=== PATIENT | female | born 1950 | race Caucasian/White ===

== ENCOUNTER → 2018-02-08 10:56 | Outpatient (CLI) | payer MEDICARE, OTHER, SELFPAY ==
--- NOTE | 2018-02-08 | DI.MG.S_ITS ---
BILATERAL DIGITAL SCREENING MAMMOGRAM 3D/2D WITH CAD: 02/08/2018 CLINICAL: Routine screening. Family history of breast cancer. Comparison is made to exams dated: 01/12/2017 mammogram - [facility], 11/13/2015 mammogram, and 12/04/2014 mammogram - [facility]. There are scattered fibroglandular elements in both breasts. Current study was also evaluated with a Computer Aided Detection (CAD) system. No significant masses, calcifications, or other findings are seen in either breast. There has been no significant interval change. IMPRESSION: NEGATIVE There is no mammographic evidence of malignancy. A 1 year screening mammogram is recommended.(02/09/2019) This exam was interpreted at Station ID: [id number]. NOTE: For mammograms, a report in lay terms will be sent to the patient. Approximately 15% of breast malignancies will not be visualized mammographically. In the management of a palpable breast mass, a negative mammogram must not discourage biopsy of a clinically suspicious lesion. Electronically Signed By: Julio [email or web address]:02/08/2018 11:52:38 letter sent: Normal Exam ACR BI-RADS Category 1: Negative [id number]
== END ==
PROVIDERS: PCP Physician Assistant Medical; Visit Provider Physician Assistant Medical
DX: Z12.31 Encounter for screening mammogram for malignant neoplasm of breast (principal); Z80.3 Family history of malignant neoplasm of breast
CPT/HCPCS: 77063; 77067

== ENCOUNTER 2018-04-27 10:30 | Outpatient (RCR) | payer MEDICARE, OTHER, SELFPAY ==
--- NOTE | 2018-03-06 17:10 | PT.OIE ---
Current Diagnoses Stiffness of left elbow, not elsewhere classified (03/06/18) Weakness (03/06/18) Nondisplaced fracture of head of left radius, initial encounter for closed fracture (03/06/18) Provider Visit Care Team Role Provider Type Renu Pringle PA-C Primary Care Provider Non-Staff Specialty: Medical Address: [address] [place] [address] [address], [place], [address] Email: EMMY Melendez Attending Provider Non-Staff Specialty: Family Practice Address: [address] [place] [address], [address], [place], [address] Email: Physical Therapy Initial Evaluation PT-OP-A Visit Information Start: 03/06/18 09:11 Freq: Status: Active Protocol: Document 03/06/18 16:23 ML (Rec: 03/06/18 17:04 ML [email or web address]) Out-Patient Physical Therapy Visit Information Visit Information Visit Type Initial Evaluation Visit Start Time 13:00 Visit Stop Time 13:45 Total Visit Minutes 45 Visit Number / Number of LINE MAINTAINER SECTION Visits 0 PT-OP-B Current Condition Start: 03/06/18 09:11 Freq: Status: Active Protocol: Document 03/06/18 16:23 ML (Rec: 03/06/18 17:04 ML [email or web address]) Current Condition History of Current Condition Onset Date 01/24/18 Current Complaints L radial head fx and elbow contracture History of Current Condition Pt fell on her elbow on and reports that her immediate x-ray indicated fracture of her radial head. Pt also states that her follow up x-ray a few weeks later indicated that a piece of the bone was chipped and is floating and that she was closed to healed. Doctor estimated a couple more weeks for full healing. The pt iced frequently wore a sling for 4 weeks after fracture which she believes has contributed to her current loss of motion. The pt states that she has pain when pressure is applied to her elbow by leaning on them or rolling onto the elbow in sleeping which wakes her. The pt denies any numbness or tingling, and has no pain when using her elbow to do functional activities unless it involves contact with her elbow. She mentions that she doesn't feel as strong in general, and notices that she is unable to lift her wts when she does her yoga exercises that involve hand wts. Her biggest complaints involve not being able to dance the [place] or reaching her cupboards in the kitchen which are both limited by her lack of ROM. 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 PT-OP-C Subjective Start: 03/06/18 09:11 Freq: Status: Active Protocol: Document 03/06/18 16:23 ML (Rec: 03/06/18 17:04 ML [email or web address]) OP-PT Subjective Patient Comments Patient Comments Pt was very clear about indicating that her ROM is the biggest limitation and is where she would like to improve in therapy most. Patient Questionnaires Quick Dash- Upper Extremity Quick Dash UE Score 18.18 Quick Dash UE Impairment 1 to 19% Impaired (Score 1-19) OP-PT Pain Assessment Location 1 Pain Location Details post elbow L Intensity 2 Scale Used Numeric (1 - 10) Frequency Intermittent Pain Duration only with contact pressure Other Pain Aggravating Factors leaning on elbows or rolling onto elbow while sleeping PT-OP-F Manual Assessment Start: 03/06/18 09:11 Freq: Status: Active Protocol: Document 03/06/18 16:23 ML (Rec: 03/06/18 17:04 ML [email or web address]) Manual Assessments Soft Tissue Assessment Soft Tissue Mobility Assessment tight wrist extensors on L PT-OP-K Range of Motion Start: 03/06/18 09:11 Freq: Status: Active Protocol: Document 03/06/18 16:23 ML (Rec: 03/06/18 17:04 ML [email or web address]) Shoulder Goniometric Range of Motion Shoulder Measured in Degrees L Testing Position Sitting Flexion 145 R Testing Position Sitting Flexion 161 Elbow/Forearm Range of Motion Elbow/Forearm Measured in Degrees L ROM Testing Position Sitting Elbow Flexion (degrees) 141 Elbow Extension (degrees) 30 Pronation (degrees) 94 Supination (degrees) 115 R ROM Testing Position Sitting Elbow Flexion (degrees) 156 Elbow Hyperextension 4 PT-OP-M Strength Start: 03/06/18 09:11 Freq: Status: Active Protocol: Document 03/06/18 16:23 ML (Rec: 03/06/18 17:04 ML [email or web address]) Shoulder Strength Shoulder Manual Muscle Testing L Flexion 4- Good- Extension 4 Good Abduction (C5) 4- Good- External Rotation 4 Good Internal Rotation 4 Good R Flexion 4- Good- Extension 4+ Good+ Abduction (C5) 4 Good External Rotation 4 Good Internal Rotation 4 Good Elbow/Forearm Strength Elbow and Forearm Manual Muscle Testing L Flexion (C6) 4+ Good+ Extension (C7) 4 Good Pronation 5 Normal Supination 5 Normal R Flexion (C6) 5 Normal Extension (C7) 4+ Good+ Wrist Strength Wrist Manual Muscle Testing L Flexion (C7) 4+ Good+ Extension (C6) 4 Good Ulnar Deviation 4 Good Radial Deviation 4 Good Comments some pain w/wrist flex R Flexion (C7) 4+ Good+ Extension (C6) 4+ Good+ Ulnar Deviation 4 Good Radial Deviation 4 Good Hand Rail Car Painter/Sandblaster/Pinch Strength Hand Strength Right Comments 45/46/45 3 trials Left Comments 46/40/45 3 trials PT-OP-Q Treatments Start: 03/06/18 09:11 Freq: Status: Active Protocol: Document 03/06/18 16:23 ML (Rec: 03/06/18 17:04 ML [email or web address]) Therapeutic Exercises Sitting Exercises 1 Sitting Exercise Name wrist ext stretch Side left PT-OP-T Assessment and Plan Start: 03/06/18 09:11 Freq: Status: Active Protocol: Document 03/06/18 16:23 ML (Rec: 03/06/18 17:04 ML [email or web address]) Physical Therapy Assessment Rehab Potential Rehabilitation Potential Good Evaluation Complexity Number of Personal Factors/Comorbidities 1-2 Number of Body Systems Impaired 4 or More Clinical Presentation at Evaluation Stable Impairments Impairments Functional Activities Functional Mobility Pain Posture ROM Soft Tissue Mobility Strength Tone Goals 2 Impairment dec strength Short Term Goal (STG) Pt will be independent with HEP. STG Duration 04/06/18 [facility] Goal (LTG) Pt will improve her elbow and strength to 5/5 without pain in order to do her yoga routine. LTG Duration 05/06/18 1 Impairment dec ROM Actuarial Consultant Goal (LTG) Pt will improve her ROM in order to reach her kitchen cupboards and dance the [place]. LTG Duration 05/06/18 Assessment Summary Assessment Pt presents to PT with evident elbow contracture. Pt's overall UE strength is strong regarding current condition, yet there seem to be some dec in strength bilaterally. She also indicates that she sometimes gets pain through her extensor muscles of her wrist, although did not present with pain when tested for wrist extension strength during the evaluation, but did indicate that there was some pain during wrist flexion and supination. The pt was given a wrist extensor stretch for her tight extensor muscles to work on at home. The pt demonstrated significantly more motion w/her R elbow than L, but there were limitations bilaterally in her shoulder ROM when assessed. Physical Therapy Plan Frequency and Duration Frequency of Treatment 2x/Week Duration of Treatment 2 months Plan of Care Start Date 03/06/18 Plan of Care End Date 05/06/18 Therapeutic Interventions Therapeutic Interventions Coordination Training Home Exercise Program Joint Mobilizations Manual Therapy Neuromuscular Re-education Patient/Caregiver Education Self-Care/Home Management Soft Tissue Mobilization Taping Therapeutic Activities Therapeutic Exercises Modalities Cold Pack/Ice Massage Electric Stimulation Hot Packs Infrared Therapy Iontophoresis Ultrasound Next Visit Focus/Plan Next Note Type Treatment Note Next Visit Plan HEP (stretch, strengthen), manual prn
--- NOTE | 2018-03-06 17:10 | PT.OPPOC ---
Current Diagnoses Stiffness of left elbow, not elsewhere classified (03/06/18) Weakness (03/06/18) Nondisplaced fracture of head of left radius, initial encounter for closed fracture (03/06/18) Provider Visit Care Team Role Provider Type Renu Pringle PA-C Primary Care Provider Non-Staff Specialty: Medical Address: [address] [place] [address] [address], [place], [address] Email: EMMY Melendez Attending Provider Non-Staff Specialty: Family Practice Address: [address] [place] [address] Drive, [address], [place], [address] Email: Plan Of Care PT-OP-T Assessment and Plan Start: 03/06/18 09:11 Freq: Status: Active Protocol: Document 03/06/18 16:23 ML (Rec: 03/06/18 17:04 ML [email or web address]) Physical Therapy Assessment Rehab Potential Rehabilitation Potential Good Evaluation Complexity Number of Personal Factors/Comorbidities 1-2 Number of Body Systems Impaired 4 or More Clinical Presentation at Evaluation Stable Impairments Impairments Functional Activities Functional Mobility Pain Posture ROM Soft Tissue Mobility Strength Tone Goals 2 Impairment dec strength Short Term Goal (STG) Pt will be independent with HEP. STG Duration 04/06/18 Jail Goal (LTG) Pt will improve her elbow and strength to 5/5 without pain in order to do her yoga routine. LTG Duration 05/06/18 1 Impairment dec ROM Tobacco Shaker Goal (LTG) Pt will improve her ROM in order to reach her kitchen cupboards and dance the [place]. LTG Duration 05/06/18 Assessment Summary Assessment Pt presents to PT with evident elbow contracture. Pt's overall UE strength is strong regarding current condition, yet there seem to be some dec in strength bilaterally. She also indicates that she sometimes gets pain through her extensor muscles of her wrist, although did not present with pain when tested for wrist extension strength during the evaluation, but did indicate that there was some pain during wrist flexion and supination. The pt was given a wrist extensor stretch for her tight extensor muscles to work on at home. The pt demonstrated significantly more motion w/her R elbow than L, but there were limitations bilaterally in her shoulder ROM when assessed. Physical Therapy Plan Frequency and Duration Frequency of Treatment 2x/Week Duration of Treatment 2 months Plan of Care Start Date 03/06/18 Plan of Care End Date 05/06/18 Therapeutic Interventions Therapeutic Interventions Coordination Training Home Exercise Program Joint Mobilizations Manual Therapy Neuromuscular Re-education Patient/Caregiver Education Self-Care/Home Management Soft Tissue Mobilization Taping Therapeutic Activities Therapeutic Exercises Modalities Cold Pack/Ice Massage Electric Stimulation Hot Packs Infrared Therapy Iontophoresis Ultrasound Next Visit Focus/Plan Next Note Type Treatment Note Next Visit Plan HEP (stretch, strengthen), manual prn Plan of Care Dates Plan of Care Start Date 03/06/18 Plan of Care End Date 05/06/18 Please Sign and Return: I have reviewed this Plan of Care and certify that the skilled therapy services above are required to meet the patient?s needs. Physician Signature Date Printed Name and Credentials Clinical Instructor Signature Printed Name and Credentials
--- NOTE | 2018-03-13 11:23 | PT.OTN ---
Current Diagnoses Nondisplaced fracture of head of left radius, initial encounter for closed fracture (03/13/18) Physical Therapy Treatment Note PT-OP-A Visit Information Start: 03/06/18 09:11 Freq: Status: Active Protocol: Document 03/13/18 11:13 SA (Rec: 03/13/18 11:23 SA [email or web address]) Out-Patient Physical Therapy Visit Information Visit Information Visit Type Treatment Note Visit Start Time 09:00 Visit Stop Time 09:53 Total Visit Minutes 53 Visit Number 07/15 PT-OP-B Current Condition Start: 03/06/18 09:11 Freq: Status: Active Protocol: Document 03/06/18 16:23 ML (Rec: 03/06/18 17:04 ML [email or web address]) Current Condition History of Current Condition Onset Date 01/24/18 Current Complaints L radial head fx and elbow contracture History of Current Condition Pt fell on her elbow on and reports that her immediate x-ray indicated fracture of her radial head. Pt also states that her follow up x-ray a few weeks later indicated that a piece of the bone was chipped and is floating and that she was closed to healed. Doctor estimated a couple more weeks for full healing. The pt iced frequently wore a sling for 4 weeks after fracture which she believes has contributed to her current loss of motion. The pt states that she has pain when pressure is applied to her elbow by leaning on them or rolling onto the elbow in sleeping which wakes her. The pt denies any numbness or tingling, and has no pain when using her elbow to do functional activities unless it involves contact with her elbow. She mentions that she doesn't feel as strong in general, and notices that she is unable to lift her wts when she does her yoga exercises that involve hand wts. Her biggest complaints involve not being able to dance the [place] or reaching her cupboards in the kitchen which are both limited by her lack of ROM. 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 PT-OP-C Subjective Start: 03/06/18 09:11 Freq: Status: Active Protocol: Document 03/13/18 11:13 SA (Rec: 03/13/18 11:23 SA [email or web address]) OP-PT Subjective Patient Comments Patient Comments Pt notes progress, and increased ability to extend and flex elbow, doing HEP regularly. Patient Reported Progress Improving PT-OP-F Manual Assessment Start: 03/06/18 09:11 Freq: Status: Active Protocol: Document 03/06/18 16:23 ML (Rec: 03/06/18 17:04 ML [email or web address]) Manual Assessments Soft Tissue Assessment Soft Tissue Mobility Assessment tight wrist extensors on L PT-OP-K Range of Motion Start: 03/06/18 09:11 Freq: Status: Active Protocol: Document 03/06/18 16:23 ML (Rec: 03/06/18 17:04 ML [email or web address]) Shoulder Goniometric Range of Motion Shoulder Measured in Degrees L Testing Position Sitting Flexion 145 R Testing Position Sitting Flexion 161 Elbow/Forearm Range of Motion Elbow/Forearm Measured in Degrees L ROM Testing Position Sitting Elbow Flexion (degrees) 141 Elbow Extension (degrees) 30 Pronation (degrees) 94 Supination (degrees) 115 R ROM Testing Position Sitting Elbow Flexion (degrees) 156 Elbow Hyperextension 4 PT-OP-M Strength Start: 03/06/18 09:11 Freq: Status: Active Protocol: Document 03/06/18 16:23 ML (Rec: 03/06/18 17:04 ML [email or web address]) Shoulder Strength Shoulder Manual Muscle Testing L Flexion 4- Good- Extension 4 Good Abduction (C5) 4- Good- External Rotation 4 Good Internal Rotation 4 Good R Flexion 4- Good- Extension 4+ Good+ Abduction (C5) 4 Good External Rotation 4 Good Internal Rotation 4 Good Elbow/Forearm Strength Elbow and Forearm Manual Muscle Testing L Flexion (C6) 4+ Good+ Extension (C7) 4 Good Pronation 5 Normal Supination 5 Normal R Flexion (C6) 5 Normal Extension (C7) 4+ Good+ Wrist Strength Wrist Manual Muscle Testing L Flexion (C7) 4+ Good+ Extension (C6) 4 Good Ulnar Deviation 4 Good Radial Deviation 4 Good Comments some pain w/wrist flex R Flexion (C7) 4+ Good+ Extension (C6) 4+ Good+ Ulnar Deviation 4 Good Radial Deviation 4 Good Hand Low Pressure Kettle Operator/Pinch Strength Hand Strength Right Comments 45/46/45 3 trials Left Comments 46/40/45 3 trials PT-OP-Q Treatments Start: 03/06/18 09:11 Freq: Status: Active Protocol: Document 03/13/18 11:13 SA (Rec: 03/13/18 11:23 SA [email or web address]) Therapeutic Exercises Supine Exercises Shoulder flexion Resistance 3# Reps/Minutes 2 x 15 1 Supine Exercise Name elbow ext Side bilateral Resistance 3# Reps/Minutes 2 x 15 Comments HEP Sitting Exercises 2 Sitting Exercise Name radial and ulnar deviation Side bilateral Resistance level 1 Reps/Minutes 2 x 15 1 Sitting Exercise Name wrist ext stretch Side left Reps/Minutes 30 holds Manual Therapy Treatment Soft Tissue Mobilization 1 Body Location L wrist extensors Mobilization Type Cross-Friction Myofascial Release Rolling Sustained Pressure Intensity/Depth Moderate Body Position Sitting PT-OP-R Modalities Start: 03/06/18 09:11 Freq: Status: Active Protocol: Document 03/13/18 11:13 SA (Rec: 03/13/18 11:23 SA [email or web address]) Hot Pack/Cold Pack Treatment Cold Pack Location L elbow Treatment Duration (minutes) 10 PT-OP-T Assessment and Plan Start: 03/06/18 09:11 Freq: Status: Active Protocol: Document 03/13/18 11:13 SA (Rec: 03/13/18 11:23 SA [email or web address]) Physical Therapy Assessment Rehab Potential Rehabilitation Potential Good Progress Towards Goals Progress Towards Goals Progressing Toward Goals Assessment Summary Assessment Pt tolerating HEP well with noted improvement of elbow ROM , uses ice as needed for pain management. Physical Therapy Plan Next Visit Focus/Plan Next Note Type Treatment Note Next Visit Plan Continue with HEP and icing at home. Re assess tolerance of STM/manual treatment.
--- NOTE | 2018-03-16 13:31 | PT.OTN ---
Current Diagnoses Nondisplaced fracture of head of left radius, initial encounter for closed fracture (03/16/18) Physical Therapy Treatment Note PT-OP-A Visit Information Start: 03/06/18 09:11 Freq: Status: Active Protocol: Document 03/16/18 13:20 SA (Rec: 03/16/18 13:31 SA [email or web address]) Out-Patient Physical Therapy Visit Information Visit Information Visit Type Treatment Note Visit Start Time 09:50 Visit Stop Time 10:35 Total Visit Minutes 45 Visit Number 4/10 Number of HEALTHCARE TECHNICIAN Visits 2 PT-OP-B Current Condition Start: 03/06/18 09:11 Freq: Status: Active Protocol: Document 03/06/18 16:23 ML (Rec: 03/06/18 17:04 ML [email or web address]) Current Condition History of Current Condition Onset Date 01/24/18 Current Complaints L radial head fx and elbow contracture History of Current Condition Pt fell on her elbow on and reports that her immediate x-ray indicated fracture of her radial head. Pt also states that her follow up x-ray a few weeks later indicated that a piece of the bone was chipped and is floating and that she was closed to healed. Doctor estimated a couple more weeks for full healing. The pt iced frequently wore a sling for 4 weeks after fracture which she believes has contributed to her current loss of motion. The pt states that she has pain when pressure is applied to her elbow by leaning on them or rolling onto the elbow in sleeping which wakes her. The pt denies any numbness or tingling, and has no pain when using her elbow to do functional activities unless it involves contact with her elbow. She mentions that she doesn't feel as strong in general, and notices that she is unable to lift her wts when she does her yoga exercises that involve hand wts. Her biggest complaints involve not being able to dance the [place] or reaching her cupboards in the kitchen which are both limited by her lack of ROM. 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 PT-OP-C Subjective Start: 03/06/18 09:11 Freq: Status: Active Protocol: Document 03/16/18 13:20 SA (Rec: 03/16/18 13:31 SA [email or web address]) OP-PT Subjective Patient Comments Patient Comments Gradual improvement in motion of elbow. Decreasing instances of pain. Patient Reported Progress Improving PT-OP-F Manual Assessment Start: 03/06/18 09:11 Freq: Status: Active Protocol: Document 03/06/18 16:23 ML (Rec: 03/06/18 17:04 ML [email or web address]) Manual Assessments Soft Tissue Assessment Soft Tissue Mobility Assessment tight wrist extensors on L PT-OP-K Range of Motion Start: 03/06/18 09:11 Freq: Status: Active Protocol: Document 03/06/18 16:23 ML (Rec: 03/06/18 17:04 ML [email or web address]) Shoulder Goniometric Range of Motion Shoulder Measured in Degrees L Testing Position Sitting Flexion 145 R Testing Position Sitting Flexion 161 Elbow/Forearm Range of Motion Elbow/Forearm Measured in Degrees L ROM Testing Position Sitting Elbow Flexion (degrees) 141 Elbow Extension (degrees) 30 Pronation (degrees) 94 Supination (degrees) 115 R ROM Testing Position Sitting Elbow Flexion (degrees) 156 Elbow Hyperextension 4 PT-OP-M Strength Start: 03/06/18 09:11 Freq: Status: Active Protocol: Document 03/06/18 16:23 ML (Rec: 03/06/18 17:04 ML [email or web address]) Shoulder Strength Shoulder Manual Muscle Testing L Flexion 4- Good- Extension 4 Good Abduction (C5) 4- Good- External Rotation 4 Good Internal Rotation 4 Good R Flexion 4- Good- Extension 4+ Good+ Abduction (C5) 4 Good External Rotation 4 Good Internal Rotation 4 Good Elbow/Forearm Strength Elbow and Forearm Manual Muscle Testing L Flexion (C6) 4+ Good+ Extension (C7) 4 Good Pronation 5 Normal Supination 5 Normal R Flexion (C6) 5 Normal Extension (C7) 4+ Good+ Wrist Strength Wrist Manual Muscle Testing L Flexion (C7) 4+ Good+ Extension (C6) 4 Good Ulnar Deviation 4 Good Radial Deviation 4 Good Comments some pain w/wrist flex R Flexion (C7) 4+ Good+ Extension (C6) 4+ Good+ Ulnar Deviation 4 Good Radial Deviation 4 Good Hand Inspector Rag Sorting/Pinch Strength Hand Strength Right Comments 45/46/45 3 trials Left Comments 46/40/45 3 trials PT-OP-Q Treatments Start: 03/06/18 09:11 Freq: Status: Active Protocol: Document 03/16/18 13:20 SA (Rec: 03/16/18 13:31 SA [email or web address]) Cardio Equipment Upper Body Ergometer (UBE) Duration (Minutes) 4 Other level 60 Therapeutic Exercises Supine Exercises Shoulder flexion Resistance 3# Reps/Minutes 2 x 15 1 Supine Exercise Name elbow ext Side bilateral Resistance 3# Reps/Minutes 2 x 15 Sitting Exercises 2 Sitting Exercise Name radial and ulnar deviation Side bilateral Resistance level 1 Reps/Minutes 2 x 15 1 Sitting Exercise Name wrist ext stretch Side left Reps/Minutes 30 holds Manual Therapy Treatment Soft Tissue Mobilization 1 Body Location L wrist extensors Mobilization Type Cross-Friction Myofascial Release Rolling Sustained Pressure Intensity/Depth Moderate Body Position Sitting PT-OP-R Modalities Start: 03/06/18 09:11 Freq: Status: Active Protocol: Document 03/16/18 13:20 (Rec: 03/16/18 13:31 [email or web address]) Hot Pack/Cold Pack Treatment Cold Pack Location L elbow Treatment Duration (minutes) 10 PT-OP-T Assessment and Plan Start: 03/06/18 09:11 Freq: Status: Active Protocol: Document 03/16/18 13:20 (Rec: 03/16/18 13:31 [email or web address]) Physical Therapy Assessment Assessment Summary Assessment Pt doing HEP daily and to assess response to UBE, continued increase in ROM. Physical Therapy Plan Next Visit Focus/Plan Next Note Type Treatment Note Next Visit Plan Pt to continue with HEP and icing and assess response to UBE.
--- NOTE | 2018-03-20 16:04 | PT.OTN ---
Current Diagnoses Nondisplaced fracture of head of left radius, initial encounter for closed fracture (03/16/18) Physical Therapy Treatment Note PT-OP-A Visit Information Start: 03/06/18 09:11 Freq: Status: Active Protocol: Document 03/20/18 15:11 [facility] (Rec: 03/20/18 15:29 [facility] [email or web address]) Out-Patient Physical Therapy Visit Information Visit Information Visit Type Treatment Note Visit Note 1st 15 min of rx performed by Elizabeth Null PT then taken over by this PT Visit Start Time 13:30 Visit Stop Time 14:25 Total Visit Minutes 55 Visit Number 5/ Number of TAPPET ADJUSTER Visits 0 PT-OP-B Current Condition Start: 03/06/18 09:11 Freq: Status: Active Protocol: Document 03/06/18 16:23 ML (Rec: 03/06/18 17:04 ML [email or web address]) Current Condition History of Current Condition Onset Date 01/24/18 Current Complaints L radial head fx and elbow contracture History of Current Condition Pt fell on her elbow on and reports that her immediate x-ray indicated fracture of her radial head. Pt also states that her follow up x-ray a few weeks later indicated that a piece of the bone was chipped and is floating and that she was closed to healed. Doctor estimated a couple more weeks for full healing. The pt iced frequently wore a sling for 4 weeks after fracture which she believes has contributed to her current loss of motion. The pt states that she has pain when pressure is applied to her elbow by leaning on them or rolling onto the elbow in sleeping which wakes her. The pt denies any numbness or tingling, and has no pain when using her elbow to do functional activities unless it involves contact with her elbow. She mentions that she doesn't feel as strong in general, and notices that she is unable to lift her wts when she does her yoga exercises that involve hand wts. Her biggest complaints involve not being able to dance the [place] or reaching her cupboards in the kitchen which are both limited by her lack of ROM. 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 PT-OP-C Subjective Start: 03/06/18 09:11 Freq: Status: Active Protocol: Document 03/20/18 15:11 [facility] (Rec: 03/20/18 15:38 [facility] [email or web address]) OP-PT Subjective Patient Comments Patient Comments Pt reports she used her split mirror to help with improving elbow flexion. PT-OP-F Manual Assessment Start: 03/06/18 09:11 Freq: Status: Active Protocol: Document 03/06/18 16:23 ML (Rec: 03/06/18 17:04 ML [email or web address]) Manual Assessments Soft Tissue Assessment Soft Tissue Mobility Assessment tight wrist extensors on L PT-OP-K Range of Motion Start: 03/06/18 09:11 Freq: Status: Active Protocol: Document 03/06/18 16:23 ML (Rec: 03/06/18 17:04 ML [email or web address]) Shoulder Goniometric Range of Motion Shoulder Measured in Degrees L Testing Position Sitting Flexion 145 R Testing Position Sitting Flexion 161 Elbow/Forearm Range of Motion Elbow/Forearm Measured in Degrees L ROM Testing Position Sitting Elbow Flexion (degrees) 141 Elbow Extension (degrees) 30 Pronation (degrees) 94 Supination (degrees) 115 R ROM Testing Position Sitting Elbow Flexion (degrees) 156 Elbow Hyperextension 4 PT-OP-M Strength Start: 03/06/18 09:11 Freq: Status: Active Protocol: Document 03/06/18 16:23 ML (Rec: 03/06/18 17:04 ML [email or web address]) Shoulder Strength Shoulder Manual Muscle Testing L Flexion 4- Good- Extension 4 Good Abduction (C5) 4- Good- External Rotation 4 Good Internal Rotation 4 Good R Flexion 4- Good- Extension 4+ Good+ Abduction (C5) 4 Good External Rotation 4 Good Internal Rotation 4 Good Elbow/Forearm Strength Elbow and Forearm Manual Muscle Testing L Flexion (C6) 4+ Good+ Extension (C7) 4 Good Pronation 5 Normal Supination 5 Normal R Flexion (C6) 5 Normal Extension (C7) 4+ Good+ Wrist Strength Wrist Manual Muscle Testing L Flexion (C7) 4+ Good+ Extension (C6) 4 Good Ulnar Deviation 4 Good Radial Deviation 4 Good Comments some pain w/wrist flex R Flexion (C7) 4+ Good+ Extension (C6) 4+ Good+ Ulnar Deviation 4 Good Radial Deviation 4 Good Hand Dietitian Research/Pinch Strength Hand Strength Right Comments 45/46/45 3 trials Left Comments 46/40/45 3 trials PT-OP-Q Treatments Start: 03/06/18 09:11 Freq: Status: Active Protocol: Document 03/20/18 15:11 [facility] (Rec: 03/20/18 15:38 [facility] [email or web address]) Cardio Equipment Upper Body Ergometer (UBE) Duration (Minutes) 5 RPM 60 Manual Therapy Treatment Soft Tissue Mobilization biceps Body Location biceps medially Mobilization Type Rolling Intensity/Depth Moderate Body Position Supine 1 Body Location L wrist extensors Mobilization Type Cross-Friction Myofascial Release Rolling Sustained Pressure Intensity/Depth Moderate Body Position Supine Joint Mobilizations proximal radioulnar Joint radius Direction AP with motion into ext distal radioulnar Joint distal radioulnar Direction AP Grade II Body Position Supine Comments sustained humeroulnar Joint humeroulnar Direction distraction FM into elbow flex Body Position Supine PT-OP-R Modalities Start: 03/06/18 09:11 Freq: Status: Active Protocol: Document 03/20/18 15:11 [facility] (Rec: 03/20/18 15:29 [facility] [email or web address]) Hot Pack/Cold Pack Treatment Cold Pack Location L elbow Treatment Duration (minutes) 10 Ultrasound Therapy Treatment L elbow Treatment Duration (minutes) 8 Patient Position Supine Coupling Medium Ultrasound Gel Applicator Size (cm2) 2 Frequency Setting (mHz) 1 Mode Setting Continuous Duty Cycle 50% Intensity Setting (w/cm2) 1.5 Comments ant forearm laterally with elbow in ext and supination PT-OP-T Assessment and Plan Start: 03/06/18 09:11 Freq: Status: Active Protocol: Document 03/20/18 15:11 [facility] (Rec: 03/20/18 15:29 [facility] [email or web address]) Physical Therapy Assessment Goals 2 Impairment dec strength Short Term Goal (STG) Pt will be independent with HEP. STG Duration 04/06/18 [employer] Metals Engraver Hand Goal (LTG) Pt will improve her elbow and strength to 5/5 without pain in order to do her yoga routine. LTG Duration 05/06/18 1 Impairment dec ROM Hard Metals Engraver Hand Goal (LTG) Pt will improve her ROM in order to reach her kitchen cupboards and dance the [place]. LTG Duration 05/06/18 Assessment Summary Assessment Pt had significant improvement in elbow flexion to being able to easily touch her shoulder with hand with elbow flex. Pt improved with elbow ext but had greater ease into elbow ext with pronation, whereas elbow ext with supination was painful and limited. Physical Therapy Plan Frequency and Duration Frequency of Treatment 2x/Week Duration of Treatment 2 months Plan of Care Start Date 03/06/18 Plan of Care End Date 05/06/18 Next Visit Focus/Plan Next Note Type Treatment Note Next Visit Plan Cont to work on bicep mobility , gentle distal uloradial mobs & humeroulnar mobs; progress exercsies
--- NOTE | 2018-03-23 15:31 | PT.OTN ---
Current Diagnoses Nondisplaced fracture of head of left radius, initial encounter for closed fracture (03/23/18) Physical Therapy Treatment Note PT-OP-A Visit Information Start: 03/06/18 09:11 Freq: Status: Active Protocol: Document 03/23/18 15:18 [facility] (Rec: 03/23/18 15:31 [facility] [email or web address]) Out-Patient Physical Therapy Visit Information Visit Information Visit Type Treatment Note Visit Start Time 13:40 Visit Stop Time 14:20 Total Visit Minutes 40 Visit Number 6/10 Number of FILM EXAMINER Visits 1 PT-OP-B Current Condition Start: 03/06/18 09:11 Freq: Status: Active Protocol: Document 03/06/18 16:23 ML (Rec: 03/06/18 17:04 ML [email or web address]) Current Condition History of Current Condition Onset Date 01/24/18 Current Complaints L radial head fx and elbow contracture History of Current Condition Pt fell on her elbow on and reports that her immediate x-ray indicated fracture of her radial head. Pt also states that her follow up x-ray a few weeks later indicated that a piece of the bone was chipped and is floating and that she was closed to healed. Doctor estimated a couple more weeks for full healing. The pt iced frequently wore a sling for 4 weeks after fracture which she believes has contributed to her current loss of motion. The pt states that she has pain when pressure is applied to her elbow by leaning on them or rolling onto the elbow in sleeping which wakes her. The pt denies any numbness or tingling, and has no pain when using her elbow to do functional activities unless it involves contact with her elbow. She mentions that she doesn't feel as strong in general, and notices that she is unable to lift her wts when she does her yoga exercises that involve hand wts. Her biggest complaints involve not being able to dance the [place] or reaching her cupboards in the kitchen which are both limited by her lack of ROM. 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 PT-OP-C Subjective Start: 03/06/18 09:11 Freq: Status: Active Protocol: Document 03/23/18 15:18 [facility] (Rec: 03/23/18 15:31 [facility] [email or web address]) OP-PT Subjective Patient Comments Patient Comments Pt reports feeling like last visit really helped free up some movement, doing HEP daily . Patient Reported Progress Improving PT-OP-F Manual Assessment Start: 03/06/18 09:11 Freq: Status: Active Protocol: Document 03/06/18 16:23 ML (Rec: 03/06/18 17:04 ML [email or web address]) Manual Assessments Soft Tissue Assessment Soft Tissue Mobility Assessment tight wrist extensors on L PT-OP-K Range of Motion Start: 03/06/18 09:11 Freq: Status: Active Protocol: Document 03/06/18 16:23 ML (Rec: 03/06/18 17:04 ML [email or web address]) Shoulder Goniometric Range of Motion Shoulder Measured in Degrees L Testing Position Sitting Flexion 145 R Testing Position Sitting Flexion 161 Elbow/Forearm Range of Motion Elbow/Forearm Measured in Degrees L ROM Testing Position Sitting Elbow Flexion (degrees) 141 Elbow Extension (degrees) 30 Pronation (degrees) 94 Supination (degrees) 115 R ROM Testing Position Sitting Elbow Flexion (degrees) 156 Elbow Hyperextension 4 PT-OP-M Strength Start: 03/06/18 09:11 Freq: Status: Active Protocol: Document 03/06/18 16:23 ML (Rec: 03/06/18 17:04 ML [email or web address]) Shoulder Strength Shoulder Manual Muscle Testing L Flexion 4- Good- Extension 4 Good Abduction (C5) 4- Good- External Rotation 4 Good Internal Rotation 4 Good R Flexion 4- Good- Extension 4+ Good+ Abduction (C5) 4 Good External Rotation 4 Good Internal Rotation 4 Good Elbow/Forearm Strength Elbow and Forearm Manual Muscle Testing L Flexion (C6) 4+ Good+ Extension (C7) 4 Good Pronation 5 Normal Supination 5 Normal R Flexion (C6) 5 Normal Extension (C7) 4+ Good+ Wrist Strength Wrist Manual Muscle Testing L Flexion (C7) 4+ Good+ Extension (C6) 4 Good Ulnar Deviation 4 Good Radial Deviation 4 Good Comments some pain w/wrist flex R Flexion (C7) 4+ Good+ Extension (C6) 4+ Good+ Ulnar Deviation 4 Good Radial Deviation 4 Good Hand Dispersion Mixer/Pinch Strength Hand Strength Right Comments 45/46/45 3 trials Left Comments 46/40/45 3 trials PT-OP-Q Treatments Start: 03/06/18 09:11 Freq: Status: Active Protocol: Document 03/23/18 15:18 [facility] (Rec: 03/23/18 15:31 [facility] [email or web address]) Cardio Equipment Upper Body Ergometer (UBE) Duration (Minutes) 5 RPM 60 Therapeutic Exercises Supine Exercises Shoulder flexion Resistance 3# Reps/Minutes 2 x 15 1 Supine Exercise Name elbow ext Side bilateral Resistance 3# Reps/Minutes 2 x 15 Sitting Exercises 2 Sitting Exercise Name radial and ulnar deviation Side bilateral Resistance level 1 Reps/Minutes 2 x 15 1 Sitting Exercise Name wrist ext stretch Side left Reps/Minutes 30 holds Manual Therapy Treatment Soft Tissue Mobilization 1 Body Location L wrist extensors Mobilization Type Cross-Friction Myofascial Release Rolling Sustained Pressure Intensity/Depth Moderate Body Position Supine Joint Mobilizations proximal radioulnar Joint radius Direction AP with motion into ext distal radioulnar Joint distal radioulnar Direction AP Grade II Body Position Supine Comments sustained humeroulnar Joint humeroulnar Direction distraction FM into elbow flex Body Position Supine PT-OP-R Modalities Start: 03/06/18 09:11 Freq: Status: Active Protocol: Document 03/20/18 15:11 [facility] (Rec: 03/20/18 15:29 [facility] [email or web address]) Hot Pack/Cold Pack Treatment Cold Pack Location L elbow Treatment Duration (minutes) 10 Ultrasound Therapy Treatment L elbow Treatment Duration (minutes) 8 Patient Position Supine Coupling Medium Ultrasound Gel Applicator Size (cm2) 2 Frequency Setting (mHz) 1 Mode Setting Continuous Duty Cycle 50% Intensity Setting (w/cm2) 1.5 Comments ant forearm laterally with elbow in ext and supination PT-OP-T Assessment and Plan Start: 03/06/18 09:11 Freq: Status: Active Protocol: Document 03/23/18 15:18 (Rec: 03/23/18 15:31 [email or web address]) Physical Therapy Assessment Assessment Summary Assessment Pt still presents with limitation with elbow EXT in supination vs pronation, tolerated joint mobs and STM well from last visit. Physical Therapy Plan Next Visit Focus/Plan Next Note Type Treatment Note Next Visit Plan Continue with distal uloradial mobs and humeroulnar mobs, progress ROM and strengthening .
--- NOTE | 2018-03-27 10:27 | PT.OTN ---
Current Diagnoses Nondisplaced fracture of head of left radius, initial encounter for closed fracture (03/27/18) Physical Therapy Treatment Note PT-OP-A Visit Information Start: 03/06/18 09:11 Freq: Status: Active Protocol: Document 03/27/18 10:17 [facility] (Rec: 03/27/18 10:27 [facility] [email or web address]) Out-Patient Physical Therapy Visit Information Visit Information Visit Type Treatment Note Visit Start Time 08:20 Visit Stop Time 09:06 Total Visit Minutes 41 Visit Number 7/ Number of COMMERCIAL TECHNICIAN Visits 2 PT-OP-B Current Condition Start: 03/06/18 09:11 Freq: Status: Active Protocol: Document 03/06/18 16:23 ML (Rec: 03/06/18 17:04 ML [email or web address]) Current Condition History of Current Condition Onset Date 01/24/18 Current Complaints L radial head fx and elbow contracture History of Current Condition Pt fell on her elbow on and reports that her immediate x-ray indicated fracture of her radial head. Pt also states that her follow up x-ray a few weeks later indicated that a piece of the bone was chipped and is floating and that she was closed to healed. Doctor estimated a couple more weeks for full healing. The pt iced frequently wore a sling for 4 weeks after fracture which she believes has contributed to her current loss of motion. The pt states that she has pain when pressure is applied to her elbow by leaning on them or rolling onto the elbow in sleeping which wakes her. The pt denies any numbness or tingling, and has no pain when using her elbow to do functional activities unless it involves contact with her elbow. She mentions that she doesn't feel as strong in general, and notices that she is unable to lift her wts when she does her yoga exercises that involve hand wts. Her biggest complaints involve not being able to dance the [place] or reaching her cupboards in the kitchen which are both limited by her lack of ROM. 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 PT-OP-C Subjective Start: 03/06/18 09:11 Freq: Status: Active Protocol: Document 03/27/18 10:17 [facility] (Rec: 03/27/18 10:27 [facility] [email or web address]) OP-PT Subjective Patient Comments Patient Comments Feeling pretty good, about the same with no increase in pain . Patient Reported Progress Same PT-OP-F Manual Assessment Start: 03/06/18 09:11 Freq: Status: Active Protocol: Document 03/06/18 16:23 ML (Rec: 03/06/18 17:04 ML [email or web address]) Manual Assessments Soft Tissue Assessment Soft Tissue Mobility Assessment tight wrist extensors on L PT-OP-K Range of Motion Start: 03/06/18 09:11 Freq: Status: Active Protocol: Document 03/06/18 16:23 ML (Rec: 03/06/18 17:04 ML [email or web address]) Shoulder Goniometric Range of Motion Shoulder Measured in Degrees L Testing Position Sitting Flexion 145 R Testing Position Sitting Flexion 161 Elbow/Forearm Range of Motion Elbow/Forearm Measured in Degrees L ROM Testing Position Sitting Elbow Flexion (degrees) 141 Elbow Extension (degrees) 30 Pronation (degrees) 94 Supination (degrees) 115 R ROM Testing Position Sitting Elbow Flexion (degrees) 156 Elbow Hyperextension 4 PT-OP-M Strength Start: 03/06/18 09:11 Freq: Status: Active Protocol: Document 03/06/18 16:23 ML (Rec: 03/06/18 17:04 ML [email or web address]) Shoulder Strength Shoulder Manual Muscle Testing L Flexion 4- Good- Extension 4 Good Abduction (C5) 4- Good- External Rotation 4 Good Internal Rotation 4 Good R Flexion 4- Good- Extension 4+ Good+ Abduction (C5) 4 Good External Rotation 4 Good Internal Rotation 4 Good Elbow/Forearm Strength Elbow and Forearm Manual Muscle Testing L Flexion (C6) 4+ Good+ Extension (C7) 4 Good Pronation 5 Normal Supination 5 Normal R Flexion (C6) 5 Normal Extension (C7) 4+ Good+ Wrist Strength Wrist Manual Muscle Testing L Flexion (C7) 4+ Good+ Extension (C6) 4 Good Ulnar Deviation 4 Good Radial Deviation 4 Good Comments some pain w/wrist flex R Flexion (C7) 4+ Good+ Extension (C6) 4+ Good+ Ulnar Deviation 4 Good Radial Deviation 4 Good Hand Yoga Instructor/Pinch Strength Hand Strength Right Comments 45/46/45 3 trials Left Comments 46/40/45 3 trials PT-OP-Q Treatments Start: 03/06/18 09:11 Freq: Status: Active Protocol: Document 03/27/18 10:17 [facility] (Rec: 03/27/18 10:27 [facility] [email or web address]) Cardio Equipment Upper Body Ergometer (UBE) Duration (Minutes) 6 RPM 70 Therapeutic Exercises Supine Exercises Shoulder flexion Resistance 3# Reps/Minutes 2x 20 Sitting Exercises 2 Sitting Exercise Name radial and ulnar deviation Side bilateral Resistance level 1 Reps/Minutes 2 x 15 1 Sitting Exercise Name wrist ext stretch Side left Reps/Minutes 30 holds Manual Therapy Treatment Soft Tissue Mobilization biceps Body Location biceps medially Mobilization Type Rolling Intensity/Depth Moderate Body Position Supine Joint Mobilizations proximal radioulnar Joint radius Direction AP with motion into ext distal radioulnar Joint distal radioulnar Direction AP Grade II Body Position Supine Comments sustained humeroulnar Joint humeroulnar Direction distraction FM into elbow flex Body Position Supine PT-OP-R Modalities Start: 03/06/18 09:11 Freq: Status: Active Protocol: Document 03/27/18 10:17 [facility] (Rec: 03/27/18 10:27 [email or web address]) Hot Pack/Cold Pack Treatment Cold Pack Location L elbow Treatment Duration (minutes) 10 PT-OP-T Assessment and Plan Start: 03/06/18 09:11 Freq: Status: Active Protocol: Document 03/27/18 10:17 [facility] (Rec: 03/27/18 10:27 [email or web address]) Physical Therapy Assessment Progress Towards Goals Progress Towards Goals Progressing Toward Goals Assessment Summary Assessment Improving elbow extension with Supination, decreased pain and abilty to sustain position . Physical Therapy Plan Next Visit Focus/Plan Next Note Type Treatment Note Next Visit Plan Continue with joint mobilizations and soft tissue, progress UE strengthening as able.
--- NOTE | 2018-04-03 11:41 | PT.OTN ---
Current Diagnoses Nondisplaced fracture of head of left radius, initial encounter for closed fracture (04/03/18) Physical Therapy Treatment Note PT-OP-A Visit Information Start: 03/06/18 09:11 Freq: Status: Active Protocol: Document 04/03/18 11:33 SA (Rec: 04/03/18 11:41 SA [email or web address]) Out-Patient Physical Therapy Visit Information Visit Information Visit Type Treatment Note Visit Start Time 10:30 Visit Stop Time 11:20 Total Visit Minutes 50 Visit Number 8/ Number of PAPER GUILLOTINE OPERATOR Visits 3 PT-OP-B Current Condition Start: 03/06/18 09:11 Freq: Status: Active Protocol: Document 03/06/18 16:23 ML (Rec: 03/06/18 17:04 ML [email or web address]) Current Condition History of Current Condition Onset Date 01/24/18 Current Complaints L radial head fx and elbow contracture History of Current Condition Pt fell on her elbow on and reports that her immediate x-ray indicated fracture of her radial head. Pt also states that her follow up x-ray a few weeks later indicated that a piece of the bone was chipped and is floating and that she was closed to healed. Doctor estimated a couple more weeks for full healing. The pt iced frequently wore a sling for 4 weeks after fracture which she believes has contributed to her current loss of motion. The pt states that she has pain when pressure is applied to her elbow by leaning on them or rolling onto the elbow in sleeping which wakes her. The pt denies any numbness or tingling, and has no pain when using her elbow to do functional activities unless it involves contact with her elbow. She mentions that she doesn't feel as strong in general, and notices that she is unable to lift her wts when she does her yoga exercises that involve hand wts. Her biggest complaints involve not being able to dance the [place] or reaching her cupboards in the kitchen which are both limited by her lack of ROM. 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 PT-OP-C Subjective Start: 03/06/18 09:11 Freq: Status: Active Protocol: Document 04/03/18 11:33 SA (Rec: 04/03/18 11:41 SA [email or web address]) OP-PT Subjective Patient Comments Patient Comments Nothing new to report, no pain but still occasional tightness with elbow EXT and palm up. PT-OP-F Manual Assessment Start: 03/06/18 09:11 Freq: Status: Active Protocol: Document 03/06/18 16:23 ML (Rec: 03/06/18 17:04 ML [email or web address]) Manual Assessments Soft Tissue Assessment Soft Tissue Mobility Assessment tight wrist extensors on L PT-OP-K Range of Motion Start: 03/06/18 09:11 Freq: Status: Active Protocol: Document 03/06/18 16:23 ML (Rec: 03/06/18 17:04 ML [email or web address]) Shoulder Goniometric Range of Motion Shoulder Measured in Degrees L Testing Position Sitting Flexion 145 R Testing Position Sitting Flexion 161 Elbow/Forearm Range of Motion Elbow/Forearm Measured in Degrees L ROM Testing Position Sitting Elbow Flexion (degrees) 141 Elbow Extension (degrees) 30 Pronation (degrees) 94 Supination (degrees) 115 R ROM Testing Position Sitting Elbow Flexion (degrees) 156 Elbow Hyperextension 4 PT-OP-M Strength Start: 03/06/18 09:11 Freq: Status: Active Protocol: Document 03/06/18 16:23 ML (Rec: 03/06/18 17:04 ML [email or web address]) Shoulder Strength Shoulder Manual Muscle Testing L Flexion 4- Good- Extension 4 Good Abduction (C5) 4- Good- External Rotation 4 Good Internal Rotation 4 Good R Flexion 4- Good- Extension 4+ Good+ Abduction (C5) 4 Good External Rotation 4 Good Internal Rotation 4 Good Elbow/Forearm Strength Elbow and Forearm Manual Muscle Testing L Flexion (C6) 4+ Good+ Extension (C7) 4 Good Pronation 5 Normal Supination 5 Normal R Flexion (C6) 5 Normal Extension (C7) 4+ Good+ Wrist Strength Wrist Manual Muscle Testing L Flexion (C7) 4+ Good+ Extension (C6) 4 Good Ulnar Deviation 4 Good Radial Deviation 4 Good Comments some pain w/wrist flex R Flexion (C7) 4+ Good+ Extension (C6) 4+ Good+ Ulnar Deviation 4 Good Radial Deviation 4 Good Hand Ribbon Blocker/Pinch Strength Hand Strength Right Comments 45/46/45 3 trials Left Comments 46/40/45 3 trials PT-OP-Q Treatments Start: 03/06/18 09:11 Freq: Status: Active Protocol: Document 04/03/18 11:33 SA (Rec: 04/03/18 11:41 SA [email or web address]) Cardio Equipment Upper Body Ergometer (UBE) Duration (Minutes) 6 RPM 75 Therapeutic Exercises Supine Exercises Shoulder flexion Resistance 3# Reps/Minutes 2x 20 1 Supine Exercise Name elbow ext Side bilateral Resistance 3# Reps/Minutes 2 x 15 Sitting Exercises 2 Sitting Exercise Name radial and ulnar deviation Side bilateral Resistance level 1 Reps/Minutes 2 x 15 1 Reps/Minutes HEP Standing Exercises Pulleys IR Equipment Used pulleys Reps/Minutes 3 min Manual Therapy Treatment Soft Tissue Mobilization 1 Body Location L wrist extensors Mobilization Type Cross-Friction Myofascial Release Rolling Sustained Pressure Intensity/Depth Moderate Body Position Supine Joint Mobilizations proximal radioulnar Joint radius Direction AP with motion into ext distal radioulnar Joint distal radioulnar Direction AP Grade II Body Position Supine Comments sustained humeroulnar Joint humeroulnar Direction distraction FM into elbow flex Body Position Supine PT-OP-R Modalities Start: 03/06/18 09:11 Freq: Status: Active Protocol: Document 04/03/18 11:33 (Rec: 04/03/18 11:41 SA [email or web address]) Hot Pack/Cold Pack Treatment Cold Pack Location L elbow Treatment Duration (minutes) 8 Ultrasound Therapy Treatment L elbow Treatment Duration (minutes) 8 Patient Position Supine Coupling Medium Ultrasound Gel Applicator Size (cm2) 2 Frequency Setting (mHz) 1 Mode Setting Continuous Duty Cycle 50% Intensity Setting (w/cm2) 1.5 Comments ant forearm laterally with elbow in ext and supination PT-OP-T Assessment and Plan Start: 03/06/18 09:11 Freq: Status: Active Protocol: Document 04/03/18 11:33 (Rec: 04/03/18 11:41 [email or web address]) Physical Therapy Assessment Assessment Summary Assessment Pt denies pain, doing well with HEP, continued lack of AROM with elbow EXT and supination. Physical Therapy Plan Next Visit Focus/Plan Next Note Type Treatment Note Next Visit Plan Continue with joint mobilizations and soft tissue, progress UE strengthening as able.
--- NOTE | 2018-04-06 11:41 | PT.OTN ---
Current Diagnoses Nondisplaced fracture of head of left radius, initial encounter for closed fracture (04/06/18) Physical Therapy Treatment Note PT-OP-A Visit Information Start: 03/06/18 09:11 Freq: Status: Active Protocol: Document 04/06/18 11:34 SA (Rec: 04/06/18 11:41 SA [email or web address]) Out-Patient Physical Therapy Visit Information Visit Information Visit Type Treatment Note Visit Start Time 10:30 Visit Stop Time 11:18 Total Visit Minutes 48 Visit Number 01/15 Number of BRIDGE OPERATOR SLIP Visits 4 PT-OP-B Current Condition Start: 03/06/18 09:11 Freq: Status: Active Protocol: Document 03/06/18 16:23 ML (Rec: 03/06/18 17:04 ML [email or web address]) Current Condition History of Current Condition Onset Date 01/24/18 Current Complaints L radial head fx and elbow contracture History of Current Condition Pt fell on her elbow on and reports that her immediate x-ray indicated fracture of her radial head. Pt also states that her follow up x-ray a few weeks later indicated that a piece of the bone was chipped and is floating and that she was closed to healed. Doctor estimated a couple more weeks for full healing. The pt iced frequently wore a sling for 4 weeks after fracture which she believes has contributed to her current loss of motion. The pt states that she has pain when pressure is applied to her elbow by leaning on them or rolling onto the elbow in sleeping which wakes her. The pt denies any numbness or tingling, and has no pain when using her elbow to do functional activities unless it involves contact with her elbow. She mentions that she doesn't feel as strong in general, and notices that she is unable to lift her wts when she does her yoga exercises that involve hand wts. Her biggest complaints involve not being able to dance the [place] or reaching her cupboards in the kitchen which are both limited by her lack of ROM. 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 PT-OP-C Subjective Start: 03/06/18 09:11 Freq: Status: Active Protocol: Document 04/06/18 11:34 SA (Rec: 04/06/18 11:41 SA [email or web address]) OP-PT Subjective Patient Comments Patient Comments Feeling a little less restricted every time, no real pain to note. Patient Reported Progress Improving PT-OP-F Manual Assessment Start: 03/06/18 09:11 Freq: Status: Active Protocol: Document 03/06/18 16:23 ML (Rec: 03/06/18 17:04 ML [email or web address]) Manual Assessments Soft Tissue Assessment Soft Tissue Mobility Assessment tight wrist extensors on L PT-OP-K Range of Motion Start: 03/06/18 09:11 Freq: Status: Active Protocol: Document 03/06/18 16:23 ML (Rec: 03/06/18 17:04 ML [email or web address]) Shoulder Goniometric Range of Motion Shoulder Measured in Degrees L Testing Position Sitting Flexion 145 R Testing Position Sitting Flexion 161 Elbow/Forearm Range of Motion Elbow/Forearm Measured in Degrees L ROM Testing Position Sitting Elbow Flexion (degrees) 141 Elbow Extension (degrees) 30 Pronation (degrees) 94 Supination (degrees) 115 R ROM Testing Position Sitting Elbow Flexion (degrees) 156 Elbow Hyperextension 4 PT-OP-M Strength Start: 03/06/18 09:11 Freq: Status: Active Protocol: Document 03/06/18 16:23 ML (Rec: 03/06/18 17:04 ML [email or web address]) Shoulder Strength Shoulder Manual Muscle Testing L Flexion 4- Good- Extension 4 Good Abduction (C5) 4- Good- External Rotation 4 Good Internal Rotation 4 Good R Flexion 4- Good- Extension 4+ Good+ Abduction (C5) 4 Good External Rotation 4 Good Internal Rotation 4 Good Elbow/Forearm Strength Elbow and Forearm Manual Muscle Testing L Flexion (C6) 4+ Good+ Extension (C7) 4 Good Pronation 5 Normal Supination 5 Normal R Flexion (C6) 5 Normal Extension (C7) 4+ Good+ Wrist Strength Wrist Manual Muscle Testing L Flexion (C7) 4+ Good+ Extension (C6) 4 Good Ulnar Deviation 4 Good Radial Deviation 4 Good Comments some pain w/wrist flex R Flexion (C7) 4+ Good+ Extension (C6) 4+ Good+ Ulnar Deviation 4 Good Radial Deviation 4 Good Hand Voice Instructor/Pinch Strength Hand Strength Right Comments 45/46/45 3 trials Left Comments 46/40/45 3 trials PT-OP-Q Treatments Start: 03/06/18 09:11 Freq: Status: Active Protocol: Document 04/06/18 11:34 SA (Rec: 04/06/18 11:41 SA [email or web address]) Cardio Equipment Upper Body Ergometer (UBE) Duration (Minutes) 6 RPM 75 Therapeutic Exercises Supine Exercises Shoulder flexion Resistance 3# Reps/Minutes 2x 20 1 Supine Exercise Name elbow ext Side bilateral Resistance 3# Reps/Minutes 2 x 15 Sitting Exercises 2 Sitting Exercise Name radial and ulnar deviation Side bilateral Resistance level 1 Reps/Minutes 2 x 15 Manual Therapy Treatment Soft Tissue Mobilization biceps Body Location biceps medially Mobilization Type Rolling Intensity/Depth Moderate Body Position Supine 1 Body Location L wrist extensors Mobilization Type Cross-Friction Myofascial Release Rolling Sustained Pressure Intensity/Depth Moderate Body Position Supine Joint Mobilizations proximal radioulnar Joint radius Direction AP with motion into ext distal radioulnar Joint distal radioulnar Direction AP Grade II Body Position Supine Comments sustained humeroulnar Joint humeroulnar Direction distraction FM into elbow flex Body Position Supine PT-OP-R Modalities Start: 03/06/18 09:11 Freq: Status: Active Protocol: Document 04/06/18 11:34 SA (Rec: 04/06/18 11:41 SA [email or web address]) Hot Pack/Cold Pack Treatment Cold Pack Location L elbow Treatment Duration (minutes) 10 PT-OP-T Assessment and Plan Start: 03/06/18 09:11 Freq: Status: Active Protocol: Document 04/06/18 11:34 SA (Rec: 04/06/18 11:41 SA [email or web address]) Physical Therapy Assessment Progress Towards Goals Progress Towards Goals Progressing Toward Goals Assessment Summary Assessment Pt denies pain and improving supination with elbow EXT. HEP going well. Physical Therapy Plan Next Visit Focus/Plan Next Note Type Treatment Note Next Visit Plan Progress UE strengthening and ROM as per treatment plan.
--- NOTE | 2018-04-10 13:17 | PT.OTN ---
Current Diagnoses Nondisplaced fracture of head of left radius, initial encounter for closed fracture (04/10/18) Physical Therapy Treatment Note PT-OP-A Visit Information Start: 03/06/18 09:11 Freq: Status: Active Protocol: Document 04/10/18 13:09 [facility] (Rec: 04/10/18 13:15 [facility] [email or web address]) Out-Patient Physical Therapy Visit Information Visit Information Visit Type Treatment Note Visit Start Time 10:35 Visit Stop Time 11:25 Total Visit Minutes 50 Visit Number 05/17 PT-OP-B Current Condition Start: 03/06/18 09:11 Freq: Status: Active Protocol: Document 03/06/18 16:23 ML (Rec: 03/06/18 17:04 ML [email or web address]) Current Condition History of Current Condition Onset Date 01/24/18 Current Complaints L radial head fx and elbow contracture History of Current Condition Pt fell on her elbow on and reports that her immediate x-ray indicated fracture of her radial head. Pt also states that her follow up x-ray a few weeks later indicated that a piece of the bone was chipped and is floating and that she was closed to healed. Doctor estimated a couple more weeks for full healing. The pt iced frequently wore a sling for 4 weeks after fracture which she believes has contributed to her current loss of motion. The pt states that she has pain when pressure is applied to her elbow by leaning on them or rolling onto the elbow in sleeping which wakes her. The pt denies any numbness or tingling, and has no pain when using her elbow to do functional activities unless it involves contact with her elbow. She mentions that she doesn't feel as strong in general, and notices that she is unable to lift her wts when she does her yoga exercises that involve hand wts. Her biggest complaints involve not being able to dance the [place] or reaching her cupboards in the kitchen which are both limited by her lack of ROM. 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 PT-OP-C Subjective Start: 03/06/18 09:11 Freq: Status: Active Protocol: Document 04/10/18 13:09 [facility] (Rec: 04/10/18 13:15 [facility] [email or web address]) OP-PT Subjective Patient Comments Patient Comments Pt reports she noticed when she went to itch her back, she couldn't get to top of shouler blade region. PT-OP-F Manual Assessment Start: 03/06/18 09:11 Freq: Status: Active Protocol: Document 03/06/18 16:23 ML (Rec: 03/06/18 17:04 ML [email or web address]) Manual Assessments Soft Tissue Assessment Soft Tissue Mobility Assessment tight wrist extensors on L PT-OP-K Range of Motion Start: 03/06/18 09:11 Freq: Status: Active Protocol: Document 03/06/18 16:23 ML (Rec: 03/06/18 17:04 ML [email or web address]) Shoulder Goniometric Range of Motion Shoulder Measured in Degrees L Testing Position Sitting Flexion 145 R Testing Position Sitting Flexion 161 Elbow/Forearm Range of Motion Elbow/Forearm Measured in Degrees L ROM Testing Position Sitting Elbow Flexion (degrees) 141 Elbow Extension (degrees) 30 Pronation (degrees) 94 Supination (degrees) 115 R ROM Testing Position Sitting Elbow Flexion (degrees) 156 Elbow Hyperextension 4 PT-OP-M Strength Start: 03/06/18 09:11 Freq: Status: Active Protocol: Document 04/10/18 13:09 [facility] (Rec: 04/10/18 13:17 [facility] [email or web address]) Elbow/Forearm Strength Elbow and Forearm Manual Muscle Testing L Flexion (C6) 4 Good Extension (C7) 5 Normal Pronation 4+ Good+ Supination 5 Normal Comments 4/5 flex in supination; 5/5 in pronation PT-OP-Q Treatments Start: 03/06/18 09:11 Freq: Status: Active Protocol: Document 04/10/18 13:09 [facility] (Rec: 04/10/18 13:15 [facility] [email or web address]) Therapeutic Exercises Sitting Exercises wrist ext Sitting Exercise Name stretch Reps/Minutes 30 sec triceps stretch Sitting Exercise Name tricep stretch Reps/Minutes 30 sec hold Standing Exercises bicep curl Standing Exercise Name bicep curl Equipment Used 3# (5# caused pain after 3) Reps/Minutes 15 pronation Standing Exercise Name pronation Resistance L2 Reps/Minutes 10 Other Exercises child's pose Other Exercise Name child's pose & to side Reps/Minutes 30 sec Manual Therapy Treatment Soft Tissue Mobilization biceps Body Location biceps medially & lat Mobilization Type Rolling Intensity/Depth Moderate Body Position Supine 1 Body Location L wrist extensors Mobilization Type Cross-Friction Myofascial Release Rolling Sustained Pressure Intensity/Depth Moderate Body Position Supine Joint Mobilizations humeroulnar Joint humeroulnar Direction distraction FM into elbow flex Body Position Supine PT-OP-R Modalities Start: 03/06/18 09:11 Freq: Status: Active Protocol: Document 04/10/18 13:09 [facility] (Rec: 04/10/18 13:17 [facility] [email or web address]) Hot Pack/Cold Pack Treatment Cold Pack Location L elbow Treatment Duration (minutes) 10 PT-OP-T Assessment and Plan Start: 03/06/18 09:11 Freq: Status: Active Protocol: Document 04/10/18 13:09 [facility] (Rec: 04/10/18 13:15 [facility] [email or web address]) Physical Therapy Assessment Goals 2 Impairment dec strength Short Term Goal (STG) Pt will be independent with HEP. STG Duration 04/06/18-achieved improving Vitamin Manager Goal (LTG) Pt will improve her elbow and strength to 5/5 without pain in order to do her yoga routine. LTG Duration 05/06/18-improving 1 Impairment dec ROM Nursing Home Goal (LTG) Pt will improve her ROM in order to reach her kitchen cupboards and dance the [employer]. LTG Duration 05/06/18-improving Assessment Summary Assessment ROM and strength is improving and pt had improved flexion with dec pain at end range with humerulnar mobs & biceps STM. Physical Therapy Plan Frequency and Duration Frequency of Treatment 2x/Week Duration of Treatment 2 months Plan of Care Start Date 03/06/18 Plan of Care End Date 05/06/18 Next Visit Focus/Plan Next Note Type Treatment Note Next Visit Plan Progress UE strengthening and ROM as per treatment plan.
--- NOTE | 2018-04-13 16:11 | PT.OTN ---
Current Diagnoses Nondisplaced fracture of head of left radius, initial encounter for closed fracture (04/13/18) Physical Therapy Treatment Note PT-OP-A Visit Information Start: 03/06/18 09:11 Freq: Status: Active Protocol: Document 04/13/18 16:02 [facility] (Rec: 04/13/18 16:11 [facility] [email or web address]) Out-Patient Physical Therapy Visit Information Visit Information Visit Type Treatment Note Visit Start Time 10:35 Visit Stop Time 11:20 Total Visit Minutes 45 Visit Number 06/17 PT-OP-B Current Condition Start: 03/06/18 09:11 Freq: Status: Active Protocol: Document 03/06/18 16:23 ML (Rec: 03/06/18 17:04 ML [email or web address]) Current Condition History of Current Condition Onset Date 01/24/18 Current Complaints L radial head fx and elbow contracture History of Current Condition Pt fell on her elbow on and reports that her immediate x-ray indicated fracture of her radial head. Pt also states that her follow up x-ray a few weeks later indicated that a piece of the bone was chipped and is floating and that she was closed to healed. Doctor estimated a couple more weeks for full healing. The pt iced frequently wore a sling for 4 weeks after fracture which she believes has contributed to her current loss of motion. The pt states that she has pain when pressure is applied to her elbow by leaning on them or rolling onto the elbow in sleeping which wakes her. The pt denies any numbness or tingling, and has no pain when using her elbow to do functional activities unless it involves contact with her elbow. She mentions that she doesn't feel as strong in general, and notices that she is unable to lift her wts when she does her yoga exercises that involve hand wts. Her biggest complaints involve not being able to dance the [place] or reaching her cupboards in the kitchen which are both limited by her lack of ROM. 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 PT-OP-C Subjective Start: 03/06/18 09:11 Freq: Status: Active Protocol: Document 04/13/18 16:02 [facility] (Rec: 04/13/18 16:11 [facility] [email or web address]) OP-PT Subjective Patient Comments Patient Comments Pt reports her new exercises went well. PT-OP-F Manual Assessment Start: 03/06/18 09:11 Freq: Status: Active Protocol: Document 03/06/18 16:23 ML (Rec: 03/06/18 17:04 ML [email or web address]) Manual Assessments Soft Tissue Assessment Soft Tissue Mobility Assessment tight wrist extensors on L PT-OP-K Range of Motion Start: 03/06/18 09:11 Freq: Status: Active Protocol: Document 03/06/18 16:23 ML (Rec: 03/06/18 17:04 ML [email or web address]) Shoulder Goniometric Range of Motion Shoulder Measured in Degrees L Testing Position Sitting Flexion 145 R Testing Position Sitting Flexion 161 Elbow/Forearm Range of Motion Elbow/Forearm Measured in Degrees L ROM Testing Position Sitting Elbow Flexion (degrees) 141 Elbow Extension (degrees) 30 Pronation (degrees) 94 Supination (degrees) 115 R ROM Testing Position Sitting Elbow Flexion (degrees) 156 Elbow Hyperextension 4 PT-OP-M Strength Start: 03/06/18 09:11 Freq: Status: Active Protocol: Document 04/10/18 13:09 [facility] (Rec: 04/10/18 13:17 [facility] [email or web address]) Elbow/Forearm Strength Elbow and Forearm Manual Muscle Testing L Flexion (C6) 4 Good Extension (C7) 5 Normal Pronation 4+ Good+ Supination 5 Normal Comments 4/5 flex in supination; 5/5 in pronation PT-OP-Q Treatments Start: 03/06/18 09:11 Freq: Status: Active Protocol: Document 04/13/18 16:02 [facility] (Rec: 04/13/18 16:11 [facility] [email or web address]) Therapeutic Exercises Sitting Exercises wrist ext Sitting Exercise Name stretch Reps/Minutes 30 sec triceps stretch Sitting Exercise Name tricep stretch Reps/Minutes 30 sec hold Comments with sustianed hold after Standing Exercises bicep/pec stretch Standing Exercise Name doorway Reps/Minutes 30 sec hold bicep curl Standing Exercise Name bicep curl Equipment Used 4# Reps/Minutes 15 pronation Standing Exercise Name pronation Resistance L2 Reps/Minutes 10 Manual Therapy Treatment Soft Tissue Mobilization biceps Body Location biceps medially & lat Mobilization Type Rolling Intensity/Depth Moderate Body Position Supine 1 Body Location L wrist extensors Mobilization Type Cross-Friction Myofascial Release Rolling Sustained Pressure Intensity/Depth Moderate Body Position Supine Joint Mobilizations distal radioulnar Joint distal radioulnar Direction AP Grade II Body Position Supine Comments sustained humeroulnar Joint humeroulnar Direction distraction FM into elbow flex Body Position Supine PT-OP-R Modalities Start: 03/06/18 09:11 Freq: Status: Active Protocol: Document 04/10/18 13:09 [facility] (Rec: 04/10/18 13:17 [facility] [email or web address]) Hot Pack/Cold Pack Treatment Cold Pack Location L elbow Treatment Duration (minutes) 10 PT-OP-T Assessment and Plan Start: 03/06/18 09:11 Freq: Status: Active Protocol: Document 04/13/18 16:02 [facility] (Rec: 04/13/18 16:11 [facility] [email or web address]) Physical Therapy Assessment Goals 2 Impairment dec strength Short Term Goal (STG) Pt will be independent with HEP. STG Duration 04/06/18-achieved improving [place] Driver Goal (LTG) Pt will improve her elbow and strength to 5/5 without pain in order to do her yoga routine. LTG Duration 05/06/18-improving 1 Impairment dec ROM Custodial Goal (LTG) Pt will improve her ROM in order to reach her kitchen cupboards and dance the [employer]. LTG Duration 05/06/18-improving Assessment Summary Assessment Pt improved flex today to 137 deg and is only lacking about 2 deg into ext. She required min cueing with her new HEP. Physical Therapy Plan Frequency and Duration Frequency of Treatment 2x/Week Duration of Treatment 2 months Plan of Care Start Date 03/06/18 Plan of Care End Date 05/06/18 Next Visit Focus/Plan Next Note Type Treatment Note Next Visit Plan Progress flex & ext ROM with manual mobs
--- NOTE | 2018-04-17 13:20 | PT.OTN ---
Current Diagnoses Nondisplaced fracture of head of left radius, initial encounter for closed fracture (04/17/18) Physical Therapy Treatment Note PT-OP-A Visit Information Start: 03/06/18 09:11 Freq: Status: Active Protocol: Document 04/17/18 10:43 [facility] (Rec: 04/17/18 12:28 [facility] [id number]) Out-Patient Physical Therapy Visit Information Visit Information Visit Type Treatment Note Visit Start Time 10:35 Visit Stop Time 11:15 Total Visit Minutes 40 Visit Number 07/15 PT-OP-B Current Condition Start: 03/06/18 09:11 Freq: Status: Active Protocol: Document 03/06/18 16:23 ML (Rec: 03/06/18 17:04 ML [email or web address]) Current Condition History of Current Condition Onset Date 01/24/18 Current Complaints L radial head fx and elbow contracture History of Current Condition Pt fell on her elbow on and reports that her immediate x-ray indicated fracture of her radial head. Pt also states that her follow up x-ray a few weeks later indicated that a piece of the bone was chipped and is floating and that she was closed to healed. Doctor estimated a couple more weeks for full healing. The pt iced frequently wore a sling for 4 weeks after fracture which she believes has contributed to her current loss of motion. The pt states that she has pain when pressure is applied to her elbow by leaning on them or rolling onto the elbow in sleeping which wakes her. The pt denies any numbness or tingling, and has no pain when using her elbow to do functional activities unless it involves contact with her elbow. She mentions that she doesn't feel as strong in general, and notices that she is unable to lift her wts when she does her yoga exercises that involve hand wts. Her biggest complaints involve not being able to dance the [place] or reaching her cupboards in the kitchen which are both limited by her lack of ROM. 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 PT-OP-C Subjective Start: 03/06/18 09:11 Freq: Status: Active Protocol: Document 04/17/18 10:43 [facility] (Rec: 04/17/18 12:28 [facility] [id number]) OP-PT Subjective Patient Comments Patient Comments Pt can't reach back fully for itching or washing. NOtes she was able to put on a necklace easily today. PT-OP-F Manual Assessment Start: 03/06/18 09:11 Freq: Status: Active Protocol: Document 03/06/18 16:23 ML (Rec: 03/06/18 17:04 ML [email or web address]) Manual Assessments Soft Tissue Assessment Soft Tissue Mobility Assessment tight wrist extensors on L PT-OP-K Range of Motion Start: 03/06/18 09:11 Freq: Status: Active Protocol: Document 03/06/18 16:23 ML (Rec: 03/06/18 17:04 ML [email or web address]) Shoulder Goniometric Range of Motion Shoulder Measured in Degrees L Testing Position Sitting Flexion 145 R Testing Position Sitting Flexion 161 Elbow/Forearm Range of Motion Elbow/Forearm Measured in Degrees L ROM Testing Position Sitting Elbow Flexion (degrees) 141 Elbow Extension (degrees) 30 Pronation (degrees) 94 Supination (degrees) 115 R ROM Testing Position Sitting Elbow Flexion (degrees) 156 Elbow Hyperextension 4 PT-OP-M Strength Start: 03/06/18 09:11 Freq: Status: Active Protocol: Document 04/10/18 13:09 [facility] (Rec: 04/10/18 13:17 [facility] [id number]) Elbow/Forearm Strength Elbow and Forearm Manual Muscle Testing L Flexion (C6) 4 Good Extension (C7) 5 Normal Pronation 4+ Good+ Supination 5 Normal Comments 4/5 flex in supination; 5/5 in pronation PT-OP-Q Treatments Start: 03/06/18 09:11 Freq: Status: Active Protocol: Document 04/17/18 10:43 [facility] (Rec: 04/17/18 12:28 [facility] [id number]) Cardio Equipment Upper Body Ergometer (UBE) Duration (Minutes) 6 RPM 75 Other fwd/back Therapeutic Exercises Standing Exercises tricep stretch Standing Exercise Name Tricep stretch Reps/Minutes 30 sec holds Pulleys IR Standing Exercise Name towel IR Reps/Minutes 30 sec then holding in position after 1 Standing Exercise Name ER towel stretch behind back Manual Therapy Treatment Soft Tissue Mobilization biceps Body Location biceps medially & lat Mobilization Type Rolling Intensity/Depth Moderate Body Position Supine 1 Body Location tricep Mobilization Type Myofascial Release Rolling Intensity/Depth Moderate Body Position Supine Joint Mobilizations humeroulnar Joint humeroulnar Direction distraction FM into elbow flex Body Position Supine PT-OP-R Modalities Start: 03/06/18 09:11 Freq: Status: Active Protocol: Document 04/17/18 10:43 [facility] (Rec: 04/17/18 13:08 [facility] [id number]) Hot Pack/Cold Pack Treatment Cold Pack Location L elbow Treatment Duration (minutes) 10 PT-OP-T Assessment and Plan Start: 03/06/18 09:11 Freq: Status: Active Protocol: Document 04/17/18 10:43 [facility] (Rec: 04/17/18 12:28 [facility] [id number]) Physical Therapy Assessment Goals 2 Impairment dec strength Short Term Goal (STG) Pt will be independent with HEP. STG Duration 04/06/18-achieved improving Transformation Consultant Goal (LTG) Pt will improve her elbow and strength to 5/5 without pain in order to do her yoga routine. LTG Duration 05/06/18-improving 1 Impairment dec ROM Transformation Consultant Goal (LTG) Pt will improve her ROM in order to reach her kitchen cupboards and dance the [place]. LTG Duration 05/06/18-improving Assessment Summary Assessment Improved range with manual stretching. End range motion behind the back is limited by pain in elbow which improves with manual. Physical Therapy Plan Frequency and Duration Frequency of Treatment 2x/Week Duration of Treatment 2 months Plan of Care Start Date 03/06/18 Plan of Care End Date 05/06/18 Next Visit Focus/Plan Next Note Type Treatment Note Next Visit Plan Work end range flex & ext
--- NOTE | 2018-04-20 11:38 | PT.OTN ---
Current Diagnoses Nondisplaced fracture of head of left radius, initial encounter for closed fracture (04/20/18) Physical Therapy Treatment Note PT-OP-A Visit Information Start: 03/06/18 09:11 Freq: Status: Active Protocol: Document 04/20/18 11:32 [facility] (Rec: 04/20/18 11:38 [facility] [id number]) Out-Patient Physical Therapy Visit Information Visit Information Visit Type Treatment Note Visit Start Time 10:35 Visit Stop Time 11:15 Total Visit Minutes 40 Visit Number 08/15 PT-OP-B Current Condition Start: 03/06/18 09:11 Freq: Status: Active Protocol: Document 03/06/18 16:23 ML (Rec: 03/06/18 17:04 ML [email or web address]) Current Condition History of Current Condition Onset Date 01/24/18 Current Complaints L radial head fx and elbow contracture History of Current Condition Pt fell on her elbow on and reports that her immediate x-ray indicated fracture of her radial head. Pt also states that her follow up x-ray a few weeks later indicated that a piece of the bone was chipped and is floating and that she was closed to healed. Doctor estimated a couple more weeks for full healing. The pt iced frequently wore a sling for 4 weeks after fracture which she believes has contributed to her current loss of motion. The pt states that she has pain when pressure is applied to her elbow by leaning on them or rolling onto the elbow in sleeping which wakes her. The pt denies any numbness or tingling, and has no pain when using her elbow to do functional activities unless it involves contact with her elbow. She mentions that she doesn't feel as strong in general, and notices that she is unable to lift her wts when she does her yoga exercises that involve hand wts. Her biggest complaints involve not being able to dance the [place] or reaching her cupboards in the kitchen which are both limited by her lack of ROM. 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 PT-OP-C Subjective Start: 03/06/18 09:11 Freq: Status: Active Protocol: Document 04/20/18 11:32 [facility] (Rec: 04/20/18 11:38 [facility] [id number]) OP-PT Subjective Patient Comments Patient Comments Reports she is overall doing well. DId part of execise video PT-OP-F Manual Assessment Start: 03/06/18 09:11 Freq: Status: Active Protocol: Document 03/06/18 16:23 ML (Rec: 03/06/18 17:04 ML [email or web address]) Manual Assessments Soft Tissue Assessment Soft Tissue Mobility Assessment tight wrist extensors on L PT-OP-K Range of Motion Start: 03/06/18 09:11 Freq: Status: Active Protocol: Document 03/06/18 16:23 ML (Rec: 03/06/18 17:04 ML [email or web address]) Shoulder Goniometric Range of Motion Shoulder Measured in Degrees L Testing Position Sitting Flexion 145 R Testing Position Sitting Flexion 161 Elbow/Forearm Range of Motion Elbow/Forearm Measured in Degrees L ROM Testing Position Sitting Elbow Flexion (degrees) 141 Elbow Extension (degrees) 30 Pronation (degrees) 94 Supination (degrees) 115 R ROM Testing Position Sitting Elbow Flexion (degrees) 156 Elbow Hyperextension 4 PT-OP-M Strength Start: 03/06/18 09:11 Freq: Status: Active Protocol: Document 04/10/18 13:09 [facility] (Rec: 04/10/18 13:17 [facility] [id number]) Elbow/Forearm Strength Elbow and Forearm Manual Muscle Testing L Flexion (C6) 4 Good Extension (C7) 5 Normal Pronation 4+ Good+ Supination 5 Normal Comments 4/5 flex in supination; 5/5 in pronation PT-OP-Q Treatments Start: 03/06/18 09:11 Freq: Status: Active Protocol: Document 04/20/18 11:32 [facility] (Rec: 04/20/18 11:35 [facility] [id number]) Therapeutic Exercises Standing Exercises bicep/pec stretch Standing Exercise Name doorway Reps/Minutes 30 sec hold Comments in pronation 1 Standing Exercise Name Elbow ext stretch behind back Manual Therapy Treatment Soft Tissue Mobilization biceps Body Location biceps medially & lat Mobilization Type Rolling Intensity/Depth Moderate Comments with IR motion behind back & with ext position 1 Body Location L wrist extensors Mobilization Type Cross-Friction Myofascial Release Rolling Sustained Pressure Intensity/Depth Moderate Body Position Supine Joint Mobilizations GH Joint GH Direction post glide & translation FM Comments w/elbow in end range flex Self-Care/Home Management Treatment Activities Self-Care/Home Management Activities Working on fluidity of dancing motion & discussing mm tightness. Review of HEP & importance of cont PT-OP-R Modalities Start: 03/06/18 09:11 Freq: Status: Active Protocol: Document 04/17/18 10:43 [facility] (Rec: 04/17/18 13:08 [facility] [id number]) Hot Pack/Cold Pack Treatment Cold Pack Location L elbow Treatment Duration (minutes) 10 PT-OP-T Assessment and Plan Start: 03/06/18 09:11 Freq: Status: Active Protocol: Document 04/20/18 11:32 [facility] (Rec: 04/20/18 11:38 [facility] [id number]) Physical Therapy Assessment Goals 2 Impairment dec strength Short Term Goal (STG) Pt will be independent with HEP. STG Duration 04/06/18-achieved improving Director Of Archives Goal (LTG) Pt will improve her elbow and strength to 5/5 without pain in order to do her yoga routine. LTG Duration 05/06/18-improving 1 Impairment dec ROM Correction Goal (LTG) Pt will improve her ROM in order to reach her kitchen cupboards and dance the [place]. LTG Duration 05/06/18-improving Assessment Summary Assessment Improved ext range to 0 deg after treatment. Improved fluidity of dancing after mobilizations. Improved elbow flex in IR position behind back after GH mobs & STM to bicep. Physical Therapy Plan Frequency and Duration Frequency of Treatment 2x/Week Duration of Treatment 2 months Plan of Care Start Date 03/06/18 Plan of Care End Date 05/06/18 Next Visit Focus/Plan Next Note Type Treatment Note Next Visit Plan Follow up in a week re: HEP to cont & any deficits
--- NOTE | 2018-04-27 16:27 | PT.OTN ---
Current Diagnoses Nondisplaced fracture of head of left radius, initial encounter for closed fracture (04/27/18) Physical Therapy Treatment Note PT-OP-A Visit Information Start: 03/06/18 09:11 Freq: Status: Active Protocol: Document 04/27/18 11:15 [facility] (Rec: 04/27/18 13:01 [facility] [id number]) Out-Patient Physical Therapy Visit Information Visit Information Visit Type Discharge Summary Visit Start Time 10:35 Visit Stop Time 11:20 Total Visit Minutes 45 Visit Number 14 PT-OP-B Current Condition Start: 03/06/18 09:11 Freq: Status: Active Protocol: Document 03/06/18 16:23 ML (Rec: 03/06/18 17:04 ML [email or web address]) Current Condition History of Current Condition Onset Date 01/24/18 Current Complaints L radial head fx and elbow contracture History of Current Condition Pt fell on her elbow on and reports that her immediate x-ray indicated fracture of her radial head. Pt also states that her follow up x-ray a few weeks later indicated that a piece of the bone was chipped and is floating and that she was closed to healed. Doctor estimated a couple more weeks for full healing. The pt iced frequently wore a sling for 4 weeks after fracture which she believes has contributed to her current loss of motion. The pt states that she has pain when pressure is applied to her elbow by leaning on them or rolling onto the elbow in sleeping which wakes her. The pt denies any numbness or tingling, and has no pain when using her elbow to do functional activities unless it involves contact with her elbow. She mentions that she doesn't feel as strong in general, and notices that she is unable to lift her wts when she does her yoga exercises that involve hand wts. Her biggest complaints involve not being able to dance the [place] or reaching her cupboards in the kitchen which are both limited by her lack of ROM. 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 PT-OP-C Subjective Start: 03/06/18 09:11 Freq: Status: Active Protocol: Document 04/27/18 11:15 [facility] (Rec: 04/27/18 13:01 [facility] [id number]) OP-PT Subjective Patient Comments Patient Comments Pt reports no major difficulties with exercise program except transition between cobra and maureen pose PT-OP-F Manual Assessment Start: 03/06/18 09:11 Freq: Status: Active Protocol: Document 03/06/18 16:23 ML (Rec: 03/06/18 17:04 ML [email or web address]) Manual Assessments Soft Tissue Assessment Soft Tissue Mobility Assessment tight wrist extensors on L PT-OP-K Range of Motion Start: 03/06/18 09:11 Freq: Status: Active Protocol: Document 04/27/18 11:15 [facility] (Rec: 04/27/18 13:01 [facility] [id number]) Elbow/Forearm Range of Motion Elbow/Forearm Measured in Degrees L Elbow Flexion (degrees) 142 Elbow Extension (degrees) 10 PT-OP-M Strength Start: 03/06/18 09:11 Freq: Status: Active Protocol: Document 04/27/18 11:15 [facility] (Rec: 04/27/18 16:27 [facility] [id number]) Shoulder Strength Shoulder Manual Muscle Testing L Flexion 5 Normal Extension 5 Normal Abduction (C5) 4+ Good+ External Rotation 5 Normal Internal Rotation 5 Normal Elbow/Forearm Strength Elbow and Forearm Manual Muscle Testing L Flexion (C6) 5 Normal Extension (C7) 5 Normal Pronation 4+ Good+ Supination 5 Normal Wrist Strength Wrist Manual Muscle Testing L Flexion (C7) 5 Normal Extension (C6) 5 Normal Ulnar Deviation 5 Normal Radial Deviation 5 Normal PT-OP-Q Treatments Start: 03/06/18 09:11 Freq: Status: Active Protocol: Document 04/27/18 11:15 [facility] (Rec: 04/27/18 16:27 [facility] [id number]) Therapeutic Exercises Sitting Exercises wrist flex Sitting Exercise Name stretch Reps/Minutes 30 sec wrist ext Sitting Exercise Name stretch Reps/Minutes 30 sec Other Exercises child's pose Other Exercise Name child's pose & to side Reps/Minutes 30 sec Manual Therapy Treatment Soft Tissue Mobilization biceps Body Location biceps medially & lat Mobilization Type Rolling Intensity/Depth Moderate Comments with IR motion behind back & with ext position 1 Body Location L wrist extensors Mobilization Type Cross-Friction Myofascial Release Rolling Sustained Pressure Intensity/Depth Moderate Body Position Supine Joint Mobilizations proximal radioulnar Joint proximal radioulnar Direction AP FM humeroulnar Joint humeroulnar Direction distraction FM into elbow flex Body Position Supine PT-OP-R Modalities Start: 03/06/18 09:11 Freq: Status: Active Protocol: Document 04/17/18 10:43 [facility] (Rec: 04/17/18 13:08 [facility] [id number]) Hot Pack/Cold Pack Treatment Cold Pack Location L elbow Treatment Duration (minutes) 10 PT-OP-T Assessment and Plan Start: 03/06/18 09:11 Freq: Status: Active Protocol: Document 04/27/18 11:15 [facility] (Rec: 04/27/18 16:27 [facility] [id number]) Physical Therapy Assessment Goals 2 Impairment dec strength Short Term Goal (STG) Pt will be independent with HEP. STG Duration 04/06/18-achieved improving Still Operator Helper Goal (LTG) Pt will improve her elbow and strength to 5/5 without pain in order to do her yoga routine. LTG Duration achieved 1 Impairment dec ROM Fci Goal (LTG) Pt will improve her ROM in order to reach her kitchen cupboards and dance the [place]. LTG Duration achieved Assessment Summary Assessment Pt has met goals and has improved ROM with 0 deg ext after mobilizations & STM. Pt educated in stretches to maintain motion. Physical Therapy Plan Discharge Physical Therapy Discharge Reasons Goals Met
== END 2018-05-15 11:44 ==
LOC: PHYS 10:30
PROVIDERS: PCP Physician Assistant Medical; Visit Provider Nurse Practitioner
DX: S52.125A Nondisplaced fracture of head of left radius, initial encounter for closed fracture (principal)
CPT/HCPCS: 97035; 97110; 97140; 97161; 97535

== ENCOUNTER → 2018-08-23 13:02 | Outpatient (CLI) | payer MEDICARE, OTHER, SELFPAY | PROVIDERS: PCP Physician Assistant Medical; Visit Provider Physician Assistant Medical | DX: M85.851 Other specified disorders of bone density and structure, right thigh (principal); Z78.0 Asymptomatic menopausal state; Z90.722 Acquired absence of ovaries, bilateral | CPT/HCPCS: 77080 ==

== ENCOUNTER 2019-01-26 06:50 | Emergency (ER) | payer MEDICARE, OTHER, SELFPAY ==
[2019-01-26 07:11] VITALS: BP 127/78; PULSE 71; RESP 16; TEMP 36.7; O2SAT 100; BMI 23.8
--- NOTE | 2019-01-26 07:16 | ED_ITS ---
HPI - URI/Sore Throat General Chief Complaint: Upper Respiratory Symptoms Stated Complaint: sore throat x7days Time Seen by Provider: 01/26/19 07:00 Source: patient Mode of arrival: Ambulatory Limitations: no limitations History of Present Illness HPI Narrative: 68-year-old female nonsmoker with benign medical history presents with 6-7 days of runny nose, sore throat, dry cough. She denies any fever or body aches. She denies any productive sputum. She denies blurred vision trouble swallowing or difficulty with speech. She is otherwise well and free of complaint. She denies exposure to ill persons. MD Complaint: cough, sore throat, rhinorrhea and nasal congestion Onset (ago): day(s) Duration: constant Severity: moderate Relieving factors: nothing Exacerbating factors: nothing Description of mucous: clear Able to tolerate fluids by mouth: Yes Treatments prior to arrival: acetaminophen, ibuprofen and cold medicine Review of Systems Constitutional Constitutional: Denies chills, Denies fatigue, Denies fever(s), Denies frequent falls, Denies lethargy and Denies weakness Eyes Eyes: Denies change in vision, Denies eye discharge, Denies irritation and Denies loss of vision ENT Ears, Nose, Mouth, and Throat: Denies change in voice, Denies dizziness, Reports nasal congestion, Denies neck pain, Reports sore throat and Denies throat swelling Cardiovascular Cardiovascular: Denies chest pain, Denies irregular heart rhythm, Denies lightheadedness, Denies palpitations, Denies dyspnea, Denies dyspnea on exertion and Denies orthopnea Respiratory Respiratory: Reports cough, Denies dyspnea, Denies dyspnea on exertion and Denies wheezing Gastrointestinal Gastrointestinal: Denies abdominal pain, Denies change in bowel habits, Denies diarrhea, Denies nausea and Denies vomiting Genitourinary Genitourinary: Denies hematuria, Denies flank pain, Denies urinary incontinence and Denies urinary urgency Musculoskeletal Musculoskeletal: Denies back pain, Denies muscle weakness, Denies neck pain, Denies numbness and Denies tingling Integumentary/Breasts Skin/Breast: Denies pruritus, Denies erythema, Denies rash and Denies wounds Neurologic Neurologic: Denies behavioral changes, Denies confusion, Denies dizziness, Denies frequent falls, Denies loss of vision, Denies numbness, Denies tingling and Denies weakness Psychiatric Psychiatric: Denies anxiety, Denies behavioral changes, Denies confusion, Denies depression, Denies homicidal ideation and Denies suicidal ideation Endocrine Endocrine: Denies fatigue, Denies flushing and Denies palpitations Hematologic/Lymphatic Hematologic/Lymphatic: Denies easy bruising Allergic/Immunologic Allergic/Immunologic: Denies urticaria, Denies throat swelling and Denies wheezing [facility] Medical History (Updated 01/26/19 @ 07:57 by João Haynes DO) Patient denies medical problems (Acute) Surgical History (Updated 01/26/19 @ 07:43 by João Haynes DO) Hx of tonsillectomy (Acute) Social History Smoking Status: Never smoker Social History Smoking Status: Never smoker Exam Narrative Exam Narrative: GEN: AOx3 and in mild distress EYES: Pupils are equal, round, and reactive to light and accommodation. Extraoccular muscles are intact bilaterally. There is no subconjunctival hemorrhage or exudate. ENT: Clear postnasal drip with minimal pharyngeal erythema. No cervical lymphadenopathy. Tympanic membranes are clear bilaterally with normal landmarks. CHEST: Lungs are clear to auscultation bilaterally and free of wheezes, rales, or rhonchi. Heart rate is regular rhythm, there are no murmurs, clicks, rubs, or gallops. There is no chest wall tenderness. ABD: Abdomen is soft and nontender. There is no guarding or rebound. Bowel sounds are normal in all 4 quadrants. There is no mass or organomegaly. EXT: Full painless ROM of all extremities with no loss of sensation or strength. SKIN: Warm, pink, and dry. No erythema or rash Initial Vital Signs Initial Vital Signs: Vital Signs Temperature 98.1 F 01/26/19 07:11 Pulse Rate 71 01/26/19 07:11 Respiratory Rate 16 01/26/19 07:11 Blood Pressure 127/78 01/26/19 07:11 Pulse Oximetry 100 01/26/19 07:11 Course Course Course Narrative: patient had planned to go visit [facility]. I encouraged her to hold off until symptoms clear, with discussion of how immense the workup is of a febrile . She understands. Also, she has been given return precautions and had questions answered to her apparent satisfaction Orders Ordered: ED Orders 01/26/19 07:30 FLU A and B [Influenza A and B by PCR Rapid] Stat Vital Signs Vital signs: Vital Signs - 8 hr 01/26/19 07:11 Temperature 98.1 F Pulse Rate 71 Respiratory Rate 16 Blood Pressure 127/78 Pulse Oximetry 100 MDM - URI/Sore Throat Lab Data Labs: Lab Results 01/26/19 Range/Units 07:30 Influenza A & B (PCR) Negative (Negative) Point of Care Testing Rapid Strep A Negative Discharge Plan Departure Patient Disposition: Home Clinical Impression: Upper respiratory infection Qualifiers: URI type: unspecified viral URI Qualified Code(s): J06.9 - Acute upper respiratory infection, unspecified Instructions: DI for Viral Upper Respiratory Infection -- Adult Activity Restrictions/Additional Instructions: *You have been diagnosed with [acute viral upper respiratory infection] *What to do: *Take medications as directed including [id number] cough and cold medications. Antihistamines will help dry the secretions that are causing many of your symptoms. Tylenol or Motrin for aches and pains *Follow up with your primary care provider in 2-3 days, call for an appointment. Let them know you were seen in the Emergency Department and that we ask that you be seen in follow up *Return to ER if you should have any new, worsening or concerning symptoms Referrals: Renu Pringle PA-C [Primary Care Provider] -
[2019-01-26 07:56] LABS: Influenza A and B by PCR Rapid Negative (Negative)
== END 2019-01-26 08:06 | disposition home or self-care (01) ==
PROVIDERS: Emergency Provider Emergency Medicine; PCP Physician Assistant Medical
DX: J06.9 Acute upper respiratory infection, unspecified (principal)
CPT/HCPCS: 87400; 87502; 87880; 99282; 99283

== ENCOUNTER 2019-02-24 13:41 | Emergency (ER) | payer MEDICARE, OTHER, SELFPAY ==
[2019-02-24 13:51] VITALS: BP 124/78; PULSE 82; RESP 16; TEMP 36.9; O2SAT 97; BMI 23.8
--- NOTE | 2019-02-24 13:55 | DI.RAD.S_ITS ---
PROCEDURE: XR FINGER LT MIN 2V INDICATIONS: closed finger in door TECHNIQUE: AP hand, 2 views of the ring finger(s) acquired. COMPARISON: None. FINDINGS: Bones: Dorsal plate avulsion fracture of the fourth distal phalanx. The fracture appears involve less than 50% of the articular surface. The fracture fragment is avulsed approximately 1 mm proximally. Joint space narrowing and marginal osteophytes of the triscaphe and first carpometacarpal joint. Soft tissues: No suspicious soft tissue calcifications. IMPRESSION: Minimally displaced dorsal plate avulsion fracture of the fourth distal phalanx. Dictated by: Trey Jonas M.D. on 02/24/2019 at 13:31 Approved by: Trey Jonas M.D. on 02/24/2019 at 13:34
--- NOTE | 2019-02-24 15:44 | ED.UPPEXIN ---
HPI - Extremity Injury (Upper) <CAMI Cornell - Last Filed: 02/24/19 15:50> General Chief Complaint: Extremity Injury, Upper Stated Complaint: broke wedding finger? got pinched from bin Time Seen by Provider: 02/24/19 14:50 Source: patient Mode of arrival: Ambulatory Limitations: no limitations History of Present Illness HPI narrative: The patient is a 68-year-old female nonsmoker who presents with a chief complaint of a finger injury. She states that her left ring finger was pinched in a door, went closed by the wind. She states she can move it fully. She is concerned as she has get our practice coming up. She has not taken anything at home. She denies any lacerations or bleeding. She denies any previous injuries to the finger. She has removed her rings from that finger. She does complain of bruising. Review of Systems <CAMI Cornell - Last Filed: 02/24/19 15:50> Review of Systems Narrative: GENERAL: Denies chills, fatigue, malaise, fever, sweats. HEENT: Denies sinus pain, ear pain, sore throat, difficulty swallowing, dizziness. RESPIRATORY: Denies dyspnea, cough, wheezing, hemoptysis, sputum. CARDIOVASCULAR: Denies chest pain, palpitations, orthopnea, edema, GASTROINTESTINAL: Denies nausea, vomiting, abdominal pain, diarrhea, constipation, melena. : Denies dysuria, frequency, incontinence, hematuria, urinary retention. MUSCULOSKELETAL: See HPI SKIN: see HPI NEUROLOGIC: Denies weakness, headache, numbness, change in speech, confusion, seizures, incoordination. PSYCHIATRIC: No concerning psychosocial issues. 12 point review of systems is negative except for those stated above Patient History <CAMI Cornell - Last Filed: 02/24/19 15:50> Medical History (Updated 02/24/19 @ 15:10 by CAMI Cornell) Patient denies medical problems (Acute) Surgical History (Updated 01/26/19 @ 07:43 by João Haynes DO) Hx of tonsillectomy (Acute) Social History Smoking Status: Never smoker Social History Smoking Status: Never smoker alcohol intake frequency: 0-2 drinks per day Substance Use Type: does not use Exam <CAMI Cornell - Last Filed: 02/24/19 15:50> Narrative Exam Narrative: GENERAL: This is a well-nourished, well-developed patient, in no acute distress HEAD: Atraumatic. Normocephalic. No temporal or scalp tenderness. EYES: Pupils equal round and reactive. Extraocular motions intact. No scleral icterus. No injection or drainage. ENT: Nose without bleeding, purulent drainage or septal hematoma. Throat without erythema, tonsillar hypertrophy or exudate. Uvula midline. Airway patent. NECK: Trachea midline. No JVD or lymphadenopathy. Supple, nontender, no meningeal signs. CARDIOVASCULAR: Regular rate and rhythm RESPIRATORY: No cough. No increased respiratory effort. No accessory muscle use. EXTREMITIES: Full range of motion noted left ring finger. Capillary refill less than 2 seconds. Ecchymosis noted over distal phalanx of left ring finger. Positive radial pulse left hand. No bleeding or laceration noted left ring finger BACK: Nontender without deformity or crepitance. No flank tenderness. NEURO: AOx3. SKIN: See extremity exam Initial Vital Signs Initial Vital Signs: Vital Signs Temperature 98.4 F 02/24/19 13:51 Pulse Rate 82 02/24/19 13:51 Respiratory Rate 16 02/24/19 13:51 Blood Pressure 124/78 02/24/19 13:51 Pulse Oximetry 97 02/24/19 13:51 <Griselda San MD - Last Filed: 02/24/19 19:24> Initial Vital Signs Initial Vital Signs: Vital Signs Temperature 98.4 F 02/24/19 13:51 Pulse Rate 82 02/24/19 13:51 Respiratory Rate 16 02/24/19 13:51 Blood Pressure 124/78 02/24/19 13:51 Pulse Oximetry 97 02/24/19 13:51 Procedures <CAMI Cornell - Last Filed: 02/24/19 15:50> Orthopedic Splinting/Casting Injury #1: Side: left Upper Extremity Injury Location: finger Upper Extremity Immobilizer: finger (other) Post splinting neuro exam: intact Post splinting vascular exam: intact Placed by: Nursing Course <CAMI Cornell - Last Filed: 02/24/19 15:50> Orders Ordered: ED Orders 02/24/19 13:55 XR finger LT min 2V Stat Vital Signs Vital signs: Vital Signs - 8 hr 02/24/19 13:51 Temperature 98.4 F Pulse Rate 82 Respiratory Rate 16 Blood Pressure 124/78 Pulse Oximetry 97 <Griselda San MD - Last Filed: 02/24/19 19:24> Orders Ordered: ED Orders 02/24/19 13:55 XR finger LT min 2V Stat Vital Signs Vital signs: Vital Signs - 8 hr 02/24/19 13:51 Temperature 98.4 F Pulse Rate 82 Respiratory Rate 16 Blood Pressure 124/78 Pulse Oximetry 97 MDM - Extremity Injury (Upper) <CAMI Cornell - Last Filed: 02/24/19 15:50> Imaging Data Finger x-ray: Radiologist's impression: [address] [address] XRay Report Signed Patient: Ginger Louise JMR#: [id number] : 8Acct:[id number] Age/Sex: 68 / FDate of Service: 02/24/19 Loc: ED Accession Number: [id number] Procedure: XR finger LT min 2V Ordering Provider: Griselda San MD PROCEDURE: XR FINGER LT MIN 2V INDICATIONS: closed finger in door TECHNIQUE: AP hand, 2 views of the ring finger(s) acquired. COMPARISON: None. FINDINGS: Bones: Dorsal plate avulsion fracture of the fourth distal phalanx. The fracture appears involve less than 50% of the articular surface. The fracture fragment is avulsed approximately 1 mm proximally. Joint space narrowing and marginal osteophytes of the triscaphe and first carpometacarpal joint. Soft tissues: No suspicious soft tissue calcifications. IMPRESSION: Minimally displaced dorsal plate avulsion fracture of the fourth distal phalanx. Dictated by: Trey Jonas M.D. on 02/24/2019 at 13:31 Approved by: Trey Jonas M.D. on 02/24/2019 at 13:34 [facility] Narrative Medical decision making narrative: The patient is a 68-year-old female who presents with a chief complaint of finger pain after her finger was closed in a door. X-rays were taken to evaluate for possible fracture and she was noted to have an avulsion fracture. Her exam indicates a non open fracture. She was placed in a finger splint, neurovascularly intact before and after splint application. I discussed at length rest ice compression elevation as well as [id number] pain medications as needed and able. Encourage PCP follow-up in gave her contact information for [facility]. Patient denies any questions or concerns upon discharge. I discussed come back to the ER for any acute concerns such as decreased circulation to the fingertip. Patient has no questions or concerns upon discharge and states understanding of return precautions as well as follow-up care. Discharge Plan Departure Patient Disposition: Home Clinical Impression: Avulsion fracture of distal phalanx of finger Qualifiers: Encounter type: initial encounter Fracture type: closed Qualified Code(s): S62.639A - Displaced fracture of distal phalanx of unspecified finger, initial encounter for closed fracture Discharge Date/Time: 02/24/19 15:14 Instructions: DI for Finger Fracture, How To Perform RICE (Rest, Ice, Compress, Elevate) Activity Restrictions/Additional Instructions: Unfortunately you have a avulsion fracture of your finger. Please use rest ice compression elevation as well as [id number] medications as needed and able. Please refrain from using rings on your finger until healed. Please come back to the emergency department for any acute concerns such as decreased circulation of the tip of her finger. I have also given you contact information for the health teacher resource as well as [facility] Referrals: [facility] [Provider Group] [facility] [Outside] Renu Pringle PA-C [Primary Care Provider] -
== END 2019-02-24 15:14 | disposition home or self-care (01) ==
PROVIDERS: Emergency Provider Nurse Practitioner Family; PCP Physician Assistant Medical
DX: S62.639A Displaced fracture of distal phalanx of unspecified finger, initial encounter for closed fracture (principal)
CPT/HCPCS: 73140; 99282; 99283

== ENCOUNTER → 2019-05-17 11:13 | Outpatient (CLI) | payer MEDICARE, OTHER, SELFPAY ==
[2019-05-17 13:16] LABS: Alanine Aminotransferase 20 IU/L (<35); Albumin 4.5 g/dL (3.5-5.0); Albumin Globulin Ratio 1.5 (1.0-2.8); Alkaline Phosphatase 65 U/L (38-126); Aspartate Aminotransferase 31 IU/L (14-36); BUN Creatinine Ratio 21.7 (6-22); Bilirubin Total 0.7 mg/dL (0.2-1.3); Blood Urea Nitrogen 13 mg/dL (7-17); Calcium 10.1 mg/dL (8.4-10.2); Carbon Dioxide 26 mmol/L (22-32); Chloride 106 mmol/L (98-107); Cholesterol 215 mg/dL (140-199); Estimated Glomerular Filt Rate > 60.0 mL/min (>60); Glucose 87 mg/dL (80-110); HDL Cholesterol 98 mg/dL (40-60); HEMOLYSIS < 15 (0-50); LDL Cholesterol Calculated 100 mg/dL (<100); Sodium 141 mmol/L (137-145); Total Protein 7.5 g/dL (6.3-8.2); Triglycerides 84 mg/dL (35-150)
== END ==
PROVIDERS: PCP Internal Medicine; Visit Provider Internal Medicine
DX: M85.80 Other specified disorders of bone density and structure, unspecified site (principal); E78.5 Hyperlipidemia, unspecified
CPT/HCPCS: 36415; 80053; 80061

== ENCOUNTER → 2019-12-21 11:57 | Outpatient (CLI) | payer MEDICARE, OTHER, SELFPAY ==
[2019-12-22 20:39] LABS: COVID19 Sendout Not Detected (Not Detect)
== END ==
PROVIDERS: PCP Internal Medicine; Visit Provider Physician Assistant
DX: Z11.59 Encounter for screening for other viral diseases (principal)
CPT/HCPCS: 87635

== ENCOUNTER 2019-12-24 06:19 | Day surgery (SDC) | payer MEDICARE, OTHER, SELFPAY ==
[2019-12-24] MEDS: PROPARACAINE 0.5% OPHTH SOL 2 DROPS EYE-OP (07:08)
[2019-12-24] MEDS: CATARACT EYE COMPOUND (10 DROPS/SYRINGE) 3 DROPS EYE-OP (07:08)
[2019-12-24 07:10] VITALS: BP 126/84; PULSE 66; RESP 18; TEMP 36.3; O2SAT 100; BMI 24.5
--- NOTE | 2019-12-24 08:04 | PM.PREOP ---
Pre-operative Note Interval Note History & Physical reviewed/Exam performed by Physician: Yes Changes to H&P: No
--- NOTE | 2019-12-24 08:04 | PM.OP.1 ---
Operative Date/Time/Diagnoses Pre-op diagnosis: Nuclear cataract right eye Procedure & Clinicians Procedure: Cataract Surgery Same procedure as scheduled: Yes Surgeon: Manish Grajeda Anesthesia Type: MAC +/- and Sedation Operative Notes Procedure in detail: Patient brought to the operating suite. Tetracaine drops placed in the right eye. Marking instrument was used to harris the vertical and horizontal meridians. Patient was prepped and draped in sterile manner. Wire lid speculum was placed in the eye. Betadine drops were placed on the eye. This was irrigated. Lidocaine jelly was placed on the eye. A paracentesis port was created with a side-port blade. 0.1 mL 1% preservative free lidocaine was injected into the anterior chamber. The anterior chamber was deepened with viscoelastic. 2.6 mm keratome was used to create a temporal clear corneal incision. Cystotome and Utrata forceps were used to create continuous tear capsulorrhexis. Balanced salt solution was used to hydro dissect the nucleus. The phacoemulsification handpiece was inserted and the nucleus was removed using the stop and chop technique. The irrigation aspiration handpiece was inserted and the remaining cortex was removed. Anterior chamber was deepened with viscoelastic. An Gould [id number] intraocular lens with a power of 15.0 was injected into the capsular bag. Irrigation aspiration handpiece was inserted and the remaining viscoelastic was removed. The lens was rotated to the 90 degree meridian. Incision was hydrated with balanced salt solution and found to be leak free with pressure with Weck-Lola sponges. 0.1 mL Vigamox injected anterior chamber. 0.3 mL Kenalog 10 mg was injected subconjunctivally. Lid speculum was removed. The patient left the operating room in excellent condition. Complications: none Post-operative Condition: stable Disposition: same day surgery
--- NOTE | 2019-12-24 08:23 | SUR.OPER ---
Supine on eye stretcher, head on extension cradle secured with tape. Arms tucked at sides with blanket. Pillow under knees.
[2019-12-24] MEDS: CHONDROIDTIN/SOD HYALURONATE 1.05 ML SYRINGE INTRAOCULA (08:28)
[2019-12-24] MEDS: LIDOCAINE JELLY 2% 5 ML 1 APPLIC TOP (08:28)
[2019-12-24] MEDS: MOXIFLOXACIN INJ 5 MG/ML VIAL EYE-OP (08:29)
[2019-12-24] MEDS: PHENYLEPHRINE/LIDOCAINE VIAL (OR) 0.2 ML EYE-OP (08:29)
[2019-12-24] MEDS: TETRACAINE 0.5% OPHTH DROPS 4 ML 2 DROPS EYE-OP (08:29)
[2019-12-24] MEDS: TRIAMCINOLONE 50 MG/5 ML VIAL INJ (08:30)
[2019-12-24] MEDS: BALANCED SALT IRRIG SOLN NO.2 500 ML, EPINEPHrine 1 MG IRR (08:30)
[2019-12-24 08:44] VITALS: BP 118/75; PULSE 67; RESP 16; TEMP 36.1; O2SAT 100
== END 2019-12-24 09:06 | disposition home or self-care (01) ==
LOC: OR 06:24
PROVIDERS: PCP Internal Medicine; Referring Provider Internal Medicine; Visit Provider Ophthalmology
PROC: (CPT 66984; principal; 2019-12-24 08:15)
DX: H25.11 Age-related nuclear cataract, right eye (principal); E78.00 Pure hypercholesterolemia, unspecified
CPT/HCPCS: 66984; J0171; J2250; J3301; V2787

== ENCOUNTER → 2020-01-04 14:02 | Outpatient (CLI) | payer MEDICARE, OTHER, SELFPAY ==
[2020-01-06 14:09] LABS: COVID19 Sendout Not Detected (Not Detect)
== END ==
PROVIDERS: PCP Internal Medicine; Visit Provider Physician Assistant
DX: Z11.59 Encounter for screening for other viral diseases (principal)
CPT/HCPCS: 87635

== ENCOUNTER 2020-01-07 06:26 | Day surgery (SDC) | payer MEDICARE, OTHER, SELFPAY ==
[2020-01-07] MEDS: PROPARACAINE 0.5% OPHTH SOL 2 DROPS EYE-OP (07:05)
[2020-01-07 07:09] VITALS: BP 114/73; PULSE 66; RESP 12; TEMP 36.4; O2SAT 99
[2020-01-07 07:11] VITALS: BMI 25.1
[2020-01-07] MEDS: CATARACT EYE COMPOUND (10 DROPS/SYRINGE) 3 DROPS EYE-OP (07:11)
--- NOTE | 2020-01-07 07:34 | P.OP_ITS ---
Operative Date/Time/Diagnoses Pre-op diagnosis: Nuclear Cataract Left eye Post-op diagnosis: same Procedure & Clinicians Same procedure as scheduled: Yes Surgeon: Manish Grajeda Anesthesia Type: MAC +/- and Sedation Operative Notes Procedure in detail: Patient brought to the operating suite. Tetracaine drops placed in the left eye. Marking instrument was used to harris the vertical and horizontal meridians. Patient was prepped and draped in sterile manner. Wire lid speculum was placed in the eye. Marking instrument was used to harris the 75 degree meridian. Betadine drops were placed on the eye. This was irrigated. Lidocaine jelly was placed on the eye. A paracentesis port was created with a side-port blade. 0.1 mL 1% preservative free lidocaine was injected into the anterior chamber. The anterior chamber was deepened with viscoelastic. 2.6 mm keratome was used to create a temporal clear corneal incision. Cystotome and Utrata forceps were used to create continuous tear capsulorrhexis. Balanced salt solution was used to hydro dissect the nucleus. The phacoemulsification handpiece was inserted and the nucleus was removed using the stop and chop te chnique. The irrigation aspiration handpiece was inserted and the remaining cortex was removed. Anterior chamber was deepened with viscoelastic. An Gould [id number] intraocular lens with a power of 13.0 was injected into the capsular bag. Irrigation aspiration handpiece was inserted and the remaining viscoelastic was removed. The lens was rotated to the 75 degree meridian. Incision was hydrated with balanced salt solution and found to be leak free with pressure with Weck- Lola sponges. 0.1 mL Vigamox injected anterior chamber. 0.3 mL Kenalog 10 mg was injected subconjunctivally. Lid speculum was removed. The patient left the operating room in excellent condition. Complications: none Post-operative Condition: stable Disposition: same day surgery
--- NOTE | 2020-01-07 07:34 | PM.PREOP ---
Pre-operative Note Interval Note History & Physical reviewed/Exam performed by Physician: Yes Changes to H&P: No
[2020-01-07] MEDS: PHENYLEPHRINE/LIDOCAINE VIAL (OR) 0.2 ML EYE-OP (07:56)
[2020-01-07] MEDS: MOXIFLOXACIN INJ 5 MG/ML VIAL EYE-OP (07:56)
[2020-01-07] MEDS: TRIAMCINOLONE 50 MG/5 ML VIAL INJ (07:56)
[2020-01-07] MEDS: LIDOCAINE JELLY 2% 5 ML 1 APPLIC TOP (07:56)
[2020-01-07] MEDS: TETRACAINE 0.5% OPHTH DROPS 4 ML 2 DROPS EYE-OP (07:57)
[2020-01-07] MEDS: CHONDROIDTIN/SOD HYALURONATE 1.05 ML SYRINGE INTRAOCULA (07:57)
[2020-01-07] MEDS: BALANCED SALT IRRIG SOLN NO.2 500 ML, EPINEPHrine 1 MG IRR (07:58)
[2020-01-07 08:10] VITALS: BP 119/77; PULSE 64; RESP 16; TEMP 36.4; O2SAT 99
== END 2020-01-07 08:15 | disposition home or self-care (01) ==
PROVIDERS: PCP Internal Medicine; Referring Provider Ophthalmology; Visit Provider Ophthalmology
PROC: (CPT 66984; principal; 2020-01-07 07:45)
DX: H25.12 Age-related nuclear cataract, left eye (principal)
CPT/HCPCS: 66984; J0171; J2250; J3301; V2787

== ENCOUNTER → 2020-02-08 14:38 | Outpatient (CLI) | payer MEDICARE, OTHER, SELFPAY ==
[2020-02-10 07:07] LABS: COVID19 Sendout Not Detected (Not Detected)
== END ==
PROVIDERS: PCP Internal Medicine; Visit Provider Physician Assistant
DX: Z11.59 Encounter for screening for other viral diseases (principal)
CPT/HCPCS: 87635

== ENCOUNTER → 2020-07-13 09:12 | Outpatient (CLI) | payer MEDICARE, OTHER, SELFPAY ==
[2020-07-13 10:02] LABS: Alanine Aminotransferase 21 IU/L (<35); Albumin 4.2 g/dL (3.5-5.0); Albumin Globulin Ratio 1.4 (1.0-2.8); Alkaline Phosphatase 59 U/L (38-126); Aspartate Aminotransferase 30 IU/L (14-36); BUN Creatinine Ratio 20.3 (6-22); Bilirubin Total 0.4 mg/dL (0.2-1.3); Blood Urea Nitrogen 13 mg/dL (7-17); Calcium 9.3 mg/dL (8.4-10.2); Carbon Dioxide 29 mmol/L (22-32); Chloride 106 mmol/L (98-107); Cholesterol 210 mg/dL (140-199); Estimated Glomerular Filt Rate > 60.0 mL/min (>60); Glucose 96 mg/dL (80-110); HDL Cholesterol 90 mg/dL (40-60); HEMOLYSIS < 15 (0-50); LDL Cholesterol Calculated 106 mg/dL (<100); Sodium 138 mmol/L (137-145); Total Protein 7.2 g/dL (6.3-8.2); Triglycerides 70 mg/dL (35-150)
== END ==
PROVIDERS: PCP Internal Medicine; Referring Provider Internal Medicine; Visit Provider Internal Medicine
DX: E78.5 Hyperlipidemia, unspecified (principal); M85.80 Other specified disorders of bone density and structure, unspecified site
CPT/HCPCS: 36415; 80053; 80061

== ENCOUNTER → 2021-02-18 10:41 | Outpatient (CLI) | payer MEDICARE, OTHER, SELFPAY ==
[2021-02-18 12:14] LABS: Alanine Aminotransferase 16 IU/L (<35); Albumin 4.3 g/dL (3.5-5.0); Albumin Globulin Ratio 1.4 (1.0-2.8); Alkaline Phosphatase 67 U/L (38-126); Aspartate Aminotransferase 25 IU/L (14-36); BUN Creatinine Ratio 18.3 (6-22); Bilirubin Total 0.8 mg/dL (0.2-1.3); Blood Urea Nitrogen 11 mg/dL (7-17); Calcium 9.5 mg/dL (8.4-10.2); Carbon Dioxide 28 mmol/L (22-32); Chloride 103 mmol/L (98-107); Cholesterol 207 mg/dL (140-199); Estimated Glomerular Filt Rate > 60.0 mL/min (>60); Glucose 88 mg/dL (80-110); HDL Cholesterol 98 mg/dL (40-60); HEMOLYSIS < 15 (0-50); LDL Cholesterol Calculated 93 mg/dL (<100); Potassium 4.3 mmol/L (3.4-5.1); Sodium 138 mmol/L (137-145); Total Protein 7.3 g/dL (6.3-8.2); Triglycerides 79 mg/dL (35-150)
[2021-02-18 16:34] LABS: Hep C Virus Ab w/Reflex Quant REACTIVE s/c (NEGATIVE)
== END ==
PROVIDERS: PCP Internal Medicine; Referring Provider Internal Medicine; Visit Provider Internal Medicine
DX: E78.5 Hyperlipidemia, unspecified (principal); Z11.59 Encounter for screening for other viral diseases
CPT/HCPCS: 36415; 80053; 80061; 86803; 87522

== ENCOUNTER 2021-08-21 09:15 | Emergency (ER) | payer MEDICARE, OTHER, SELFPAY ==
[2021-08-21 09:47] VITALS: BP 138/81; PULSE 84; RESP 16; TEMP 36.2; O2SAT 94; BMI 23.3
--- NOTE | 2021-08-21 10:14 | ED.GENADULT ---
HPI - General Adult General Chief complaint: Abdominal Pain Stated complaint: constipated Time Seen by Provider: 08/21/21 10:13 Source: patient Mode of arrival: Ambulatory History of Present Illness HPI narrative: 71-year-old woman with a history of mild constipation for which she takes a stool softener daily, hyperlipidemia recently started a new medication for gout and yesterday did have a bowel movement last night took some senna as well as her usual stool softeners and when she woke this morning she was in severe pain with significant obstipation. She tried manual disimpaction as she is unable to pass the large bolus of stool that is currently in the rectal vault. She describes no fever, vomiting, weakness, numbness any skin changes. She describes low abdominal pain and acute rectal pain. Related Data Home Medications Medication Instructions Recorded Confirmed estradiol 10 mcg vaginal tablet 10 mcg VAGINAL QTUTH 12/24/19 03/29/21 simvastatin 20 mg tablet 20 mg PO DAILY 12/24/19 03/29/21 Allergies Allergy/AdvReac Type Severity Reaction Status Date / Time Penicillins Allergy Unknown unknown Verified 03/29/21 15:05 Sulfa (Sulfonamide Allergy Unknown Rash Verified 03/29/21 15:05 Antibiotics) Review of Systems Review of Systems Narrative: Remainder of complete review of systems is otherwise unremarkable except for that included in the HPI. Patient History Medical History Hypercholesteremia Patient denies medical problems Surgical History Hx of tonsillectomy Social History household members: spouse Smoking Status: Never smoker alcohol intake: current Smoking Status: Never smoker alcohol intake frequency: 0-2 drinks per day Substance Use Type: does not use Exam Initial Vital Signs Initial Vital Signs: Vital Signs Temperature 97.1 F L 08/21/21 09:47 Pulse Rate 84 08/21/21 09:47 Respiratory Rate 16 08/21/21 09:47 Blood Pressure 138/81 08/21/21 09:47 Pulse Oximetry 94 08/21/21 09:47 General: Alert appropriate in no acute distress Respiratory: Able to speak in full sentences, no obvious respiratory distress Skin: No obvious rashes, warm and dry Neurologic: Grossly intact no obvious asymmetries or abnormalities Psych: appropriate insight and affect, cooperative Rectal: She has a very large bolus of firm stool in the rectal vault that is unable to pass through the rectum. I was able to advanced that back up the rectal vault a slight amount, reshaped slightly and manually disimpact. We are will to get the softer stool behind the obstipation and she was feeling significantly improved. Course Vital Signs Vital signs: Vital Signs - 8 hr 08/21/21 09:47 Temperature 97.1 F L Pulse Rate 84 Respiratory Rate 16 Blood Pressure 138/81 Pulse Oximetry 94 Medical Decision Making MDM Narrative Medical decision making narrative: Obstipation starting this morning. Very large solid ball in the rectal vault that was able to be manually removed and soft stool followed. No evidence of bowel obstruction or other complications. She is safe for home discharge Discharge Plan Departure Patient Disposition: Home Clinical Impression: Constipation, Obstipation Instructions: DI for Constipation Activity Restrictions/Additional Instructions: Thank you for coming in today. I can certainly understand why that stool was too difficult to pass without assistance. I would recommend doubling your stool softener for the next number of days to prevent this from happening again. I wish you the best Prescriptions: No Action simvastatin 20 mg tablet 20 mg PO DAILY 0RF estradiol 10 mcg tablet 10 mcg VAGINAL QTUTH 0RF Referrals: Laura Pringle MD [Primary Care Provider] -
== END 2021-08-21 10:42 | disposition home or self-care (01) ==
PROVIDERS: Emergency Provider Emergency Medicine; PCP Internal Medicine
DX: K59.00 Constipation, unspecified (principal)
CPT/HCPCS: 99281; 99282

== ENCOUNTER → 2021-12-03 12:53 | Outpatient (CLI) | payer MEDICARE, OTHER, SELFPAY ==
--- NOTE | 2021-12-03 | DI.RAD.S_ITS ---
PROCEDURE: XR CHEST 2V INDICATIONS: COUGH TECHNIQUE: 2 views of the chest were acquired. COMPARISON: None. FINDINGS: Surgical changes and devices: None. Lungs and pleura: Lungs are clear, aside from bibasilar airspace opacities.. No pleural effusions or pneumothorax. Mediastinum: Mediastinal contours are normal. Heart size is normal. Bones and chest wall: No suspicious bony abnormalities. Soft tissues appear unremarkable. IMPRESSION: Bibasilar airspace opacities consistent with atelectasis versus aspiration or pneumonia. Continued radiographic surveillance to resolution is recommended. Dictated by: Tobin Vizcarra [facility] Interpreted: Hiwot Ga MD on 12/03/2021 at 14:31 Transcribed by: SUSAN on 12/03/2021 at 14:32 Approved by: Hiwot Ga M.D. on 12/03/2021 at 15:14
== END ==
PROVIDERS: PCP Internal Medicine; Referring Provider Internal Medicine; Visit Provider Internal Medicine
DX: R05.9 Cough, unspecified (principal)
CPT/HCPCS: 71046

== ENCOUNTER 2021-12-10 14:18 | Outpatient (RCR) | payer MEDICARE, OTHER, SELFPAY ==
--- NOTE | 2021-12-06 14:52 | ST-OP ANOTE ---
Physical, Occupational & Speech Therapy At [facility] Speech Therapy Note Patient did not show for scheduled appointment on 12/06/2021 at 14:30. Pt reported she did not recall the appointment had been moved from 15:30 to 14:30 this morning. Rescheduled evaluation for 12/10/2021 at 14:30 and confirmed this with pt.
--- NOTE | 2021-12-10 15:17 | ST.OPIE ---
Visit Care Team Role Provider Type Laura Pringle MD Attending Provider Physician Family Provider Primary Care Provider Referring Provider Specialty: Internal Medicine Address: [address] [place] [address], [id number] Email: [email or web address] Speech-Language Pathology Initial Evaluation NUT PROCESS HELPER Clinical Swallow Evaluation Start: 12/10/21 14:27 Freq: Status: Active Protocol: Document 12/10/21 14:27 ZS (Rec: 12/10/21 14:30 ZS [id number]) Clinical Swallow Evaluation Session Time Visit Start Time 14:30 Visit Stop Time 15:00 Total Visit Minutes 30 Visit Information Visit Number Initial Evaluation Plan of Care Dates 12/10/2021 - 05/07/2022 Insurance Information Medicare Referral Referring Provider Dr. Laura Pringle Reason for Referral coughing while eating Setting Assessment Location Outpatient Care Visit Type Note Type Initial evaluation Next Note Type Next Note Type Treatment Note Patient Information Identification Type Name History Ginger is a 71-year-old female referred to speech therapy due to concerns about coughing when she is eating. Pt noticed she coughs when she eats, especially during breakfast. She stated coughing often occurs with dry, crumbly foods and she has not noticed it with liquids or soft foods. Ginger reported she coughs about 3x during breakfast and only 1-2x during lunch and dinner. She added she often coughs when she lies down to go to bed. Pt reported she had about a foot of her colon removed about 7 years ago as she was experiencing cramps, food sensitivities, and other digestive issues, which were attributed to her colon being too long. Pt added she and her sister are unable to burp. Subjective Observations Ginger arrived on time and agreed to participate in all assessment activities. Reported by Patient Other Symptoms Coughing Current Diet Regular,Thin liquids Baseline Feeding Method Independent in self-feeding Objective Assessment Mental Status Alert,Responsive,Cooperative Oral Integrity WFL Dentition Within normal limits Lip Function Within normal limits Observation of Lips at Rest Symmetrical Pucker Within normal limits Lip Retraction Within normal limits Alternating Pucker/Lip Retraction Within normal limits Tongue Function Within normal limits Observations of Tongue at Rest Within normal limits Tongue Protrusion Within normal limits, Involuntary movement(s) Tongue Retraction Within normal limits Tongue Lateralization Within normal limits Jaw Function Within normal limits Observations of Jaw at Rest Within normal limits Jaw Opening Within normal limits Jaw Closing Within normal limits Hard/Soft Palate Function Within normal limits Observations of Hard/Soft Palate Within normal limits Comment Completed oral motor exam with pt. She presented with structures symmetrical at rest and in motion with the exception of her uvula, which deviated to the left at rest and in motion, and her lips, which pulled to the right when she spoke. Pt exhibited reduced ROM with tongue depression and minimal/mild involuntary shaking/tremors were noted. Pt added she is missing a tooth on her left side (scheduled to have an implant in the next 1-2 months ) and she often chews on her right side to avoid food getting stuck in the hole. Structure and function appears WFL for the purposes of speech and swallowing. Food and Liquid Trials Position During Assessment Upright (90 degrees),In chair Liquids Trialed Thin Solids Trialed Puree,Mechanical Soft,Regular Administration Type Tea spoon,Cup single sip Oral Impairment Within normal limits Oral Phase Comments The pt exhibited no anterior loss of bolus. A/p propulsion and mastication was timely and efficient. No oral residue observed and pt reported no difficulty chewing. Pharyngeal Impairment Within normal limits Pharyngeal Phase Comments Audible swallow observed across all trials. No overt signs or symptoms of aspiration observed. Hyolaryngeal elevation and excursion was WNL. No pain or discomfort reported with swallowing and no coughing observed across all trials. Fatigue/Endurance Endurance WNL Comment No concerns for endurance at this time. Findings Swallowing Function Within normal limits Severity of Swallow Impairment Within normal limits Comment The pt presents with swallowing WNL at this time, though continues to have concern with chronic cough while eating. Unable to rule out silent aspiration with clinical swallow evaluation. Pt presents with cough during meals, which is often a sign of aspiration. Coughing was not observed during clinical swallow evaluation, but aspiration cannot be ruled out at this time. Due to patient' s history of digestive issues and current symptoms, a modified barium swallow study is recommended to rule out aspiration and structural abnormalities. Recommend follow-up appointment with NUT PROCESS HELPER after modified barium swallow study is completed to determine plan of care. Impact on Safety and Functioning Risk for aspiration Recommendations Instrumental Assessment Yes Swallowing Treatment Yes Recommended Solids Regular Recommended Liquids Thin Safety Precautions/Swallowing Remain upright (90 degrees) Recommendations during all oral intake,Upright position at least 30 minutes after meals,Small bites and sips when eating,Alternate liquids and solids Medication Recommendations As Tolerated Education Patient/Caregiver Education Described results of evaluation,Patient expressed understanding of evaluation, Patient expressed agreement with goals & treatment plans, Patient expressed understanding of safety precautions,Patient expressed understanding of feeding recommendations,Patient requires further education/ training Goals Short-term Goals 1. Pt to participate in modified barium swallow study to inform plan of care. Long-term Goals The pt will safely tolerate least restrictive diet to meet her nutrition and hydration needs.
--- NOTE | 2021-12-10 15:17 | ST.OPPOC ---
Physical, Occupational & Speech Therapy At [facility] Visit Care Team Role Provider Type Laura Pringle MD Attending Provider Physician Family Provider Primary Care Provider Referring Provider Address: [address] [place] [address], [place], [address] Speech Pathology Plan of Care Plan of Care Dates 12/10/2021 - 05/07/[address] Laura Pringle Patient History Ginger is a 71-year-old female referred to speech therapy due to concerns about coughing when she is eating. Pt noticed she coughs when she eats, especially during breakfast. She stated coughing often occurs with dry, crumbly foods and she has not noticed it with liquids or soft foods. Ginger reported she coughs about 3x during breakfast and only 1-2x during lunch and dinner. She added she often coughs when she lies down to go to bed. Pt reported she had about a foot of her colon removed about 7 years ago as she was experiencing cramps, food sensitivities, and other digestive issues, which were attributed to her colon being too long. Pt added she and her sister are unable to burp. Short-term Goals 1. Pt to participate in modified barium swallow study to inform plan of care. Long-term Goals The pt will safely tolerate least restrictive diet to meet her nutrition and hydration needs. Comment: Electronically Signed by: MT Rodriguez 12/10/21 2995 If you are in agreement with this Plan of Care, please return a signed and dated copy. I have reviewed this Plan of Care and certify that the skilled therapy services above are required to meet the patient?s needs. Physician Signature Date Printed Name and Credentials Clinical Instructor Signature Printed Name and Credentials
--- NOTE | 2022-01-13 14:24 | ST.OPDS ---
Visit Care Team Role Provider Type Laura Pringle MD Attending Provider Physician Family Provider Primary Care Provider Referring Provider Address: [address] [place] [address], [id number] [facility] Treatment Note BALANCE [facility]ER Treatment Note Start: 01/13/22 14:17 Freq: Status: Active Protocol: Document 01/13/22 14:20 ZS (Rec: 01/13/22 14:24 ZS [id number]) Speech Pathology Treatment Note Visit Information Plan of Care Dates 12/10/2021 - 05/07/2022 Setting Treatment Setting Outpatient Care Visit Type Note Type Discharge Summary General Information Patient History Ginger is a 71-year-old female referred to speech therapy due to concerns about coughing when she is eating. Pt noticed she coughs when she eats, especially during breakfast. She stated coughing often occurs with dry, crumbly foods and she has not noticed it with liquids or soft foods. Ginger reported she coughs about 3x during breakfast and only 1-2x during lunch and dinner. She added she often coughs when she lies down to go to bed. Pt reported she had about a foot of her colon removed about 7 years ago as she was experiencing cramps, food sensitivities, and other digestive issues, which were attributed to her colon being too long. Pt added she and her sister are unable to burp. The pt presents with swallowing WNL at this time, though continues to have concern with chronic cough while eating. Unable to rule out silent aspiration with clinical swallow evaluation. Pt presents with cough during meals, which is often a sign of aspiration. Coughing was not observed during clinical swallow evaluation, but aspiration cannot be ruled out at this time. Due to patient' s history of digestive issues and current symptoms, a modified barium swallow study is recommended to rule out aspiration and structural abnormalities. Recommend follow-up appointment with BALANCE TRUER after modified barium swallow study is completed to determine plan of care. Subjective Chief Complaint(s) Swallowing Objective Short Term Goals 1. Pt to participate in modified barium swallow study to inform plan of care. Manager Communication Goals The pt will safely tolerate least restrictive diet to meet her nutrition and hydration needs. Assessment Assessment of Improvement Called and left message for pt to follow-up regarding POC. Pt had a barium swallow study on 01/05/22 and findings indicated the following: There is marked esophageal dysmotility with loss of the primary wave. Moderate to severe diffuse esophageal dilatation is present. There high-grade tapering stenosis of the distal esophagus at the gastroesophageal junction. There is delayed passage of a barium tablet through the gastroesophageal junction. Findings suggestive of achalasia, with severe gastroesophageal junction narrowing and proximal dilatation. Underlying neoplasm cannot be excluded. Further assessment with endoscopy is recommended. Given results of barium swallow study, pt is recommended to follow up with PCP for treatment options and next steps. Discharging from speech therapy at this time. Informed pt via voicemail of discharge and pt to get referral from PCP if speech therapy is still indicated based on findings of barium swallow study. Plan Therapeutic Contents Swallowing/Feeding Provided Patient/Caregiver Instruction Plan of Care Therapy Recommendations Discharge from Speech Therapy Reason for Discharge Results of barium swallow study indicate other issues present. F/U w/ PCP
== END 2022-01-14 08:03 ==
LOC: SP 14:18
PROVIDERS: Family Provider Internal Medicine; PCP Internal Medicine; Referring Provider Internal Medicine; Visit Provider Internal Medicine
DX: R05.9 Cough, unspecified (principal)
CPT/HCPCS: 92610

== ENCOUNTER → 2022-01-05 10:25 | Outpatient (CLI) | payer MEDICARE, OTHER, SELFPAY ==
--- NOTE | 2022-01-05 10:27 | DI.RAD.S_ITS ---
PROCEDURE: FL BARIUM SWALLOW INDICATIONS: Dysphagia, unspecified COMPARISON: None. FINDINGS: Function: There is marked esophageal dysmotility with loss of the primary wave. Moderate to severe diffuse esophageal dilatation is present. There high-grade tapering stenosis of the distal esophagus at the gastroesophageal junction. There is delayed passage of a barium tablet through the gastroesophageal junction. Morphology: Air-contrast images demonstrate normal mucosal morphology. IMPRESSION: 1. Findings suggestive of achalasia, with severe gastroesophageal junction narrowing and proximal dilatation. 2. Underlying neoplasm cannot be excluded. Further assessment with endoscopy is recommended. Dictated by: Patricia Gore M.D. on 01/05/2022 at 14:48 Approved by: Patricia Gore M.D. on 01/05/2022 at 14:49
== END ==
PROVIDERS: PCP Internal Medicine; Referring Provider Internal Medicine; Visit Provider Internal Medicine
DX: K22.2 Esophageal obstruction (principal); K22.89 Other specified disease of esophagus; R13.10 Dysphagia, unspecified
CPT/HCPCS: 74220

== ENCOUNTER → 2022-02-25 18:25 | Outpatient (CLI) | payer MEDICARE, OTHER, SELFPAY | PROVIDERS: PCP Internal Medicine; Visit Provider Registered Nurse | DX: R30.0 Dysuria (principal) | CPT/HCPCS: 87077; 87086; 87186 ==

== ENCOUNTER → 2022-06-27 15:33 | Outpatient (CLI) | payer MEDICARE, OTHER, SELFPAY ==
[2022-06-27 16:26] LABS: Influenza A - CEPHEID Flu A NEGATIVE (NEGATIVE); Influenza B - CEPHEID Flu B NEGATIVE (NEGATIVE); Respiratory Syncytial Virus Negative (Negative)
[2022-06-27 18:11] LABS: COVID-19 CEPHEID 4-PLEX PCR Negative (Negative)
== END ==
PROVIDERS: PCP Internal Medicine; Visit Provider Student in an Organized Health Care Education/Training Program
DX: R05.1 Acute cough (principal)
CPT/HCPCS: 0241U

== ENCOUNTER 2023-10-10 19:21 | Emergency (ER) | payer MEDICARE, OTHER, SELFPAY ==
[2023-10-10 19:35] VITALS: BP 135/82; PULSE 92; RESP 16; TEMP 37.2; O2SAT 97; BMI 19.9
--- NOTE | 2023-10-10 19:41 | DI.RAD.S_ITS ---
PROCEDURE: XR WRIST LT MIN 3V INDICATIONS: pain and swelling in wrist TECHNIQUE: 4 views of the wrist were acquired. COMPARISON: None. FINDINGS: Bones: Bones are demineralized. No fractures or dislocations. No suspicious bony lesions. Soft tissues: No suspicious soft tissue calcifications. IMPRESSION: No acute radiographic abnormality. Approved by: Dagmar Becerril M.D.,Ph.D. on 10/10/2023 at 20:24
--- NOTE | 2023-10-10 22:28 | ED.GENADULT ---
HPI - General Adult General Chief complaint: Extremity Injury, Upper Stated complaint: Left wrist injury Time Seen by Provider: 10/10/23 22:13 Source: patient Mode of arrival: Ambulatory History of Present Illness HPI narrative: Patient is a 73-year-old female here for evaluation swelling and redness to the after wrist. She states that she noticed a rather suddenly earlier this evening. No specific trauma she states it does hurt move her wrist. No other joint pain. No fevers. There was some question is whether or not she has ever had gout in the past although she was never been treated for it. She does not remember ever happening in her wrist. She does not recall any specific insect stings. Related Data Home Medications Medication Instructions Recorded Confirmed estradiol 10 mcg vaginal tablet 10 mcg vaginal QTUTH 12/24/19 06/27/22 simvastatin 20 mg tablet 20 mg PO DAILY 12/24/19 06/27/22 Previous Rx's Medication Instructions Recorded cephalexin 500 mg capsule 500 mg PO QID 5 days #20 caps 10/11/23 Allergies Allergy/AdvReac Type Severity Reaction Status Date / Time Penicillins Allergy Unknown unknown Verified 06/27/22 15:35 Sulfa (Sulfonamide Allergy Unknown Rash Verified 06/27/22 15:35 Antibiotics) Review of Systems Constitutional Constitutional: Reports system reviewed and no additional complaints, except as documented Musculoskeletal Musculoskeletal: Reports system reviewed and no additional complaints, except as documented Integumentary/Breasts Skin/Breast: Reports system reviewed and no additional complaints, except as documented Neurologic Neurologic: Reports system reviewed and no additional complaints, except as documented Allergic/Immunologic Allergic/Immunologic: Reports system reviewed and no additional complaints, except as documented Patient History Medical History Hypercholesteremia Patient denies medical problems Surgical History Hx of tonsillectomy Social History household members: spouse Smoking Status: Never smoker alcohol intake: current Smoking Status: Never smoker alcohol intake frequency: 0-2 drinks per day Substance Use Type: does not use Exam Initial Vital Signs Initial Vital Signs: Vital Signs Temperature 98.9 F 10/10/23 19:35 Pulse Rate 92 H 10/10/23 19:35 Respiratory Rate 16 10/10/23 19:35 Blood Pressure 135/82 10/10/23 19:35 Pulse Oximetry 97 10/10/23 19:35 Oxygen Delivery Method Room Air 10/10/23 19:35 Const General: cooperative, comfortable and No ill appearing [facility] Head: normal to inspection Cardio Pulses: radial pulses present on the left Skin Other: Mild redness with some warmth in the dorsum of the left wrist. Neuro Sensory Exam: no sensory deficits noted Extrem Other: Mild swelling to the dorsum of the left wrist. Left elbow was unremarkable. She can pronate and supinate but it does hurt to flex and extend. Procedures Orthopedic Splinting/Casting Injury #1: Side: left Upper Extremity Injury Location: wrist Upper Extremity Immobilizer: wrist splint Post splinting neuro exam: no change Post splinting vascular exam: no change Placed by: Nursing Course Orders Ordered: ED Orders 10/10/23 23:10 Basic Metabolic Panel Stat Complete Blood Count AUTO DIFF Stat Uric Acid Stat Vital Signs Vital signs: Vital Signs - 8 hr 10/10/23 19:35 Temperature 98.9 F Pulse Rate 92 H Respiratory Rate 16 Blood Pressure 135/82 Pulse Oximetry 97 Oxygen Delivery Method Room Air Medical Decision Making Medical Records Medical records reviewed: Yes I reviewed the patient's medical records. Lab Data Lab results reviewed: Yes I reviewed the patient's lab results. 10/10/23 23:10 10/10/23 23:10 Labs: Lab Results 10/10/23 Range/Units 23:10 WBC 9.1 (4.5-11.0) X10^3/uL RBC 4.17 (4.0-5.2) X10^6/uL Hgb 12.6 (12.0-16.0) g/dL Hct 36.6 (36-46) % MCV 87.9 (80-100) fL MCH 30.1 (26-34) PG MCHC 34.3 (30-36) % RDW 15.7 H (11.6-14.8) % Plt Count 191 (150-400) X10^3/uL Neut % (Auto) 75.5 H (50-75) % Lymph % (Auto) 12.8 L (25-40) % [place] % (Auto) 9.7 (3-14) % Eos % (Auto) 0.5 L (2-4) % Baso % (Auto) 1.5 (0-2) % Neut # (Auto) 6900 (4393-5585) /uL Lymph # (Auto) 1200 (6974-9273) /uL [place] # (Auto) 900 (0-900) /uL Eos # (Auto) 0 (0-450) /uL Baso # (Auto) 100 (0-100) /uL Sodium 132 L (137-145) mmol/L Potassium 4.6 (3.4-5.1) mmol/L Chloride 103 (98-107) mmol/L Carbon Dioxide 24 (22-32) mmol/L BUN 22 H (7-17) mg/dL Creatinine 0.47 L (0.52-1.04) mg/dL Estimated GFR > 60 (>60) mL/min BUN/Creatinine Ratio 46.8 H (6-22) Glucose 136 H (80-110) mg/dL Uric Acid 5.0 (2.5-6.2) mg/dL Calcium 8.6 (8.4-10.2) mg/dL Imaging Data Extremity x-ray #1: Radiologist's Impression: PROCEDURE: XR WRIST LT MIN 3V INDICATIONS: pain and swelling in wrist TECHNIQUE: 4 views of the wrist were acquired. COMPARISON: None. FINDINGS: Bones: Bones are demineralized. No fractures or dislocations. No suspicious bony lesions. Soft tissues: No suspicious soft tissue calcifications. IMPRESSION: No acute radiographic abnormality. MDM Narrative Medical decision making narrative: Patient does have redness and swelling of the dorsum of the left wrist. It did seem to be somewhat of a quick onset which makes things like an infection unlikely. Her white count is normal. She was afebrile. Her uric acid is negative. This could still potentially be count. Her x-ray shows no signs fracture. There was no other indication that this is some sort of a allergic reaction. Patient understands lack of a definitive diagnosis. For now we will continue with conservative measures to include a removable wrist splint for soft tissue rest that she can remove to bathe and wash her hands. She was given a prescription for antibiotics but she was going to wait for the next 24-48 hours. If her symptoms do not improve she can take the antibiotics as directed. She understands that if her symptoms worsen that she needs to return to the emergency department for further evaluation. I do have a low suspicion for a septic joint. Discharge Plan Departure Patient Disposition: Home Clinical Impression: Arthritis Instructions: DI for Arthritis Activity Restrictions/Additional Instructions: The splint is for your comfort. You can take it off to shower and also wash your hands. You can also take it off to ice your wrist as well. I also recommend an anti-inflammatory such as Naprosyn. You can purchase this [id number]. Be sure that you were taking it with some food. Hold on filling the prescription for antibiotics for the next couple days. If your symptoms have not improved by then then start taking the antibiotics as directed. Return to the emergency department for worsening symptoms. Prescriptions: New cephalexin 500 mg capsule 500 mg PO QID 5 Days Qty: 20 0RF No Action simvastatin 20 mg tablet 20 mg PO DAILY estradiol 10 mcg tablet 10 mcg VAGINAL QTUTH Referrals: Laura Pringle MD [Primary Care Provider] - Stand Alone Forms: Patient Portal/API
[2023-10-10 23:23] LABS: Add Manual Diff / Slide Review NO; Basophils Absolute Auto 100 /uL (0-100); Basophils Percent Auto 1.5 % (0-2); Eosinophils Absolute Auto 0 /uL (0-450); Eosinophils Percent Auto 0.5 % (2-4); Hematocrit 36.6 % (36-46); Hemoglobin 12.6 g/dL (12.0-16.0); Lymphocytes Absolute Auto 1200 /uL (1100-4500); Lymphocytes Percent Auto 12.8 % (25-40); Mean Corpuscular HGB Conc 34.3 % (30-36); Mean Corpuscular Hemoglobin 30.1 PG (26-34); Mean Corpuscular Volume 87.9 fL (80-100); Monocytes Absolute Auto 900 /uL (0-900); Monocytes Percent Auto 9.7 % (3-14); Neutrophils Absolute Auto 6900 /uL (1500-7000); Neutrophils Percent Auto 75.5 % (50-75); Platelet Count 191 X10^3/uL (150-400); Red Blood Cell Count 4.17 X10^6/uL (4.0-5.2); Red Cell Distribution Width 15.7 % (11.6-14.8); White Blood Cell Count 9.1 X10^3/uL (4.5-11.0)
[2023-10-10 23:51] LABS: BUN Creatinine Ratio 46.8 (6-22); Blood Urea Nitrogen 22 mg/dL (7-17); Calcium 8.6 mg/dL (8.4-10.2); Carbon Dioxide 24 mmol/L (22-32); Chloride 103 mmol/L (98-107); Estimated Glomerular Filt Rate > 60 mL/min (>60); Glucose 136 mg/dL (80-110); Potassium 4.6 mmol/L (3.4-5.1); Sodium 132 mmol/L (137-145)
[2023-10-10 23:56] LABS: HEMOLYSIS 67 (0-50)
== END 2023-10-11 00:25 | disposition home or self-care (01) ==
PROVIDERS: Emergency Provider Emergency Medicine; PCP Internal Medicine
DX: M13.832 Other specified arthritis, left wrist (principal)
CPT/HCPCS: 73110; 80048; 84550; 85025; 99281; 99283

== ENCOUNTER 2024-12-03 14:02 | Emergency (ER) | payer MEDICARE, OTHER, SELFPAY ==
[2024-12-03] VITALS (9 sets, daily range): BP systolic 117–138; BP diastolic 74–88; PULSE 88–115; RESP 18; TEMP 37.2; O2SAT 94–96; BMI 16.2
--- NOTE | 2024-12-03 14:30 | DI.RAD.S_ITS ---
PROCEDURE: XR CHEST 2V INDICATIONS: Cough, Fever, hx lung cancer TECHNIQUE: 2 views of the chest were acquired. COMPARISON: [facility], CR, XR CHEST 2V, 12/03/2021, 12:57. FINDINGS: Surgical changes and devices: None. Lungs and pleura: Ill-defined airspace opacities are noted in bilateral lower lung kerr concerning for bilateral lower lobe infiltrates/atelectasis more prominent on the left side. No pleural effusions or pneumothorax. Mediastinum: Mediastinal contours are normal. Heart size is normal. Bones and chest wall: No suspicious bony abnormalities. Soft tissues appear unremarkable. IMPRESSION: Finding is suggestive of left worse than right bibasilar infiltrate/atelectasis. Clinical correlation and follow-up is recommended. No pleural effusion or pneumothorax. Dictated by: Gunnar Banks M.D. on 12/03/2024 at 15:27 Approved by: Gunnar Banks M.D. on 12/03/2024 at 15:30
--- NOTE | 2024-12-03 14:30 | EKG_ITS ---
[address] [address] Test Date: 2024-12-03 Pat Name: Ginger Louise Department: Room: Gender: Female Sluice Tender: ARDEN : 1950 Requested By: Order Number: [id number] Reading MD: Zachariah David Measurements Intervals [place] Rate: 99 P: 41 RI: 122 QRS: -24 QRSD: 84 T: 57 QT: 334 QTc: 428 Interpretive Statements Normal sinus rhythm Inferior infarct , age undetermined Possible Anterior infarct , age undetermined Electronically Signed On 12-13-2024 13:43:21 PDT by Zachariah David
[2024-12-03 15:15] LABS: Add Manual Diff / Slide Review NO; Hematocrit 31.7 % (36-46); Hemoglobin 10.8 g/dL (12.0-16.0); Lymphocytes Absolute Auto 1000 /uL (1100-4500); Mean Corpuscular HGB Conc 34.1 % (30-36); Mean Corpuscular Hemoglobin 28.1 PG (26-34); Mean Corpuscular Volume 82.3 fL (80-100); Platelet Count 228 X10^3/uL (150-400)
[2024-12-03 15:19] LABS: INR 1.1 (0.9-1.3); Prothrombin Time 12.0 SECONDS (9.4-12.5)
[2024-12-03 15:22] LABS: PTT Partial Thromboplastin Tim 25 SECONDS (25.1-36.5)
[2024-12-03 15:23] LABS: Alanine Aminotransferase 23 IU/L (<35); Albumin 3.9 g/dL (3.5-5.0); Albumin Globulin Ratio 1.0 (1.0-2.8); Alkaline Phosphatase 101 U/L (38-126); Blood Urea Nitrogen 16 mg/dL (7-17); Calcium 8.9 mg/dL (8.4-10.2); Carbon Dioxide 23 mmol/L (22-32); Chloride 104 mmol/L (98-107); Estimated Glomerular Filt Rate > 60 mL/min (>60); Globulin 3.9 g/dL (1.7-4.1); Glucose 168 mg/dL (70-99); HEMOLYSIS < 15 (0-50); Lipase 112 U/L (23-300); Potassium 3.8 mmol/L (3.4-5.1); Sodium 138 mmol/L (137-145); Total Protein 7.8 g/dL (6.3-8.2)
[2024-12-03 15:24] LABS: Lactate (Lactic Acid) 1.8 mmol/L (0.7-2.1)
[2024-12-03 15:40] LABS: Procalcitonin 0.237 ng/mL (<0.5)
[2024-12-03 16:13] LABS: Coronavirus NL 63 Not Detected (Not Detect); SARS- CoV-2 Not Detected (Not Detecte)
[2024-12-03] MEDS: SODIUM CHLORIDE 0.9% 1,000 ML 1000 ML IV (16:43)
--- NOTE | 2024-12-03 19:15 | ED.FEVER ---
HPI - Fever General Chief Complaint: Fever Stated Complaint: fever, chills, cough- at risk Time Seen by Provider: 12/03/24 19:06 Source: patient Mode of arrival: Family Vehicle History of Present Illness HPI Narrative: 74-year-old female patient with a history of lung cancer who felt chills and fever this morning and the slight cough and less energy. Minimal shortness of breath. No sore throat or congestion. Related Data Home Medications ?Medication ?Instructions ?Recorded ?Confirmed estradiol 10 mcg vaginal tablet 10 mcg vaginal QTUTH 12/24/19 06/27/22 simvastatin 20 mg tablet 20 mg PO DAILY 12/24/19 06/27/22 Allergies Allergy/AdvReac Type Severity Reaction Status Date / Time Penicillins Allergy Unknown unknown Verified 06/27/22 15:35 Sulfa (Sulfonamide Allergy Unknown Rash Verified 06/27/22 15:35 Antibiotics) Review of Systems Review of Systems ROS Unobtainable: All systems reviewed & are unremarkable except as noted in HPI and below Constitutional Constitutional: Reports as per HPI and Reports chills ENT Ears, Nose, Mouth, and Throat: Denies dysphagia, Denies nasal congestion, Denies sinus pain, Denies sinus pressure and Denies sore throat Cardiovascular Cardiovascular: Denies chest pain and Denies dyspnea Respiratory Respiratory: Reports as per HPI and Denies dyspnea Gastrointestinal Gastrointestinal: Denies abdominal pain, Denies dysphagia, Denies nausea and Denies vomiting Musculoskeletal Musculoskeletal: Denies back pain and Denies myalgias Patient History Medical History Hypercholesteremia Patient denies medical problems Surgical History Hx of tonsillectomy Social History household members: spouse alcohol intake: current alcohol intake frequency: 0-2 drinks per day Exam Initial Vital Signs Initial Vital Signs: Vital Signs Temperature 99 F 12/03/24 14:24 Pulse Rate 115 H 12/03/24 14:24 Respiratory Rate 18 12/03/24 14:24 Blood Pressure 138/74 12/03/24 14:24 Pulse Oximetry 94 12/03/24 14:24 Oxygen Delivery Method Room Air 12/03/24 14:24 Const General: cooperative, healthy appearing, comfortable, well developed and No acute distress [facility] Head: normocephalic and atraumatic Mouth: oropharynx normal Eyes Pupils: PERRL EOM: EOM intact bilaterally Neck Neck: normal visual inspection and full ROM Chest Chest: normal inspection of the chest and normal palpation of entire chest wall Resp Effort & Inspection: normal respiratory effort, able to speak in complete sentences and no respiratory distress Auscultation: clear to auscultation bilaterally Cardio Rate: regular rate Rhythm: regular rhythm GI Palpation: soft and No tender Skin Rashes: no rashes Course Orders Ordered: Discontinued Medications Sodium Chloride (Normal Saline 0.9%) 1,000 mls @ 1,000 mls/hr IV BOLUS ONE Stop: 12/03/24 15:29 Last Infusion: 12/03/24 18:14 Dose: Infused Documented By: Admin: 12/03/24 16:43 Dose: 1,000 mls/hr Documented By: ILANA Ondansetron HCl (Ondansetron 4 Mg/2 Ml Inj) 4 mg IV NOW PRN PRN Reason: Nausea And Vomiting Ondansetron HCl (Ondansetron 4 Mg Odt) 4 mg PO NOW PRN PRN Reason: Nausea And Vomiting Vital Signs Vital signs: Vital Signs - 8 hr 12/03/24 18:30 12/03/24 18:30 12/03/24 19:00 Pulse Rate 91 H 88 Blood Pressure 136/79 Pulse Oximetry 94 94 12/03/24 19:00 Pulse Rate Blood Pressure 128/76 Pulse Oximetry MDM - Fever Lab Data 12/03/24 14:55 12/03/24 14:55 Labs: Lab Results 12/03/24 Range/Units 14:55 WBC 12.8 H (4.5-11.0) X10^3/uL RBC 3.85 L (4.0-5.2) X10^6/uL Hgb 10.8 L (12.0-16.0) g/dL Hct 31.7 L (36-46) % MCV 82.3 (80-100) fL MCH 28.1 (26-34) PG MCHC 34.1 (30-36) % RDW 15.3 H (11.6-14.8) % Plt Count 228 (150-400) X10^3/uL Neut % (Auto) 84.4 H (50-75) % Lymph % (Auto) 8.1 L (25-40) % [place] % (Auto) 7.3 (3-14) % Eos % (Auto) 0.0 L (2-4) % Baso % (Auto) 0.2 (0-2) % Neut # (Auto) 87752 H (4477-2345) /uL Lymph # (Auto) 1000 L (4739-0167) /uL [place] # (Auto) 900 (0-900) /uL Eos # (Auto) 0 (0-450) /uL Baso # (Auto) 0 (0-100) /uL PT 12.0 (9.4-12.5) SECONDS INR 1.1 (0.9-1.3) APTT 25 L (25.1-36.5) SECONDS Sodium 138 (137-145) mmol/L Potassium 3.8 (3.4-5.1) mmol/L Chloride 104 (98-107) mmol/L Carbon Dioxide 23 (22-32) mmol/L BUN 16 (7-17) mg/dL Creatinine 0.82 (0.52-1.04) mg/dL Estimated GFR > 60 (>60) mL/min BUN/Creatinine Ratio 19.5 (6-22) Glucose 168 H (70-99) mg/dL Lactate 1.8 (0.7-2.1) mmol/L Calcium 8.9 (8.4-10.2) mg/dL Total Bilirubin 0.6 (0.2-1.3) mg/dL AST 30 (14-36) IU/L ALT 23 (<35) IU/L Alkaline Phosphatase 101 (38-126) U/L Total Protein 7.8 (6.3-8.2) g/dL Albumin 3.9 (3.5-5.0) g/dL Globulin 3.9 (1.7-4.1) g/dL Albumin/Globulin Ratio 1.0 (1.0-2.8) Lipase 112 (23-300) U/L Procalcitonin 0.237 (<0.5) ng/mL Chlamy pneumoniae PCR Not detected (Not Detect) Adenovirus (PCR) Not detected (Not Detect) B. pertussis DNA (PCR) Not detected (Not Detect) B.parapertussis DNA PCR Not detected (Not Detecte) Coronavirus OC43 (PCR) Not detected (Not Detect) Coronavirus HKU1 (PCR) Not detected (Not Detect) Coronavirus 229E (PCR) Not detected (Not Detect) SARS-CoV-2 (PCR) Not detected (Not Detecte) Coronavirus NL63 (PCR) Not detected (Not Detect) Human Metapneumovir PCR Not detected (Not Detect) Influenza Type A (PCR) Not detected (Not Detect) Influenza Type B (PCR) Not detected (Not Detect) M. pneumoniae (PCR) Not detected (Not Detect) Parainfluenza 1 (PCR) Not detected (Not Detect) Parainfluenza 2 (PCR) Not detected (Not Detect) Parainfluenza 3 (PCR) Not detected (Not Detect) Parainfluenza 4 (PCR) Not detected (Not Detect) RSV (PCR) Not detected (Not Detect) Entero/Rhino (PCR) Detected H (Not Detect) Imaging Data Chest x-ray: My Impression: Bibasilar atelectasis versus less likely infiltrate. Otherwise unremarkable. Radiologist's Impression: MDM Narrative Medical decision making narrative: Patient has symptoms of a viral illness. There was concern for sepsis or pneumonia but she has negative lactate, procalcitonin and other labs reassuring. Chest x-ray shows atelectasis versus infiltrate but with a negative procalcitonin and her positive rhino virus this appears to be viral chest cold. Her saturations to completion we dipped to 89 but when she breathes normally sits up she is in the 92-95 range. I do not believe she needs further workup or admission. Plan is home with hydration and supportive care for viral upper respiratory infection/chest cold. Follow up with primary care as needed. Return to the ER if worse Discharge Plan Departure Patient Disposition: Home Clinical Impression: Upper respiratory infection, viral Instructions: DI for Viral Upper Respiratory Infection -- Adult Activity Restrictions/Additional Instructions: Assessment: Lab work reassuring. This appears to be a viral chest cold/URI. Plan: Hydration, rest and supportive care with [id number] remedies as needed. Return to the ER if worse. Otherwise follow up with your doctor Prescriptions: No Action simvastatin 20 mg tablet 20 mg PO DAILY estradiol 10 mcg tablet 10 mcg VAGINAL QTUTH Referrals: Laura Pringle MD [Primary Care Provider, Internal Medicine] Stand Alone Forms: Patient Portal/API
== END 2024-12-03 19:30 | disposition home or self-care (01) ==
PROVIDERS: Emergency Medicine; Emergency Provider Emergency Medicine; PCP Internal Medicine
DX: J02.9 Acute pharyngitis, unspecified (principal)
CPT/HCPCS: 36415; 71046; 80053; 83605; 83690; 84145; 85025; 85610; 85730; 87040; 87633; 93005; 96360; 99284

== ENCOUNTER 2025-01-26 10:06 | Emergency (ER) | payer MEDICARE, OTHER, SELFPAY ==
[2025-01-26] VITALS (58 sets, daily range): BP systolic 130–174; BP diastolic 87–108; PULSE 101–152; RESP 20–71; TEMP 36.9; O2SAT 85–100; BMI 16.9
--- NOTE | 2025-01-26 10:20 | ED.GENADULT ---
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 Patient presents with fevers for the past 2 or 3 days up to 100.8 F, has been notes she has had wet gurgling sound for at least several days although he states that is somewhat baseline. She has not had a new cough she has not had a new productive cough. Denies chest pain she has felt short of breath. No nausea or vomiting. Has been having bowel movements intermittently. No diarrheal stools. No black or bloody stools reported. No dysuria urgency or frequency. No new swelling in extremities. Patient is found to be hypoxic here does not usually use any oxygen has not required in the past. She takes medication for diabetes, mood and cachexia as well as statin, they deny any prior cardiac interventions. She does have a PEG tube for recurrent aspiration as she has had issues with her larynx. Patient has a reported allergy to penicillin but unclear what this is, also notes an allergy to sulfa. Prior surgeries include PEG tube, gamma knife for metastases in her neck and biopsies x2 of her chest. No tobacco, occasional alcohol, no recreational drugs. Patient's spouse is at bedside. Patient is full code at this time but have had discussions about hospice with the oncology team at [facility]. Related Data Home Medications ?Medication ?Instructions ?Recorded ?Confirmed estradiol 10 mcg vaginal tablet 10 mcg vaginal QTUTH 12/24/19 01/27/25 simvastatin 20 mg tablet 20 mg PO DAILY 12/24/19 01/27/25 atorvastatin 40 mg tablet 40 mg PO DAILY 01/27/25 01/27/25 atropine 1 % eye drops drp 01/27/25 everolimus (antineoplastic) 10 mg 10 mg PO DAILY 01/27/25 01/27/25 tablet insulin lispro 100 unit/mL SUBCUT 01/27/25 subcutaneous pen metformin 1,000 mg tablet 1,000 mg PO BID 01/27/25 01/27/25 olanzapine 5 mg tablet 5 mg PO ONCE PM 01/27/25 01/27/25 omeprazole 40 mg capsule,delayed 40 mg PO DAILY 01/27/25 01/27/25 release Allergies Allergy/AdvReac Type Severity Reaction Status Date / Time Penicillins Allergy Unknown unknown Verified 01/26/25 10:30 Sulfa (Sulfonamide Allergy Unknown Rash Verified 01/26/25 10:30 Antibiotics) Review of Systems <Gisell Henderson DO - Last Filed: 01/27/25 15:19> Review of Systems ROS Unobtainable: All systems reviewed & are unremarkable except as noted in HPI and below Patient History <Gisell Henderson DO - Last Filed: 01/27/25 15:19> Medical History Hypercholesteremia Patient denies medical problems Surgical History Hx of tonsillectomy Social History household members: spouse Smoking Status: Never smoker alcohol intake: current alcohol intake frequency: 0-2 drinks per day Exam <Gisell Henderson DO - Last Filed: 01/27/25 15:19> Narrative Exam Narrative: GENERAL: Alert and oriented x three, [id number] distress conversant HEENT: Head normocephalic, atraumatic, EOMI, pupils reactive, face symmetric, moist mucous membranes NECK: Supple, full range of motion CARDIOVASCULAR: Tachycardic but regular rate and rhythm without murmurs, rubs or gallops. No JVD. No edema bilateral lower extremity. RESPIRATORY: Breath sounds equal bilaterally, no wheezes, patient has a rhonchi, she also has a wet aspirational sounds that are audible at bedside patient and state this is her baseline. ABDOMEN: Soft, nontender. Nondistended. Normoactive bowel sounds all 4 quadrants. No guarding or rebound, rigidity, no mass, PEG tube in place in the left upper quadrant, no erythema or warmth. Nontender. There is a very small amount of dried drainage. : No CVA tenderness EXTREMITIES: Normal range of motion, no clubbing or edema. Neurovascularly intact NEUROLOGICAL: Cranial nerves II through XII grossly intact. Moving all extremities SKIN: Warm, dry, no petechiae, no rashes or lesions. Initial Vital Signs Initial Vital Signs: Vital Signs Pulse Rate 126 H 01/26/25 10:18 Respiratory Rate 40 H 01/26/25 10:18 Pulse Oximetry 88 L 01/26/25 10:18 Oxygen Delivery Method Room Air 01/26/25 10:18 <Thomas Harris MD - Last Filed: 01/27/25 05:41> Initial Vital Signs Initial Vital Signs: Vital Signs Pulse Rate 126 H 01/26/25 10:18 Respiratory Rate 40 H 01/26/25 10:18 Pulse Oximetry 88 L 01/26/25 10:18 Oxygen Delivery Method Room Air 01/26/25 10:18 Course <Gisell Henderson DO - Last Filed: 01/27/25 15:19> Orders Ordered: Discontinued Medications Albuterol/Ipratropium (Albuterol/Ipratropium 3 Ml Ampul) 3 ml INH NOW ONE Stop: 01/27/25 02:52 Last Admin: 01/27/25 03:23 Dose: 3 ml Documented By: MAYRA Dexamethasone (Dexamethasone 10 Mg/Ml Vial) 10 mg IV NOW ONE Stop: 01/27/25 02:53 Last Admin: 01/27/25 03:25 Dose: 10 mg Documented By: DENI Sodium Chloride (Normal Saline 0.9%) 1,572 mls @ 524 mls/hr 30 ml/kg infuse over 3 hr (1572 ml) IV NOW ONE Stop: 01/26/25 13:37 Last Infusion: 01/26/25 14:10 Dose: Infused Documented By: KLAUDIAF(2) Infusion: 01/26/25 11:15 Dose: 524 mls/hr Documented By: Infusion: 01/26/25 10:58 Dose: 0 mls/hr Documented By: Admin: 01/26/25 10:58 Dose: 524 mls/hr Documented By: GONZÁLEZ Levofloxacin (Levaquin) 750 mg in 150 mls @ 100 mls/hr IV NOW ONE Stop: 01/26/25 12:07 Last Infusion: 01/26/25 14:10 Dose: Infused Documented By: DENI(2) Infusion: 01/26/25 11:15 Dose: 100 mls/hr Documented By: Infusion: 01/26/25 10:58 Dose: 0 mls/hr Documented By: Admin: 01/26/25 10:58 Dose: 100 mls/hr Documented By: GONZÁLEZ Metronidazole (Flagyl) 500 mg in 100 mls @ 100 mls/hr IV NOW ONE Stop: 01/26/25 15:39 Last Infusion: 01/26/25 16:19 Dose: Infused Documented By: Admin: 01/26/25 15:18 Dose: 100 mls/hr Documented By: VITOR Vancomycin HCl (Vancomycin) 1,000 mg in 200 mls @ 200 mls/hr IV NOW ONE Stop: 01/26/25 15:59 Last Infusion: 01/26/25 17:30 Dose: Infused Documented By: DENI(2) Admin: 01/26/25 16:20 Dose: 200 mls/hr Documented By: VITOR Metronidazole (Flagyl) 500 mg in 100 mls @ 100 mls/hr IV Q8H IRINA Last Admin: 01/26/25 23:23 Dose: 100 mls/hr Documented By: DENI Cefepime HCl 2 gm/ Sodium (Chloride) 100 mls @ 200 mls/hr IV NOW ONE Stop: 01/27/25 03:54 Last Admin: 01/27/25 04:21 Dose: 200 mls/hr Documented By: DENI Vital Signs Vital signs: Vital Signs - 8 hr 01/26/25 21:45 01/26/25 21:45 01/26/25 22:00 Temperature Pulse Rate 106 H 105 H Respiratory Rate 33 H 30 H Blood Pressure 160/102 H Pulse Oximetry 98 98 Oxygen Delivery Method Oxygen Flow Rate Fraction of Inspired Oxygen 01/26/25 22:00 01/26/25 22:15 01/26/25 22:15 Temperature Pulse Rate 105 H Respiratory Rate 34 H Blood Pressure 156/104 H 154/97 H Pulse Oximetry 97 Oxygen Delivery Method Oxygen Flow Rate Fraction of Inspired Oxygen 01/26/25 22:30 01/26/25 22:30 01/26/25 22:45 Temperature Pulse Rate 103 H Respiratory Rate 71 H Blood Pressure 154/99 H 148/102 H Pulse Oximetry 97 Oxygen Delivery Method Oxygen Flow Rate Fraction of Inspired Oxygen 01/26/25 22:45 01/26/25 23:00 01/26/25 23:00 Temperature Pulse Rate 104 H 102 H Respiratory Rate 54 H 33 H Blood Pressure 152/99 H Pulse Oximetry 97 Oxygen Delivery Method Oxygen Flow Rate Fraction of Inspired Oxygen 01/26/25 23:15 01/26/25 23:15 01/26/25 23:30 Temperature Pulse Rate 101 H 101 H Respiratory Rate 30 H 29 H Blood Pressure 151/98 H Pulse Oximetry 97 Oxygen Delivery Method Oxygen Flow Rate Fraction of Inspired Oxygen 01/26/25 23:30 01/26/25 23:45 01/26/25 23:45 Temperature Pulse Rate 101 H Respiratory Rate 32 H Blood Pressure 157/100 H 159/97 H Pulse Oximetry 98 Oxygen Delivery Method Oxygen Flow Rate Fraction of Inspired Oxygen 01/27/25 00:00 01/27/25 00:00 01/27/25 00:00 Temperature 98.0 F Pulse Rate 102 H Respiratory Rate 37 H Blood Pressure 159/99 H Pulse Oximetry 98 Oxygen Delivery Method Oxygen Flow Rate Fraction of Inspired Oxygen 01/27/25 00:15 01/27/25 00:30 01/27/25 00:45 Temperature Pulse Rate 108 H 104 H 101 H Respiratory Rate 42 H 75 H Blood Pressure Pulse Oximetry 97 97 Oxygen Delivery Method Oxygen Flow Rate Fraction of Inspired Oxygen 01/27/25 01:00 01/27/25 01:15 01/27/25 01:30 Temperature Pulse Rate 101 H 101 H 101 H Respiratory Rate 29 H 35 H 30 H Blood Pressure Pulse Oximetry 97 97 97 Oxygen Delivery Method Oxygen Flow Rate Fraction of Inspired Oxygen 01/27/25 01:35 01/27/25 01:35 01/27/25 01:45 Temperature Pulse Rate 101 H Respiratory Rate 28 H Blood Pressure 158/85 H 159/89 H Pulse Oximetry 97 Oxygen Delivery Method Oxygen Flow Rate Fraction of Inspired Oxygen 01/27/25 01:45 01/27/25 02:00 01/27/25 02:00 Temperature Pulse Rate 101 H 101 H Respiratory Rate 30 H 23 Blood Pressure 163/91 H Pulse Oximetry 97 Oxygen Delivery Method Oxygen Flow Rate Fraction of Inspired Oxygen 01/27/25 02:15 01/27/25 02:15 01/27/25 02:30 Temperature Pulse Rate 102 H 101 H Respiratory Rate 28 H 26 H Blood Pressure 154/87 H Pulse Oximetry 96 Oxygen Delivery Method Oxygen Flow Rate Fraction of Inspired Oxygen 01/27/25 02:30 01/27/25 02:45 01/27/25 02:45 Temperature Pulse Rate 118 H Respiratory Rate 42 H Blood Pressure 159/94 H 213/119 H Pulse Oximetry 95 Oxygen Delivery Method Oxygen Flow Rate Fraction of Inspired Oxygen 01/27/25 02:50 01/27/25 02:50 01/27/25 02:56 Temperature Pulse Rate 124 H 128 H Respiratory Rate 28 H 34 H Blood Pressure 214/127 H Pulse Oximetry 94 93 Oxygen Delivery Method Oxygen Flow Rate Fraction of Inspired Oxygen 01/27/25 02:56 01/27/25 02:58 01/27/25 02:58 Temperature Pulse Rate 132 H Respiratory Rate 43 H Blood Pressure 236/144 H 203/124 H Pulse Oximetry 94 Oxygen Delivery Method Oxygen Flow Rate Fraction of Inspired Oxygen 01/27/25 03:00 01/27/25 03:14 01/27/25 03:14 Temperature Pulse Rate 132 H 121 H Respiratory Rate 29 H 32 H Blood Pressure 163/104 H Pulse Oximetry 94 97 Oxygen Delivery Method Oxygen Flow Rate Fraction of Inspired Oxygen 01/27/25 03:15 01/27/25 03:19 01/27/25 03:19 Temperature Pulse Rate 120 H 120 H Respiratory Rate 22 36 H Blood Pressure 167/106 H Pulse Oximetry 97 97 Oxygen Delivery Method Oxygen Flow Rate Fraction of Inspired Oxygen 01/27/25 03:23 01/27/25 03:30 01/27/25 03:30 Temperature Pulse Rate 115 H 115 H Respiratory Rate 33 H 31 H Blood Pressure 162/105 H Pulse Oximetry 97 98 Oxygen Delivery Method Nasal Cannula Oxygen Flow Rate 8 Fraction of Inspired Oxygen 45 01/27/25 03:45 01/27/25 03:45 01/27/25 04:00 Temperature Pulse Rate 112 H 108 H Respiratory Rate 30 H 29 H Blood Pressure 147/94 H Pulse Oximetry 98 96 Oxygen Delivery Method Oxygen Flow Rate Fraction of Inspired Oxygen 01/27/25 04:00 01/27/25 04:15 01/27/25 04:15 Temperature Pulse Rate 106 H Respiratory Rate 27 H Blood Pressure 147/96 H 144/92 H Pulse Oximetry 97 Oxygen Delivery Method Oxygen Flow Rate Fraction of Inspired Oxygen 01/27/25 04:30 01/27/25 04:30 01/27/25 04:45 Temperature Pulse Rate 108 H 111 H Respiratory Rate 37 H 39 H Blood Pressure 144/95 H Pulse Oximetry 98 99 Oxygen Delivery Method Oxygen Flow Rate Fraction of Inspired Oxygen 01/27/25 04:47 01/27/25 04:47 Temperature Pulse Rate 113 H Respiratory Rate 32 H Blood Pressure 171/106 H Pulse Oximetry 99 Oxygen Delivery Method Oxygen Flow Rate Fraction of Inspired Oxygen <Thomas Harris MD - Last Filed: 01/27/25 05:41> Orders Ordered: Discontinued Medications Albuterol/Ipratropium (Albuterol/Ipratropium 3 Ml Ampul) 3 ml INH NOW ONE Stop: 01/27/25 02:52 Last Admin: 01/27/25 03:23 Dose: 3 ml Documented By: ANKITF Dexamethasone (Dexamethasone 10 Mg/Ml Vial) 10 mg IV NOW ONE Stop: 01/27/25 02:53 Last Admin: 01/27/25 03:25 Dose: 10 mg Documented By: KLAUDIAF Sodium Chloride (Normal Saline 0.9%) 1,572 mls @ 524 mls/hr 30 ml/kg infuse over 3 hr (1572 ml) IV NOW ONE Stop: 01/26/25 13:37 Last Infusion: 01/26/25 14:10 Dose: Infused Documented By: SBF(2) Infusion: 01/26/25 11:15 Dose: 524 mls/hr Documented By: Infusion: 01/26/25 10:58 Dose: 0 mls/hr Documented By: Admin: 01/26/25 10:58 Dose: 524 mls/hr Documented By: BS Levofloxacin (Levaquin) 750 mg in 150 mls @ 100 mls/hr IV NOW ONE Stop: 01/26/25 12:07 Last Infusion: 01/26/25 14:10 Dose: Infused Documented By: SBF(2) Infusion: 01/26/25 11:15 Dose: 100 mls/hr Documented By: Infusion: 01/26/25 10:58 Dose: 0 mls/hr Documented By: Admin: 01/26/25 10:58 Dose: 100 mls/hr Documented By: BS Metronidazole (Flagyl) 500 mg in 100 mls @ 100 mls/hr IV NOW ONE Stop: 01/26/25 15:39 Last Infusion: 01/26/25 16:19 Dose: Infused Documented By: Admin: 01/26/25 15:18 Dose: 100 mls/hr Documented By: VITOR Vancomycin HCl (Vancomycin) 1,000 mg in 200 mls @ 200 mls/hr IV NOW ONE Stop: 01/26/25 15:59 Last Infusion: 01/26/25 17:30 Dose: Infused Documented By: DENI(2) Admin: 01/26/25 16:20 Dose: 200 mls/hr Documented By: VITOR Metronidazole (Flagyl) 500 mg in 100 mls @ 100 mls/hr IV Q8H IRINA Last Admin: 01/26/25 23:23 Dose: 100 mls/hr Documented By: DENI Cefepime HCl 2 gm/ Sodium (Chloride) 100 mls @ 200 mls/hr IV NOW ONE Stop: 01/27/25 03:54 Last Admin: 01/27/25 04:21 Dose: 200 mls/hr Documented By: DENI Vital Signs Vital signs: Vital Signs - 8 hr 01/26/25 21:45 01/26/25 21:45 01/26/25 22:00 Temperature Pulse Rate 106 H 105 H Respiratory Rate 33 H 30 H Blood Pressure 160/102 H Pulse Oximetry 98 98 Oxygen Delivery Method Oxygen Flow Rate Fraction of Inspired Oxygen 01/26/25 22:00 01/26/25 22:15 01/26/25 22:15 Temperature Pulse Rate 105 H Respiratory Rate 34 H Blood Pressure 156/104 H 154/97 H Pulse Oximetry 97 Oxygen Delivery Method Oxygen Flow Rate Fraction of Inspired Oxygen 01/26/25 22:30 01/26/25 22:30 01/26/25 22:45 Temperature Pulse Rate 103 H Respiratory Rate 71 H Blood Pressure 154/99 H 148/102 H Pulse Oximetry 97 Oxygen Delivery Method Oxygen Flow Rate Fraction of Inspired Oxygen 01/26/25 22:45 01/26/25 23:00 01/26/25 23:00 Temperature Pulse Rate 104 H 102 H Respiratory Rate 54 H 33 H Blood Pressure 152/99 H Pulse Oximetry 97 Oxygen Delivery Method Oxygen Flow Rate Fraction of Inspired Oxygen 01/26/25 23:15 01/26/25 23:15 01/26/25 23:30 Temperature Pulse Rate 101 H 101 H Respiratory Rate 30 H 29 H Blood Pressure 151/98 H Pulse Oximetry 97 Oxygen Delivery Method Oxygen Flow Rate Fraction of Inspired Oxygen 01/26/25 23:30 01/26/25 23:45 01/26/25 23:45 Temperature Pulse Rate 101 H Respiratory Rate 32 H Blood Pressure 157/100 H 159/97 H Pulse Oximetry 98 Oxygen Delivery Method Oxygen Flow Rate Fraction of Inspired Oxygen 01/27/25 00:00 01/27/25 00:00 01/27/25 00:00 Temperature 98.0 F Pulse Rate 102 H Respiratory Rate 37 H Blood Pressure 159/99 H Pulse Oximetry 98 Oxygen Delivery Method Oxygen Flow Rate Fraction of Inspired Oxygen 01/27/25 00:15 01/27/25 00:30 01/27/25 00:45 Temperature Pulse Rate 108 H 104 H 101 H Respiratory Rate 42 H 75 H Blood Pressure Pulse Oximetry 97 97 Oxygen Delivery Method Oxygen Flow Rate Fraction of Inspired Oxygen 01/27/25 01:00 01/27/25 01:15 01/27/25 01:30 Temperature Pulse Rate 101 H 101 H 101 H Respiratory Rate 29 H 35 H 30 H Blood Pressure Pulse Oximetry 97 97 97 Oxygen Delivery Method Oxygen Flow Rate Fraction of Inspired Oxygen 01/27/25 01:35 01/27/25 01:35 01/27/25 01:45 Temperature Pulse Rate 101 H Respiratory Rate 28 H Blood Pressure 158/85 H 159/89 H Pulse Oximetry 97 Oxygen Delivery Method Oxygen Flow Rate Fraction of Inspired Oxygen 01/27/25 01:45 01/27/25 02:00 01/27/25 02:00 Temperature Pulse Rate 101 H 101 H Respiratory Rate 30 H 23 Blood Pressure 163/91 H Pulse Oximetry 97 Oxygen Delivery Method Oxygen Flow Rate Fraction of Inspired Oxygen 01/27/25 02:15 01/27/25 02:15 01/27/25 02:30 Temperature Pulse Rate 102 H 101 H Respiratory Rate 28 H 26 H Blood Pressure 154/87 H Pulse Oximetry 96 Oxygen Delivery Method Oxygen Flow Rate Fraction of Inspired Oxygen 01/27/25 02:30 01/27/25 02:45 01/27/25 02:45 Temperature Pulse Rate 118 H Respiratory Rate 42 H Blood Pressure 159/94 H 213/119 H Pulse Oximetry 95 Oxygen Delivery Method Oxygen Flow Rate Fraction of Inspired Oxygen 01/27/25 02:50 01/27/25 02:50 01/27/25 02:56 Temperature Pulse Rate 124 H 128 H Respiratory Rate 28 H 34 H Blood Pressure 214/127 H Pulse Oximetry 94 93 Oxygen Delivery Method Oxygen Flow Rate Fraction of Inspired Oxygen 01/27/25 02:56 01/27/25 02:58 01/27/25 02:58 Temperature Pulse Rate 132 H Respiratory Rate 43 H Blood Pressure 236/144 H 203/124 H Pulse Oximetry 94 Oxygen Delivery Method Oxygen Flow Rate Fraction of Inspired Oxygen 01/27/25 03:00 01/27/25 03:14 01/27/25 03:14 Temperature Pulse Rate 132 H 121 H Respiratory Rate 29 H 32 H Blood Pressure 163/104 H Pulse Oximetry 94 97 Oxygen Delivery Method Oxygen Flow Rate Fraction of Inspired Oxygen 01/27/25 03:15 01/27/25 03:19 01/27/25 03:19 Temperature Pulse Rate 120 H 120 H Respiratory Rate 22 36 H Blood Pressure 167/106 H Pulse Oximetry 97 97 Oxygen Delivery Method Oxygen Flow Rate Fraction of Inspired Oxygen 01/27/25 03:23 01/27/25 03:30 01/27/25 03:30 Temperature Pulse Rate 115 H 115 H Respiratory Rate 33 H 31 H Blood Pressure 162/105 H Pulse Oximetry 97 98 Oxygen Delivery Method Nasal Cannula Oxygen Flow Rate 8 Fraction of Inspired Oxygen 45 01/27/25 03:45 01/27/25 03:45 01/27/25 04:00 Temperature Pulse Rate 112 H 108 H Respiratory Rate 30 H 29 H Blood Pressure 147/94 H Pulse Oximetry 98 96 Oxygen Delivery Method Oxygen Flow Rate Fraction of Inspired Oxygen 01/27/25 04:00 01/27/25 04:15 01/27/25 04:15 Temperature Pulse Rate 106 H Respiratory Rate 27 H Blood Pressure 147/96 H 144/92 H Pulse Oximetry 97 Oxygen Delivery Method Oxygen Flow Rate Fraction of Inspired Oxygen 01/27/25 04:30 01/27/25 04:30 01/27/25 04:45 Temperature Pulse Rate 108 H 111 H Respiratory Rate 37 H 39 H Blood Pressure 144/95 H Pulse Oximetry 98 99 Oxygen Delivery Method Oxygen Flow Rate Fraction of Inspired Oxygen 01/27/25 04:47 01/27/25 04:47 Temperature Pulse Rate 113 H Respiratory Rate 32 H Blood Pressure 171/106 H Pulse Oximetry 99 Oxygen Delivery Method Oxygen Flow Rate Fraction of Inspired Oxygen Medical Decision Making <Gisell Henderson, - Last Filed: 01/27/25 15:19> Lab Data 01/26/25 10:36 01/26/25 10:36 Labs: Lab Results 01/26/25 01/26/25 01/26/25 Range/Units 10:32 10:36 12:55 WBC 22.4 H (4.5-11.0) X10^3/uL RBC 3.18 L (4.0-5.2) X10^6/uL Hgb 8.6 L (12.0-16.0) g/dL Hct 26.3 L (36-46) % MCV 82.8 (80-100) fL MCH 27.1 (26-34) PG MCHC 32.8 (30-36) % RDW 16.7 H (11.6-14.8) % Plt Count 660 H (150-400) X10^3/uL Neut % (Auto) Not Reportable Lymph % (Auto) Not Reportable Greer % (Auto) Not Reportable Eos % (Auto) Not Reportable Baso % (Auto) Not Reportable Lymph # (Auto) Not Reportable Greer # (Auto) Not Reportable Baso # (Auto) Not Reportable Total Counted 100 Seg Neutrophils % 27.0 L (38-70) % Band Neutrophils % 55.0 H (3-7) % Lymphocytes % (Manual) 9.0 L (25-45) % Monocytes % (Manual) 7.0 (2-11) % Metamyelocytes % 1.0 H (-0) % Myelocytes % 1.0 H (-0) % Neutrophils # (Manual) 83406 H (0521-4328) /uL RBC Morphology See Anisocytosis 1+ H PT 41.0 H (9.4-12.5) SECONDS INR 3.7 H (0.9-1.3) ABG Sample Site ABG pH (7.35-7.45) ABG pCO2 (35-45) mmHg ABG pO2 (80-100) mmHg ABG HCO3 (23-27) mmol/L ABG Total CO2 (23-27) mmol/L ABG O2 Saturation (95-100) % ABG Base Excess (-2-3) mmol/L Zachariah Test Respiration Rate O2 Delivery Device FiO2 % % Sodium 139 (137-145) mmol/L Potassium 3.9 (3.4-5.1) mmol/L Chloride 104 (98-107) mmol/L Carbon Dioxide 22 (22-32) mmol/L BUN 37 H (7-17) mg/dL Creatinine 0.74 (0.52-1.04) mg/dL Estimated GFR > 60 (>60) mL/min BUN/Creatinine Ratio 50.0 H (6-22) Glucose 280 H (70-99) mg/dL Lactate 2.8 H 2.3 H (0.7-2.1) mmol/L Calcium 8.5 (8.4-10.2) mg/dL Total Bilirubin 0.3 (0.2-1.3) mg/dL AST 35 (14-36) IU/L ALT 21 (<35) IU/L Alkaline Phosphatase 125 (38-126) U/L Troponin I 0.045 H (0.01-0.034) ng/mL NT-Pro-B Natriuret Pep 1800 H (<450) pg/mL Total Protein 7.3 (6.3-8.2) g/dL Albumin 3.5 (3.5-5.0) g/dL Globulin 3.8 (1.7-4.1) g/dL Albumin/Globulin Ratio 0.9 L (1.0-2.8) Procalcitonin 1.64 H (<0.5) ng/mL Urine Color Urine Appearance Urine pH (4.5-8.0) Ur Specific [place] (1.000-1.035) Urine Protein (Negative) Urine Glucose (UA) (Negative) g/dL Urine Ketones (NEGATIVE) Urine Occult Blood (Negative) Urine Nitrate (Negative) Urine Bilirubin (NEGATIVE) Urine Urobilinogen (0.2) E.U./dL Ur Leukocyte Esterase (NEGATIVE) Urine RBC (0-5/HPF) Urine WBC (0-5/HPF) Ur Squamous Epith Cells (0-5/HPF) Amorphous Sediment Urine Bacteria (None) Ur Culture Indicated? Vol Urine Centrifuged Nasal Screen MRSA (PCR) (Not Detect) SARS-CoV-2 (PCR) Negative (Negative) Influenza A (RT-PCR) Flu a negative (NEGATIVE) Influenza B (RT-PCR) Flu b negative (NEGATIVE) RSV (PCR) Negative (Negative) 01/26/25 01/26/25 01/27/25 Range/Units 15:25 20:13 03:46 WBC (4.5-11.0) X10^3/uL RBC (4.0-5.2) X10^6/uL Hgb (12.0-16.0) g/dL Hct (36-46) % MCV (80-100) fL MCH (26-34) PG MCHC (30-36) % RDW (11.6-14.8) % Plt Count (150-400) X10^3/uL Neut % (Auto) Lymph % (Auto) Greer % (Auto) Eos % (Auto) Baso % (Auto) Lymph # (Auto) Greer # (Auto) Baso # (Auto) Total Counted Seg Neutrophils % (38-70) % Band Neutrophils % (3-7) % Lymphocytes % (Manual) (25-45) % Monocytes % (Manual) (2-11) % Metamyelocytes % (-0) % Myelocytes % (-0) % Neutrophils # (Manual) (9242-0052) /uL RBC Morphology Anisocytosis PT (9.4-12.5) SECONDS INR (0.9-1.3) ABG Sample Site Left radial ABG pH 7.42 (7.35-7.45) ABG pCO2 42.9 (35-45) mmHg ABG pO2 140 H (80-100) mmHg ABG HCO3 28 H (23-27) mmol/L ABG Total CO2 27 (23-27) mmol/L ABG O2 Saturation 99 (95-100) % ABG Base Excess 3.3 H (-2-3) mmol/L Zachariah Test Positive Respiration Rate 28 O2 Delivery Device oxy mask FiO2 % 50.0 % % Sodium (137-145) mmol/L Potassium (3.4-5.1) mmol/L Chloride (98-107) mmol/L Carbon Dioxide (22-32) mmol/L BUN (7-17) mg/dL Creatinine (0.52-1.04) mg/dL Estimated GFR (>60) mL/min BUN/Creatinine Ratio (6-22) Glucose (70-99) mg/dL Lactate (0.7-2.1) mmol/L Calcium (8.4-10.2) mg/dL Total Bilirubin (0.2-1.3) mg/dL AST (14-36) IU/L ALT (<35) IU/L Alkaline Phosphatase (38-126) U/L Troponin I (0.01-0.034) ng/mL NT-Pro-B Natriuret Pep (<450) pg/mL Total Protein (6.3-8.2) g/dL Albumin (3.5-5.0) g/dL Globulin (1.7-4.1) g/dL Albumin/Globulin Ratio (1.0-2.8) Procalcitonin (<0.5) ng/mL Urine Color Yellow Urine Appearance Clear Urine pH 5.5 (4.5-8.0) Ur Specific [place] 1.020 (1.000-1.035) Urine Protein 2+ H (Negative) Urine Glucose (UA) Negative (Negative) g/dL Urine Ketones Negative (NEGATIVE) Urine Occult Blood 2+ H (Negative) Urine Nitrate Negative (Negative) Urine Bilirubin Negative (NEGATIVE) Urine Urobilinogen 0.2 (0.2) E.U./dL Ur Leukocyte Esterase Negative (NEGATIVE) Urine RBC 0-1/hpf (0-5/HPF) Urine WBC None seen (0-5/HPF) Ur Squamous Epith Cells 5-10 /hpf H (0-5/HPF) Amorphous Sediment 1+ Urine Bacteria Few (2-10) H (None) Ur Culture Indicated? Cult not indicated Vol Urine Centrifuged 10ml (spun) Nasal Screen MRSA (PCR) Not detected (Not Detect) SARS-CoV-2 (PCR) (Negative) Influenza A (RT-PCR) (NEGATIVE) Influenza B (RT-PCR) (NEGATIVE) RSV (PCR) (Negative) ECG Data Attestation: I personally reviewed and interpreted this ECG as follows: Interpretation: Sinus tachycardia rate of 119 NH 144 QRS of 104 QTC of 458, no acute ST elevation or depression. Patient has prior from 04/05/2025 showed sinus rhythm with similar appearing ST changes at that time. MDM Narrative Medical decision making narrative: Labs show white count of 22 increased from 12 in November, hemoglobin is 8.6 platelets are 660 with bands of 55%. INR is 3.7. Sodium, potassium chloride CO2 of 22 BUN 27 creatinine 0.74 lactate is 2.8. With a glucose of 280. Troponins indeterminate 0.045 with a BNP of 1800. Procalcitonin is 1.64 EKG sinus tachycardia, no acute changes compared to prior from 12/03/2024 Chest x-ray, prelim shows some opacification particularly in the right appears bronchus may have some obstructive changes well in the right. No pneumothorax appreciated no mediastinal shift appreciated. CTA chest, main pulmonary artery prominent 2.7 diameter no evidence of PE ascending thoracic aortic aneurysm measures 4.2 cm diameter. Bulky subcarinal mass lesion measures 3.7 cm extends her right hilum or complete obstruction of right lower bronchus consolidation right lower lobe present. Patchy bilateral pulmonary nodules or multifocal infiltrates present. Both pleural spaces are clear. Esophagus shows gaseous distention. Exaggerated thoracic kyphosis associated sclerotic lesion at T3. Upper abdomen low-density hepatic lesions probably reflect metastatic disease low density lesion in the mid pancreatic body measures 1.5 cm Patient received sepsis fluids, IV antibiotics. Reports allergy to penicillin unclear what this is a so was covered with Levaquin. Patient notes a is high aspiration risk has a PEG tube in place for this, also has not area that is sounds like has bronchial obstruction could be developing post obstructive pneumonia, PE, COVID or other infectious causes are also potential cause. Chest x-ray shows appears to be obstructive change but we will obtain CT chest as patient has quite a complicated history. On rechecked patient has had increasing hypoxia 88% on 6 L nasal cannula patient is resting quietly. Discussed may need to upgrade to high flow. Patient meets septic criteria was given 30 cc/kilos bolus, IV antibiotics. Patient initially on nasal cannula/non-rebreather had to upgrade to high-flow to [place] O2 sats. CT imaging shows what appears to be bilateral pneumonia as well as bulky right hilar adenopathy causing obstruction or right lower lobe bronchus and right lower lobe consolidation. Have long discussion with the patient and family about code status. Reached out to [facility]/ for patient. Discussed with coordinator @ [phone]. Dr. Scruggs, oncology at [phone] agrees with transfer feels the patient is appropriate. Because she is currently on high-flow may need to talk with the register clerk. Spoke with the register clerk, Dr. Lauren. When asked for a trial with a non-rebreather nose can probably go to the floor service if not having increasing O2 requirements on high-flow. But discussed could be issues with transportation. Would ask that we add vancomycin and Flagyl for broader spectrum coverage and MRSA swab if available. This was added on. Patient is accepted at , waiting for bed assignment. Did weaned down O2 patient is currently off high-flow and on 6L currently. Patient signed out to Dr. Harris overnight while awaiting bed assignment <Thomas Harris MD - Last Filed: 01/27/25 05:41> Lab Data Labs: Lab Results 01/26/25 01/26/25 01/26/25 Range/Units 10:32 10:36 12:55 WBC 22.4 H (4.5-11.0) X10^3/uL RBC 3.18 L (4.0-5.2) X10^6/uL Hgb 8.6 L (12.0-16.0) g/dL Hct 26.3 L (36-46) % MCV 82.8 (80-100) fL MCH 27.1 (26-34) PG MCHC 32.8 (30-36) % RDW 16.7 H (11.6-14.8) % Plt Count 660 H (150-400) X10^3/uL Neut % (Auto) Not Reportable Lymph % (Auto) Not Reportable Greer % (Auto) Not Reportable Eos % (Auto) Not Reportable Baso % (Auto) Not Reportable Lymph # (Auto) Not Reportable Greer # (Auto) Not Reportable Baso # (Auto) Not Reportable Total Counted 100 Seg Neutrophils % 27.0 L (38-70) % Band Neutrophils % 55.0 H (3-7) % Lymphocytes % (Manual) 9.0 L (25-45) % Monocytes % (Manual) 7.0 (2-11) % Metamyelocytes % 1.0 H (-0) % Myelocytes % 1.0 H (-0) % Neutrophils # (Manual) 38331 H (4690-2310) /uL RBC Morphology See Anisocytosis 1+ H PT 41.0 H (9.4-12.5) SECONDS INR 3.7 H (0.9-1.3) ABG Sample Site ABG pH (7.35-7.45) ABG pCO2 (35-45) mmHg ABG pO2 (80-100) mmHg ABG HCO3 (23-27) mmol/L ABG Total CO2 (23-27) mmol/L ABG O2 Saturation (95-100) % ABG Base Excess (-2-3) mmol/L Zachariah Test Respiration Rate O2 Delivery Device FiO2 % % Sodium 139 (137-145) mmol/L Potassium 3.9 (3.4-5.1) mmol/L Chloride 104 (98-107) mmol/L Carbon Dioxide 22 (22-32) mmol/L BUN 37 H (7-17) mg/dL Creatinine 0.74 (0.52-1.04) mg/dL Estimated GFR > 60 (>60) mL/min BUN/Creatinine Ratio 50.0 H (6-22) Glucose 280 H (70-99) mg/dL Lactate 2.8 H 2.3 H (0.7-2.1) mmol/L Calcium 8.5 (8.4-10.2) mg/dL Total Bilirubin 0.3 (0.2-1.3) mg/dL AST 35 (14-36) IU/L ALT 21 (<35) IU/L Alkaline Phosphatase 125 (38-126) U/L Troponin I 0.045 H (0.01-0.034) ng/mL NT-Pro-B Natriuret Pep 1800 H (<450) pg/mL Total Protein 7.3 (6.3-8.2) g/dL Albumin 3.5 (3.5-5.0) g/dL Globulin 3.8 (1.7-4.1) g/dL Albumin/Globulin Ratio 0.9 L (1.0-2.8) Procalcitonin 1.64 H (<0.5) ng/mL Urine Color Urine Appearance Urine pH (4.5-8.0) Ur Specific [place] (1.000-1.035) Urine Protein (Negative) Urine Glucose (UA) (Negative) g/dL Urine Ketones (NEGATIVE) Urine Occult Blood (Negative) Urine Nitrate (Negative) Urine Bilirubin (NEGATIVE) Urine Urobilinogen (0.2) E.U./dL Ur Leukocyte Esterase (NEGATIVE) Urine RBC (0-5/HPF) Urine WBC (0-5/HPF) Ur Squamous Epith Cells (0-5/HPF) Amorphous Sediment Urine Bacteria (None) Ur Culture Indicated? Vol Urine Centrifuged Nasal Screen MRSA (PCR) (Not Detect) SARS-CoV-2 (PCR) Negative (Negative) Influenza A (RT-PCR) Flu a negative (NEGATIVE) Influenza B (RT-PCR) Flu b negative (NEGATIVE) RSV (PCR) Negative (Negative) 01/26/25 01/26/25 01/27/25 Range/Units 15:25 20:13 03:46 WBC (4.5-11.0) X10^3/uL RBC (4.0-5.2) X10^6/uL Hgb (12.0-16.0) g/dL Hct (36-46) % MCV (80-100) fL MCH (26-34) PG MCHC (30-36) % RDW (11.6-14.8) % Plt Count (150-400) X10^3/uL Neut % (Auto) Lymph % (Auto) Greer % (Auto) Eos % (Auto) Baso % (Auto) Lymph # (Auto) Greer # (Auto) Baso # (Auto) Total Counted Seg Neutrophils % (38-70) % Band Neutrophils % (3-7) % Lymphocytes % (Manual) (25-45) % Monocytes % (Manual) (2-11) % Metamyelocytes % (-0) % Myelocytes % (-0) % Neutrophils # (Manual) (4612-6675) /uL RBC Morphology Anisocytosis PT (9.4-12.5) SECONDS INR (0.9-1.3) ABG Sample Site Left radial ABG pH 7.42 (7.35-7.45) ABG pCO2 42.9 (35-45) mmHg ABG pO2 140 H (80-100) mmHg ABG HCO3 28 H (23-27) mmol/L ABG Total CO2 27 (23-27) mmol/L ABG O2 Saturation 99 (95-100) % ABG Base Excess 3.3 H (-2-3) mmol/L Zachariah Test Positive Respiration Rate 28 O2 Delivery Device oxy mask FiO2 % 50.0 % % Sodium (137-145) mmol/L Potassium (3.4-5.1) mmol/L Chloride (98-107) mmol/L Carbon Dioxide (22-32) mmol/L BUN (7-17) mg/dL Creatinine (0.52-1.04) mg/dL Estimated GFR (>60) mL/min BUN/Creatinine Ratio (6-22) Glucose (70-99) mg/dL Lactate (0.7-2.1) mmol/L Calcium (8.4-10.2) mg/dL Total Bilirubin (0.2-1.3) mg/dL AST (14-36) IU/L ALT (<35) IU/L Alkaline Phosphatase (38-126) U/L Troponin I (0.01-0.034) ng/mL NT-Pro-B Natriuret Pep (<450) pg/mL Total Protein (6.3-8.2) g/dL Albumin (3.5-5.0) g/dL Globulin (1.7-4.1) g/dL Albumin/Globulin Ratio (1.0-2.8) Procalcitonin (<0.5) ng/mL Urine Color Yellow Urine Appearance Clear Urine pH 5.5 (4.5-8.0) Ur Specific [place] 1.020 (1.000-1.035) Urine Protein 2+ H (Negative) Urine Glucose (UA) Negative (Negative) g/dL Urine Ketones Negative (NEGATIVE) Urine Occult Blood 2+ H (Negative) Urine Nitrate Negative (Negative) Urine Bilirubin Negative (NEGATIVE) Urine Urobilinogen 0.2 (0.2) E.U./dL Ur Leukocyte Esterase Negative (NEGATIVE) Urine RBC 0-1/hpf (0-5/HPF) Urine WBC None seen (0-5/HPF) Ur Squamous Epith Cells 5-10 /hpf H (0-5/HPF) Amorphous Sediment 1+ Urine Bacteria Few (2-10) H (None) Ur Culture Indicated? Cult not indicated Vol Urine Centrifuged 10ml (spun) Nasal Screen MRSA (PCR) Not detected (Not Detect) SARS-CoV-2 (PCR) (Negative) Influenza A (RT-PCR) (NEGATIVE) Influenza B (RT-PCR) (NEGATIVE) RSV (PCR) (Negative) MDM Narrative Medical decision making narrative: Labs show white count of 22 increased from 12 in November, hemoglobin is 8.6 platelets are 660 with bands of 55%. INR is 3.7. Sodium, potassium chloride CO2 of 22 BUN 27 creatinine 0.74 lactate is 2.8. With a glucose of 280. Troponins indeterminate 0.045 with a BNP of 1800. Procalcitonin is 1.64 EKG sinus tachycardia, no acute changes compared to prior from 12/03/2024 Chest x-ray, prelim shows some opacification particularly in the right appears bronchus may have some obstructive changes well in the right. No pneumothorax appreciated no mediastinal shift appreciated. CTA chest, main pulmonary artery prominent 2.7 diameter no evidence of PE ascending thoracic aortic aneurysm measures 4.2 cm diameter. Bulky subcarinal mass lesion measures 3.7 cm extends her right hilum or complete obstruction of right lower bronchus consolidation right lower lobe present. Patchy bilateral pulmonary nodules or multifocal infiltrates present. Both pleural spaces are clear. Esophagus shows gaseous distention. Exaggerated thoracic kyphosis associated sclerotic lesion at T3. Upper abdomen low-density hepatic lesions probably reflect metastatic disease low density lesion in the mid pancreatic body measures 1.5 cm Patient received sepsis fluids, IV antibiotics. Reports allergy to penicillin unclear what this is a so was covered with Levaquin. Patient notes a is high aspiration risk has a PEG tube in place for this, also has not area that is sounds like has bronchial obstruction could be developing post obstructive pneumonia, PE, COVID or other infectious causes are also potential cause. Chest x-ray shows appears to be obstructive change but we will obtain CT chest as patient has quite a complicated history. On rechecked patient has had increasing hypoxia 88% on 6 L nasal cannula patient is resting quietly. Discussed may need to upgrade to high flow. Patient meets septic criteria was given 30 cc/kilos bolus, IV antibiotics. Patient initially on nasal cannula/non-rebreather had to upgrade to high-flow to [facility] O2 sats. CT imaging shows what appears to be bilateral pneumonia as well as bulky right hilar adenopathy causing obstruction or right lower lobe bronchus and right lower lobe consolidation. Have long discussion with the patient and family about code status. Reached out to [facility]/ for patient. Discussed with coordinator @ [phone]. Dr. Scruggs, oncology at [phone] agrees with transfer feels the patient is appropriate. Because she is currently on high-flow may need to talk with the register clerk. Spoke with the register clerk, Dr. Lauren. When asked for a trial with a non-rebreather nose can probably go to the floor service if not having increasing O2 requirements on high-flow. But discussed could be issues with transportation. Would ask that we add vancomycin and Flagyl for broader spectrum coverage and MRSA swab if available. This was added on. Patient is accepted at , waiting for bed assignment. Did weaned down O2 patient is currently off high-flow and on 6L currently. Patient signed out to Dr. Harris overnight while awaiting bed assignment 01/26/25, Steven Lara. Sign-out from Dr. Henderson. Awaiting transfer to [facility], await listed. Chart reviewed, patient seen examined by me, case discussed with patient and with family member at bedside. 74-year-old female with history of neuroendocrine stage 4 lung cancer, liver mets, followed by [facility], history of aspiration, has PEG tube, awaiting radiation further treatment tomorrow, has increased heart rate increased work of breathing, oxygen requirement. On 4 L nasal cannula oxygen now, weaned down from [address] chest showing bilateral pneumonia, bulky right hilar adenopathy with right lower lobe bronchus obstruction and right lower lobe consolidation. IV antibiotics including Levaquin, Flagyl, vancomycin ordered. Patient accepted to [facility]. No beds available there now. Wait listed. Assumed interim care. UA negative. 0030, DUTY ENGINEER reports no beds anticipated [facility] overnight. 0245, patient more gurgly, increased respiratory distress. RT consult for tracheal suctioning as tolerated, we will add IV Decadron, SVN albuterol/ipratropium. OxyMask 8 L flow per RT at bedside. PH 7.423, pCO2 42.9, PaO2 140. 0400, case discussed with [facility] register clerk Dr. Saucedo, accepts for transfer to their ICU, history of penicillin allergy noted, prior Levaquin Flagyl vancomycin, requests addition of cefepime. IV cefepime ordered. 0420, bed available, assigned, will initiate air ambulance transfer. Patient agreeable. RN left message with 's voicemail Critical Care Time <Gisell Henderson DO - Last Filed: 01/27/25 15:19> Critical Care Time Critical Care Time: Yes Attestation: The high probability of a clinically significant, sudden or life threatening deterioration of the cardiac/pulmonary system(s) required my full and direct attention, intervention and personal management. The aggregate critical care time was [--] minutes. This time is in addition to time spent performing reported procedures but includes the following: [x] Data Review and interpretation [x] Patient assessment and monitoring of vital signs [x] Documentation [x] Medication orders and management <Thomas Harris MD - Last Filed: 01/27/25 05:41> Critical Care Time Total Critical Care Time: 35 Attestation: The high probability of a clinically significant, sudden or life threatening deterioration of the cardiac/pulmonary system(s) required my full and direct attention, intervention and personal management. The aggregate critical care time was [35] minutes. This time is in addition to time spent performing reported procedures but includes the following: [x] Data Review and interpretation [x] Patient assessment and monitoring of vital signs [x] Documentation [x] Medication orders and management Discharge Plan Departure Patient Disposition: [facility] Clinical Impression: Pneumonia, Obstructive pneumonia, Lung cancer, Sepsis Prescriptions: No Action simvastatin 20 mg tablet 20 mg PO DAILY estradiol 10 mcg tablet 10 mcg VAGINAL QTUTH atorvastatin 40 mg tablet 40 mg PO DAILY olanzapine 5 mg tablet 5 mg PO ONCE PM omeprazole 40 mg capsule,delayed release(DR/EC) 40 mg PO DAILY metformin 1,000 mg tablet 1,000 mg PO BID atropine 1 % drops Patient Comments: Place 1 drop under the tongue. Hold in mouth for 2 min then spit. Repeat twice per day as needed. insulin lispro 100 unit/mL insulin pen SUBCUT Patient Comments: [NO ORIGINAL SIG] everolimus (antineoplastic) 10 mg tablet 10 mg PO DAILY Referrals: Laura Pringle MD [Primary Care Provider, Internal Medicine]
--- NOTE | 2025-01-26 10:27 | DI.RAD.S_ITS ---
PROCEDURE: XR CHEST 1V INDICATIONS: Shortness of breath TECHNIQUE: One view of the chest was acquired. COMPARISON: [facility], CR, XR CHEST 2V, 12/03/2024, 15:05. FINDINGS: Surgical changes and devices: None. Lungs and pleura: Obscuration right hemidiaphragm. left lung and pleural space clear. Atherosclerotic vascular calcification noted in the aortic arch. Mediastinum: Mediastinal contours appear normal. Heart size is normal. Bones and chest wall: No suspicious bony lesions. Overlying soft tissues appear unremarkable. IMPRESSION: Moderate right pleural effusion Approved by: Omid Giron M.D. on 01/26/2025 at 10:18
--- NOTE | 2025-01-26 10:45 | EKG_ITS ---
[facility] [address] [place] [address] Test Date: 2025-01-26 Pat Name: Ginger Louise Department: [facility] Room: Gender: Female Software Quality Manager: RAYA : 1950 Requested By: Order Number: [id number] Reading MD: Dwight Victor MD Measurements Intervals Freedom Rate: 119 P: 35 NH: 144 QRS: -26 QRSD: 104 T: 58 QT: 326 QTc: 458 Interpretive Statements Sinus tachycardia Minimal voltage criteria for LVH, may be normal variant ( Holden product ) Electronically Signed On 01-26-2025 14:44:27 PDT by Dwight Victor MD
--- NOTE | 2025-01-26 10:52 | DI.CT.S_ITS ---
PROCEDURE: CT ANGIO CHEST PE PROTOCOL INDICATIONS: fever, sob, lung mass, ? obstruction/aspiration TECHNIQUE: After the administration of intravenous contrast, 2 mm thick sections acquired from the pulmonary apices to the posterior costophrenic angles. MIP reformats of the arterial vasculature were utilized. For radiation dose reduction, the following was used: automated exposure control, adjustment of mA and/or kV according to patient size. COMPARISON: [facility], CT, CT CHEST ABDOMEN PELVIS WITH CONTRAST, 09/16/2022, 14:21. FINDINGS: Image quality: Diagnostic. Pulmonary arteries: Main pulmonary artery is prominent at 2.7 cm diameter. No evidence of pulmonary embolism. Ascending thoracic aortic aneurysm measures 4.2 cm in diameter. Bulky subcarinal mass lesion measures approximately 3.7 cm and extends into the right hilum, where there is complete obstruction of the right lower lobe bronchus. Consolidation of the right lower lobe present. Patchy bilateral pulmonary nodules or multifocal infiltrates present. Both pleural spaces are clear. Esophagus shows gaseous distension. Exaggerated thoracic kyphosis associated with sclerotic lesion at T3 In the upper abdomen, low-density hepatic lesions probably reflect metastatic disease low-density lesion in the mid pancreatic body measures 1.5 cm IMPRESSION: No evidence of pulmonary embolism. Prominent main pulmonary artery may reflect pulmonary hypertension. Ascending thoracic aortic aneurysm measures 4.2 cm Widespread metastatic disease. Bilateral small pulmonary nodules, bulky hilar and subcarinal mediastinal adenopathy, osteoblastic T3 lesion, and multiple hepatic low-density nodules as well as mid pancreatic nodule all consistent with metastatic disease. Bulky right hilar adenopathy results in obstruction of right lower lobe bronchus and right lower lobe consolidation Approved by: Omid Giron M.D. on 01/26/2025 at 11:33
[2025-01-26] MEDS: SODIUM CHLORIDE 0.9% 1,572 ML 524 ML IV (10:58)
[2025-01-26 11:05] LABS: INR 3.7 (0.9-1.3); Prothrombin Time 41.0 SECONDS (9.4-12.5)
[2025-01-26 11:16] LABS: Influenza A - CEPHEID Flu A NEGATIVE (NEGATIVE); Influenza B - CEPHEID Flu B NEGATIVE (NEGATIVE)
[2025-01-26 11:16] LABS: Lactate (Lactic Acid) 2.8 mmol/L (0.7-2.1)
[2025-01-26 11:17] LABS: Alanine Aminotransferase 21 IU/L (<35); Albumin 3.5 g/dL (3.5-5.0); Albumin Globulin Ratio 0.9 (1.0-2.8); Alkaline Phosphatase 125 U/L (38-126); Blood Urea Nitrogen 37 mg/dL (7-17); Calcium 8.5 mg/dL (8.4-10.2); Carbon Dioxide 22 mmol/L (22-32); Chloride 104 mmol/L (98-107); Estimated Glomerular Filt Rate > 60 mL/min (>60); Globulin 3.8 g/dL (1.7-4.1); Glucose 280 mg/dL (70-99); HEMOLYSIS < 15 (0-50); Potassium 3.9 mmol/L (3.4-5.1); Sodium 139 mmol/L (137-145); Total Protein 7.3 g/dL (6.3-8.2)
[2025-01-26 11:19] LABS: COVID-19 CEPHEID 4-PLEX PCR Negative (Negative)
[2025-01-26 11:29] LABS: NT-proBNP (BNP-Adult 18+) 1800 pg/mL (<450); Troponin I 0.045 ng/mL (0.01-0.034)
[2025-01-26 11:35] LABS: Procalcitonin 1.64 ng/mL (<0.5)
[2025-01-26 11:46] LABS: Hematocrit 26.3 % (36-46); Hemoglobin 8.6 g/dL (12.0-16.0); Mean Corpuscular HGB Conc 32.8 % (30-36); Mean Corpuscular Hemoglobin 27.1 PG (26-34); Mean Corpuscular Volume 82.8 fL (80-100); Platelet Count 660 X10^3/uL (150-400)
[2025-01-26 11:49] LABS: Add Manual Diff / Slide Review YES
[2025-01-26 12:07] LABS: Band Neutrophils Percent 55.0 % (3-7); Lymphocytes Percent Manual 9.0 % (25-45); Metamyelocytes Percent 1.0 % (-0); Monocytes Percent Manual 7.0 % (2-11); Myelocytes Percent 1.0 % (-0); Neutrophils Absolute Manual 18368 /uL (3000-5900); Segmented Neutrophils Percent 27.0 % (38-70); Total Cells Counted 100
[2025-01-26 12:08] LABS: Anisocytosis 1+; RBC Morphology See
[2025-01-26 12:18] LABS: Reflexed Lactate in 2 Hours Y
[2025-01-26 13:14] LABS: Lactate 2HR (Lactic Acid Rflx) 2.3 mmol/L (0.7-2.1)
[2025-01-26] MEDS: metroNIDAZOLE 500 MG/100 ML PIGGYBACK 100 MG IV ×2 (15:18→23:23)
[2025-01-26] MEDS: VANCOMYCIN 1,000 MG/200 ML PIGGYBACK 200 MG IV (16:20)
[2025-01-26 17:11] LABS: MRSA (Nasal) PCR NOT DETECTED (Not Detect)
[2025-01-26 21:23] LABS: Appearance Urine UA CLEAR; Bilirubin Urine UA NEGATIVE (NEGATIVE); Color Urine UA YELLOW; Glucose Urine UA NEGATIVE (Negative); Ketones Urine UA NEGATIVE (NEGATIVE); Leukocyte Esterase Urine UA NEGATIVE (NEGATIVE); Nitrite Urine UA NEGATIVE (Negative); Occult Blood Urine UA 2+ (Negative); Protein Urine UA 2+ (Negative); Specific Gravity Urine UA 1.020 (1.000-1.035); Urobilinogen Urine UA 0.2 E.U./dL (0.2)
[2025-01-26 21:34] LABS: pH Urine UA 5.5 (4.5-8.0)
[2025-01-26 22:05] LABS: Culture Indicated Urine Cult Not Indicated
[2025-01-27] VITALS (28 sets, daily range): BP systolic 144–236; BP diastolic 85–144; PULSE 101–132; RESP 22–75; TEMP 36.7; O2SAT 93–99
[2025-01-27] MEDS: ALBUTEROL/IPRATROPIUM 3 ML AMPUL INH (03:23)
--- NOTE | 2025-01-27 03:34 | PC.NURSE ---
rn notes change in vital signs responds to room and pt sitting on commode coughing, JVD noted, high HR, high BP, desatting, retracting, and stating she cant breathe in very broken sentences. provider and rt called to bedside to evaluate. rn attempts to suction pt but pt gagging and causing more panic. oxy mask placed on pt at 9lpm. rt arrives to bedside and suctions pt several times. rn remains at beside until respiratory distress improved and vital signs returning to baseline range.
[2025-01-27 03:50] LABS: Allen Test for ABG Passed? Positive; Blood Gas Collection Site Left Radial; Delivery System oxy mask; HCO3 ABG 28 mmol/L (23-27); Oxygen Saturation ABG 99 % (95-100); PCO2 ABG 42.9 mmHg (35-45); PO2 ABG 140 mmHg (80-100); TCO2 ABG 27 mmol/L (23-27)
[2025-01-27] MEDS: CEFEPIME 2 GM in SODIUM CHLORIDE 0.9% 100 ML IV (04:21)
--- NOTE | 2025-01-27 04:50 | PC.NURSE ---
pc to pt at this time to notify of pending transfer, voicemail left
--- NOTE | 2025-01-27 04:51 | PC.NURSE ---
care to santos in [facility]
== END 2025-01-27 05:14 | disposition short-term general hospital (02) ==
PROVIDERS: Emergency Provider Emergency Medicine; Family Provider Internal Medicine; PCP Internal Medicine
DX: J18.9 Pneumonia, unspecified organism (principal); R09.02 Hypoxemia; C34.90 Malignant neoplasm of unspecified part of unspecified bronchus or lung; A41.9 Sepsis, unspecified organism; Z92.21 Personal history of antineoplastic chemotherapy
CPT/HCPCS: 36415; 36600; 71045; 71275; 80053; 81001; 82805; 83605; 83880; 84145; 84484; 85007; 85025; 85610; 87040; 87637; 87797; 93005; 93010; 94640; 96365; 96366; 96367; 96375; 99285; 99291; J0692; J1100; J1956; J3375; Q9967